=== PATIENT | female | born 1965 | race Caucasian/White ===

== ENCOUNTER 2024-09-16 10:39 | Outpatient (RCR) | payer MEDICAID, SELFPAY | END 2024-09-16 23:59 | disposition home or self-care (01) | LOC: PT.CARL 10:39 | PROVIDERS: Visit Provider Physician Assistant | DX: M47.816 Spondylosis without myelopathy or radiculopathy, lumbar region (principal) | CPT/HCPCS: 97162 ==

== ENCOUNTER 2024-11-04 11:00 | Outpatient (RCR) | payer MEDICAID, SELFPAY | END 2024-11-04 23:59 | disposition home or self-care (01) | LOC: PT.CARL 11:00 | PROVIDERS: Visit Provider Physician Assistant | DX: M79.18 Myalgia, other site (principal) | CPT/HCPCS: 97032; 97035; 97110; 97161 ==

== ENCOUNTER 2024-12-02 10:39 | Outpatient (RCR) | payer MEDICAID, SELFPAY | END 2024-12-02 23:59 | disposition home or self-care (01) | LOC: PT.CARL 10:39 | PROVIDERS: Visit Provider Physician Assistant | DX: M79.18 Myalgia, other site (principal) ==

== ENCOUNTER 2025-02-27 17:49 | Emergency (ER) | payer MEDICAID, SELFPAY ==
--- OUTSIDE RECORDS SUMMARY | 2025-01-07 10:37 | XMS_ITS | Continuity of Care Document ---
Author Organization [facility] Phone Care Team Providers Care Taker Off Braker Machine Name Role Phone COLTEN CRUMP Surgeon COLTEN CRUMP Primary Attending COLTEN CRUMP Unavailable JENNA DE GUZMAN Primary Care COLTEN CRUMP Admitting ALLERGIES AND ADVERSE REACTIONS ALLERGIES AND ADVERSE REACTIONS Code System Allergy Substance Adverse Reaction Date Reaction (Severity) Comment Status Reported By Updated By 7480 RXNorm CODEINE Adverse reaction to substance Not Specified active [id number] on May 17, 2023 3:47:[address] [facility] 67629 RXNorm PROVIGIL Rash Shortness of breath/diffi culty breathing active [id number] on May 17, 2023 3:47:28 AM UT [id number] RXNorm PERCOCET Rash Shortness of breath/diffi culty breathing active [id number] on May 17, 2023 3:47:28 AM UT ASSESSMENTS Mononeuropathy ; FAMILY HISTORY RELATION: Father Status: Cause of : Unknown Age at : 70 SNOMED-CT Diagnosis Age At Onset [id number] Chronic obstructive lung disease RELATION: Mother Status: Cause of : Unknown Age at : 49 SNOMED-CT Diagnosis Age At Onset [id number] Heart-lung transplant failure an d rejection PROBLEMS PATIENT PROBLEMS Code Description/Comments Category Status Upda lopez By [id number] Mononeuropathy active [id number] on December 28, 2024 1:28:53 PM UT MEDICATIONS HOME MEDICATIONS Status RXNORM NDC Medication Dose Route Frequency Dates Comments Reported By Updated By Active 18779 08925 7 Biotin Oral Tablet 01549 MCG 17736 .0 MCG ORAL DAILY Last Dose: [id number] on 2024 1:52:21 PM UT Active 129659 71197 47767 3 buPROPion (WELLBUTRIN XL) 300.0 MG ORAL DAILY Last Dose: [id number] on [facility] 2024 1:52:21 PM UT Active 2146869 01503 67683 6 colestipol (COLESTID) 1.0 GM ORAL BID Last Dose: [id number] on [facility] 2024 1:52:21 PM UT Active 52220 77679 7 Cranberry Ultra Strength Oral Capsule 250-60 MG 1.0 CAP ORAL BID Last Dose: [id number] on [facility] 2024 1:52:21 PM UT Active 680377 63778 70149 6 Dexlansopraz ole Capsule Delayed Release 30 MG 30.0 MG ORAL DAILY Last Dose: [id number] on [facility] 2024 1:52:22 PM UT Active 2017514 51550 50493 1 Dimethyl Fumarate Capsule Delayed Release 240 MG 240.0 MG ORAL BID Last Dose: [id number] on [facility] 2024 1:52:22 PM UT Active 001752 40668 06547 0 EZETIMIBE 10.0 MG ORAL DAILY Last Dose: [id number] [facility] 2024 1:52:22 PM UT Active 5791459 27317 55423 1 fluticasone nasal (FLONASE) 50 MCG/ACT 1.0 SPR NASAL DAILY Last Dose: [id number] [facility] 2024 1:52:22 PM UT Active 588860 04799 68115 1 hydroCHLOROt hiazide 12.5 MG ORAL DAILY Last Dose: [id number] [facility] 2024 1:52:22 PM UT Active 906516 22343 65426 1 hydrOXYzine (ATARAX) 25.0 MG ORAL BID Last Dose: [id number] on [facility] 2024 1:52:22 PM UT Active 595684 38281 98821 0 Levocetirizi ne Dihydrochlor kina Tablet 5 MG 5.0 MG ORAL DAILY Last Dose: [id number] [facility] 2024 1:52:22 PM UT Active 192541 03985 97169 1 lisinopril (ZESTRIL) 5.0 MG ORAL DAILY Last Dose: myl4541 on [facility] 2024 1:52:[address] [facility] Active 335195 81422 10966 0 Meclizine HCl Oral Tablet 12.5 MG 12.5 MG ORAL TIDPRN Last Dose: [id number] on [facility] 2024 1:52:23 PM UT Active 549353 70242 59732 5 melatonin 5.0 MG ORAL BEDTIME Last Dose: btl4335 on [facility] 2024 1:52:23 PM UT Active 117897 94157 56447 1 methocarbamo l (ROBAXIN) 500.0 MG ORAL TID Last Dose: rsh3471 on [facility] 2024 1:52:[address] [facility] Active 325225 28076 13822 7 Metoprolol Succinate ER Tablet Extended Release 24 Hour 50 MG 50.0 MG ORAL DAILY Last Dose: [id number] on [facility] 2024 1:52:[address] [facility] Active 44770 68860 1 multiple vitamin (ONE-A-DAY) 1.0 TAB ORAL DAILY Last Dose: [id number] on [facility] 2024 1:52:[address] [facility] Active 317633 33356 06293 1 oxybutynin chloride (DITROPAN) 5.0 MG ORAL BID Last Dose: [id number] on [facility] 2024 1:52:[address] [facility] Active 1085889 84057 16928 8 Prempro Oral Tablet 0.45-1.5 MG 1.0 TAB ORAL DAILY Last Dose: [id number] on [facility] 2024 1:52:[address] [facility] Active 476935 86712 12638 0 traMADol (ULTRAM) 50.0 MG ORAL BIDPRN Last Dose: [id number] on [facility] 2024 1:52:[address] [facility] DISCHARGE MEDICATIONS Status RXNORM NDC Medication Dose Route Frequency Dates Dis pense Data Comments Physician Updated By No Discharge Medication Info rmation Available INPATIENT MEDICATIONS Status RXNORM ND Medication Dose Route Frequency Rat e Quantity Dates Indication Dispense Data Comments Physician Updated By [facility] [id number] 9871 9028 520 diazePAM (VALIUM) 5 MG TABS 5.0 MG ORAL ONE TIME ONLY (SCHEDULED DOSE) Start: 2024 11:35: 00 AM UTC End: 2024 11:35: 00 AM UTC [facility] 11:35:00 AM UTC Discont inued 0539976 6486 3048 917 lidocaine MPF w/epi 2 %-1:209777 SOLN 10.0 ML INTRAV ENOUS ONE TIME ONLY (SCHEDULED DOSE) Start: 2024 11:35: 00 AM UTC End: 2024 11:35: 00 AM UTC MUNISWAMY COLTEN K INTERFAC ED on 2024 11:35:00 AM UTC Discont inued 9634120 0040 9115 901 bupivacaine PF 0.25% 10 ML SOLN 10.0 ML EPIDUR AL ONE TIME ONLY (SCHEDULED DOSE) Start: 2024 11:35: 00 AM UTC End: 2024 11:35: 00 AM UTC MUNISWAMY COLTEN K INTERFAC ED on 2024 11:35:00 AM UT SOCIAL HISTORY SOCIAL HISTORY - Smoking Status SNOMED-CT Social History Element Description Effective Dates Offered Cessation Comment Updated By [id number] Historical Tobacco smoking status Never Smoked Not Applicable [id number] on May 13, 2023 12:42:41 PM UT SOCIAL HISTORY - Gender Sex: Female SOCIAL HISTORY - Status : status i nformation is not available Intention in Next Year: intention information is not available SOCIAL HISTORY - Assessments Code System Description Status Date Value of Assessment Updated By Comment Assessment Information is no t available SOCIAL HISTORY - [place] Affiliation [place] information is not av ailable SOCIAL HISTORY - Legal Sex Legal Sex information is not available SOCIAL HISTORY - Sexual Behavior Sexual Orientation Gender Identity SNOMED-CT Description SNO MED -CT Description Activity Level No of Partners Partner Type UpdatedBy Information is not available SOCIAL HISTORY - Occupation Occupation information is no t available VITAL SIGNS PATIENT VITAL SIGNS This section displays the mo st recent value for each vital sign as of January 07, 2025 3:37:11 PM UT Loinc Code Vital Sign Activity Date Result Updated By 8302-2 Body height December 28 1:52:07 PM UTC 167.64 cm (66.0 in) [id number] on December 28, 2024 1:52:[place] [address]-0 Body mass index (BMI) [Ratio] December 28, 2024 1:52:07 PM UTC 39.141 kg/m2 3140-1 Body Surface Area Derived From Formula December 28, 2024 1:52:07 PM UTC 2.1709 m2 57805-0 Body weight Measured December 28, 2024 1:52:07 PM UTC 110.0 kg (243.0 lb) [id number] on December 28, 2024 1:52:07 PM UT PEDIATRIC GROWTH CHART - VITAL SIGNS This section displays Head C ircumference Percentile, Weight for Length Percentile and BMI Percentile Loinc Code Pediatric Measure Age (Months) Result Updat ed By No Pediatric Growth Chart Pe rcentile Information Available. PROCEDURES PATIENT PROCEDURES Procedure information is not available. PROCEDURE NOTE Note Title [facility] - Post Procedur e Note procedure done on 12/30/2024 Date Of Service January 04, 2025 3 :13:14 PM UT Created By [id number] on January 04, 2025 3:13:14 PM UTC Signed By [id number] on January 04, 2025 3:21:51 PM UTC Procedure / Surgery None right knee peripheral nerve stimulator trial Pre-Procedure Diagnosis Mononeuropathy Post- Procedure Diagnosis Mononeuropathy Procedure Description / Findings PNS Trial Procedure for mononeuropathy of the right lower extremity. Electrode Array Placement Procedure 00845 Trial x 2 leads After informed consent was obtained the patient was transported to the operative suite and placed in the Supine position. Noninvasive monitoring per routine anesthesia protocol were placed. The skin of right lower extremity was prepped with chloraprep and draped in sterile fashion to include sterile mask down, gloves, and surgical draping. The device package containing the electrode array is unpackaged and kept in the sterile field. The electrode array is laid on the skin and the 0 electrode at the top of the device is placed at the _ infrapatellar saphenous nerve {proximal} of the __medial tibial shaft___ location which is identified via {Fluoroscope}. Using a skin marker, a 1 cm sagittal line was marked over the needle entry location distally. The skin and deeper tissues was anesthetized using a mixture of 1% lidocaine and 0.25% bupivacaine with 1:100,000 Epinephrine. A 13G Coude needle was used to allow for easy insertion of the introducer. An introducer was passed through the subcutaneous tissues toward the __ infrapatellar nerve ___ nerve target. The introducer was advanced using a tenting approach to stay within the subcutaneous layer and to prevent diving into muscular fascia. The introducer is placed at a shallow angle no more than 10 degrees. The electrode array was inserted through the introducer and advanced to the _ infrapatellar ____ nerve {distal} along side the medial border of the proximal tibial plateau. The 2nd electrode array was inserted along the same tract with the 1st but was placed more superficially and not close to the bone. The needles were removed and the leads were secured to the skin using Stay-fix and a sterile covaderm dressing was placed. The connector device was secured to the skin using paper tape. Patient was then taken to the post anesthesia recovery area where the patient underwent further neurologic mapping with excellent coverage of the desired nerve per their report. There were no complications to the procedure. Patient will follow up in five days for evaluation of the spinal cord stimulator trial and lead removal. HARDWARE USED: 2 Lead Curonix electrodes Anesthesia Type Local anesthesia Specimens None Implants Not applicable Procedure Verfication Patient identity confirmed before operative/invasive procedure, Procedure time out, Verification of surgical site/laterality, Verification of surgical device count Estimated Blood Loss none Complications None Disposition of Patient home Electronically signed by SUSY STUART on [address] [facility] Problems Concern Status Health Concern problem infor mation not available. Smoking Status Status Years Used Consumed packs p er day Health Concern smoking histo ry information not available. Family History Concern Status Health Concern family histor y information not available. ENCOUNTERS ENCOUNTER INFORMATION Reason for Visit PNS TRIAL X 2 LEADS Admission December 30, 2024 11:21:00 AM U [facility] [address] [facility] [address] Discharge December 30, 2024 7:21:00 PM UT C DISCHARGED TO HOME OR SELF CARE ENCOUNTER DIAGNOSES Notes information is not drew ilable. Code System Diagnosis Onset Date Diagnosis information is not available. ABSTRACT DIAGNOSES Code System Diagnosis Updated By Abatement Date G58.9 ICD10 MONONEUROPATHY, UNSPECIFIED [id number] on January 07, 2025 3:36:43 PM UT G58.9 ICD10 MONONEUROPATHY, UNSPECIFIED [id number] on January 07, 2025 3:36:[address] [facility] M25.561 ICD10 PAIN IN RIGHT KNEE [id number] o n January 07, 2025 3:36:43 PM UT M19.011 ICD10 PRIMARY OSTEOART HRITIS, RIGHT SHOULDER [id number] on January 07, 2025 3:36:[address] 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 T84.84XD ICD10 PAIN DUE TO INTE RNAL ORTHOPEDIC PROSTHETIC DEVICES, IMPLANTS AND GRAFTS, SUBSEQUENT ENCOUNTER [id number] on January 07, 2025 3:36:[address] [facility] M25.511 ICD10 PAIN IN RIGHT SHOULDER [id number] on January 07, 2025 3:36:[address] [facility] M70.51 ICD10 OTHER BURSITIS O F KNEE, RIGHT KNEE [id number] on January 07, 2025 3:36:[address] [facility] M54.40 ICD10 LUMBAGO WITH SCI ATICA, UNSPECIFIED SIDE [id number] on January 07, 2025 3:36:[address] [facility] M79.18 ICD10 MYALGIA, OTHER SITE [id number] on January 07, 2025 3:36:[address] 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 Z88.8 ICD10 ALLERGY STATUS T O OTHER DRUGS, MEDICAMENTS AND BIOLOGICAL SUBSTANCES [id number] on January 07, 2025 3:36:[address] [facility] CARE TEAM Care Taker Off Braker Machine Role COLTEN CRUMP Surgeon COLTEN CRUMP Primary Attending COLTEN CRUMP Referring JENNA GAB Primary Care COLTEN CRUMP Admitting HOSPITAL DISCHARGE INSTRUCTION DISCHARGE INSTRUCTION Encounter [id number] Admit Date December 30, 2024 1 1:21:00 AM UTC Discharge Date December 30, 2024 7 :21:00 PM UTC PATIENT EDUCATION SUMMARY Patient/Visit Information: Patient Name: MAX MORRISSEY Diag: Attending Caregiver: SUSY Hudson Discharge Instruction Sheets Provided: Dr. Crump Spinal Cord Stimulator Patient Instructions: Followup Appointments/Instructions: CARE TEAM CARE director summer sessions Role on Team Location Telecom Status Start Date End Keon e Updated By SUSY STUART Surgeon normal December 30, 2024 11:21:00 AM UTC December 30, 2024 7:21:00 PM UTC [id number] on January 07, 2025 3:36:50 PM UTC GAB JENNA PCP normal December 25, 2024 5:14:16 PM UTC December 30, 2024 7:21:00 PM UTC [id number] on January 07, 2025 3:36:50 PM UTC SUSY STUART Referring normal December 25, 2024 5:14:16 PM UTC December 30, 2024 7:21:00 PM UTC [id number] on January 07, 2025 3:36:50 PM UTC SUSY STUART Attending normal December 25, 2024 5:14:16 PM UTC December 30, 2024 7:21:00 PM UTC [id number] on January 07, 2025 3:36:50 PM UTC SUSY STUART Admitting normal December 25, 2024 5:14:16 PM UTC December 30, 2024 7:21:00 PM UTC [id number] on January 07, 2025 3:36:50 PM UTC
--- OUTSIDE RECORDS SUMMARY | 2025-01-18 08:37 | XMS_ITS | Continuity of Care Document ---
Author Organization [facility] Phone Care Team Providers Care Elementary Secretary Name Role Phone COLTEN JAIN Admitting COLTEN JAIN Primary Attending JENNA DE GUZMAN Primary Care COLTEN JAIN Unavailable ALLERGIES AND ADVERSE REACTIONS ALLERGIES AND ADVERSE REACTIONS Code System Allergy Substance Adverse Reaction Date Reaction (Severity) Comment Status Reported By Updated By 6274 RXNorm CODEINE Adverse reaction to substance Not Specified active [id number] on May 17, 2023 3:47:27 AM [facility] [[email or web address]] 05840 RXNorm PROVIGIL Rash Shortness of breath/diffi culty breathing active [id number] on May 17, 2023 3:47:28 AM [facility] [[email or web address]] 195142 RXNorm PERCOCET Rash Shortness of breath/diffi culty breathing active [id number] on May 17, 2023 3:47:28 AM [facility] [[email or web address]] FAMILY HISTORY RELATION: Father Status: Cause of : Unknown Age at : 70 SNOMED-CT Diagnosis Age At Onset [id number] Chronic obstructive lung disease RELATION: Mother Status: Cause of : Unknown Age at : 49 SNOMED-CT Diagnosis Age At Onset [id number] Heart-lung transplant failure an d rejection MEDICATIONS HOME MEDICATIONS Status RXNORM NDC Medication Dose Route Frequency Dates Comments Reported By Updated By Drug Treatment Unknown DISCHARGE MEDICATIONS Status RXNORM NDC Medication Dose Route Frequency Dates Dis pense Data Comments Physician Updated By No Discharge Medication Info rmation Available INPATIENT MEDICATIONS Status RXNORM NDC Medication Dose Route Frequency Rat e Quantity Dates Indication Dispense Data Comments Physician Updated By No Inpatient Medication Info rmation Available SOCIAL HISTORY SOCIAL HISTORY - Smoking Status SNOMED-CT Social History Element Description Effective Dates Offered Cessation Comment Updated By [id number] Historical Tobacco smoking status Never Smoked Not Applicable [id number] on May 13, 2023 12:42:41 PM UT SOCIAL HISTORY - Gender Sex: Female SOCIAL HISTORY - Status : status i nformation is not available Intention in Next Year: intention information is not available SOCIAL HISTORY - Assessments Code System Description Status Date Value of Assessment Updated By Comment Assessment Information is no t available SOCIAL HISTORY - Hopi Affiliation Hopi information is not av ailable SOCIAL HISTORY - Legal Sex Legal Sex information is not available SOCIAL HISTORY - Sexual Behavior Sexual Orientation Gender Identity SNOMED-CT Description SNO MED -CT Description Activity Level No of Partners Partner Type UpdatedBy Information is not available SOCIAL HISTORY - Occupation Occupation information is no t available [facility] CONCERNS Problems Concern Status Health Concern problem infor mation not available. Smoking Status Status Years Used Consumed packs p er day Health Concern smoking histo ry information not available. Family History Concern Status Health Concern family histor y information not available. ENCOUNTERS ENCOUNTER INFORMATION Reason for Visit OV Admission January 06, 2025 12:36:[address] [address] Discharge January 06, 2025 12:36:00 PM [facility] [[email or web address]] DISCHARGED TO HOME OR SELF CARE ENCOUNTER DIAGNOSES Notes information is not drew ilable. Code System Diagnosis Onset Date Diagnosis information is not available. 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, LUMBAR REGION [id number] on January 18, 2025 1:36:42 PM [facility] [[email or web address]] T84.84XD ICD10 PAIN DUE TO INTE RNAL ORTHOPEDIC PROSTHETIC DEVICES, IMPLANTS AND GRAFTS, SUBSEQUENT ENCOUNTER [id number] on January 18, 2025 1:36:42 PM [facility] [email or web address]] M25.511 ICD10 PAIN IN RIGHT SHOULDER [id number] on January 18, 2025 1:36:42 PM [facility] [email or web address]] M70.51 ICD10 OTHER BURSITIS O F KNEE, RIGHT KNEE [id number] on January 18, 2025 1:36:42 PM UTC M54.40 ICD10 LUMBAGO WITH SCI ATICA, UNSPECIFIED SIDE [id number] on January 18, 2025 1:36:42 PM UTC M79.18 ICD10 MYALGIA, OTHER SITE [id number] on January 18, 2025 1:36:42 PM UTC G58.9 ICD10 MONONEUROPATHY, UNSPECIFIED [id number] on January 18, 2025 1:36:42 PM UTC Z88.5 ICD10 ALLERGY STATUS T O NARCOTIC AGENT [id number] on January 18, 2025 1:36:42 PM UTC Z87.442 ICD10 PERSONAL HISTORY OF URINARY CALCULI [id number] on January 18, 2025 1:36:42 PM UTC Z87.19 ICD10 PERSONAL HISTORY OF OTHER DISEASES OF THE DIGESTIVE SYSTEM [id number] on January 18, 2025 1:36:42 PM UTC K76.0 ICD10 FATTY (CHANGE OF ) LIVER, NOT ELSEWHERE CLASSIFIED [id number] on January 18, 2025 1:36:42 PM UTC N28.1 ICD10 CYST OF KIDNEY, ACQUIRED OIK 7837 on January 18, 2025 1:36:42 PM UTC K57.30 ICD10 DIVERTICULOSIS O F LARGE INTESTINE WITHOUT PERFORATION OR ABSCESS WITHOUT BLEEDING [id number] on January 18, 2025 1:36:42 PM UTC 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 [id number] on January 18, 2025 1:36:42 PM [facility] [email or web address]] CARE TEAM Care Elementary Secretary Role COLTEN JAIN Admitting COLTEN JAIN Primary Attending JENNA DE GUZMAN Primary Care COLTEN JAIN Referring CARE TEAM CARE deputy district customs director Role on Team Location Telecom Status Start Date End Keon e Updated By GAB WEST PCP normal January 06, 2025 4:00:00 AM [facility] [[email or web address]] January 06, 2025 12:36:00 PM [facility] [[email or web address]] [id number] on January 06, 2025 12:37:23 PM [facility] [[email or web address]] SUSY STUART Referring normal January 06, 2025 4:00:00 AM [facility] [[email or web address]] January 06, 2025 12:36:00 PM [facility] [[email or web address]] [id number] on January 06, 2025 12:37:23 PM [facility] [[email or web address]] SUSY STUART Attending normal January 06, 2025 4:00:00 AM [facility] [[email or web address]] January 06, 2025 12:36:00 PM [facility] [[email or web address]] [id number] on January 06, 2025 12:37:23 PM [facility] [[email or web address]] SUSY STUART Admitting normal January 06, 2025 4:00:00 AM [facility] [[email or web address]] January 06, 2025 12:36:00 PM [facility] [[email or web address]] [id number] on January 06, 2025 12:37:23 PM [facility] [[email or web address]]
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
--- OUTSIDE RECORDS SUMMARY | 2025-02-03 23:21 | XMS_ITS | Continuity of Care Document ---
Author Organization [facility] Phone Care Team Providers Care Booster Assembler Name Role Phone COLTEN JAIN Admitting COLTEN JAIN Unavailable COLTEN JAIN Primary Attending [phone] UNDEFINED, PROVIDER Primary Care Unavailable ALLERGIES AND ADVERSE REACTIONS ALLERGIES AND ADVERSE REACTIONS Code System Allergy Substance Adverse Reaction Date Reaction (Severity) Comment Status Reported By Updated By [id number] RXNorm CODEINE Adverse reaction to substance Not Specified active [id number] on May 17, 2023 3:47:27 AM [facility] [id number] RXNorm PROVIGIL Rash Shortness of breath/diffi culty breathing active [id number] on May 17, 2023 3:47:28 AM [facility] [id number] RXNorm PERCOCET Rash Shortness of breath/diffi culty breathing active [id number] on May 17, 2023 3:47:28 AM [facility] FAMILY HISTORY RELATION: Father Status: Cause of : Unknown Age at : 70 SNOMED-CT Diagnosis Age At Onset [id number] Chronic obstructive lung disease RELATION: Mother Status: Cause of : Unknown Age at : 49 SNOMED-CT Diagnosis Age At Onset [id number] Heart-lung transplant failure an d rejection MEDICATIONS [...] Effective Dates Offered Cessation Comment Updated By [id number] Historical Tobacco smoking status Never Smoked Not Applicable [id number] on May 13, 2023 12:42:41 PM [facility] SOCIAL HISTORY - Gender Sex: Female SOCIAL HISTORY - Status : status i nformation is not available Intention in Next Year: intention information is not available SOCIAL HISTORY - Assessments Code System Description Status Date Value of Assessment Updated By Comment Assessment Information is no t available SOCIAL HISTORY - Navajo Affiliation Navajo information is not av ailable SOCIAL HISTORY [...] ENCOUNTER INFORMATION Reason for Visit OV Admission February 03, 2025 2:43:[address] [id number] Discharge February 03, 2025 2:43:00 PM [facility] DISCHARGED TO HOME OR SELF CARE ENCOUNTER DIAGNOSES Notes information is not drew ilable. Code System Diagnosis Onset Date Diagnosis information is not available. ABSTRACT DIAGNOSES Code System Diagnosis Updated By Abatement Date Abstract Diagnosis informati on is not available. 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 Role on Team Location Telecom Status Start Date End Keon e Updated By UNDEFINED PROVIDER PCP normal February 03, 2025 4:00:00 AM [facility] February 03, 2025 2:43:00 PM [facility] [id number] on February 03, 2025 2:43:42 PM [facility] SUSY GANNONOD K PHY Referring normal February 03, 2025 4:00:00 AM [facility] February 03, 2025 2:43:00 PM [facility] [id number] on February 03, 2025 2:43:42 PM [facility] MUNNIKOMY COLTEN K PHY Attending normal February 03, 2025 4:00:00 AM [facility] February 03, 2025 2:43:00 PM [facility] [id number] on February 03, 2025 2:43:42 PM UTC SUSY Hudson PHY Admitting normal February 03, 2025 4:00:00 AM [facility] February 03, 2025 2:43:00 PM [facility] [id number] on February 03, 2025 2:43:42 PM [facility]
--- OUTSIDE RECORDS SUMMARY | 2025-02-05 02:06 | XMS_ITS | Continuity of Care Document ---
Author Organization Phone Care Team Providers Care Field Marketing Lead Name Role Phone JENNA DE GUZMAN Primary Care COLTEN JAIN Primary Attending [phone] COLTEN JAIN Admitting ALLERGIES AND ADVERSE REACTIONS ALLERGIES AND ADVERSE REACTIONS Code System Allergy Substance Adverse Reaction Date Reaction (Severity) Comment Status Reported By Updated By [id number] RXNorm CODEINE Adverse reaction to substance Not Specified active [id number] on May 17, 2023 3:47:[place] [address] RXNorm PROVIGIL Rash Shortness of breath/diffi culty breathing active [id number] on May 17, 2023 3:47:28 AM [place] [id number] RXNorm PERCOCET Rash Shortness of breath/diffi culty breathing active [id number] on May 17, 2023 3:47:28 AM [facility] FAMILY HISTORY RELATION: Father Status: Cause of : Unknown Age at : 70 SNOMED-CT Diagnosis Age At Onset [id number] Chronic obstructive lung disease RELATION: Mother Status: Cause of : Unknown Age at : 49 SNOMED-CT Diagnosis Age At Onset [id number] Heart-lung transplant failure an d rejection RESULTS Patient: YUNI Patten Date of : 1965 9 LABORATORY RESULTS ORDER 100: CBC NO DIFF HEMOG OLIVIER (LOINC: 26093-5) ORDER DATE: February 03, 2025 4:09:00 PM [place] Specimen Source: EDTA Specimen Type: Blood specime n with EDTA PERFORMING LAB: [address] [id number] Result Comment: Final Result Date: February 03, 2025 5:13:00 PM [place] (TECH: AAC) LOINC TEST FLAG RESULT REFERENCE RANGE UPDA MARIAJOSE BY 6690-2 Leukocytes [#/volume ] in Blood by Automated count N 5.5 K/ul 4.0 K/ul - 10.5 K/ul February 03, 2025 5:13:00 PM UTC (TECH: AAC) 789-8 Erythrocytes [#/volume] in Blood by Automated count N 4.6 M/mm3 4.2 M/mm3 - 6.4 M/mm3 February 03, 2025 5:13:00 PM UTC (TECH: AAC) 718-7 Hemoglobin [Mass/volume] in Blood N 13.3 gm/dl 12.5 gm/dl - 16.0 gm/dl February 03, 2025 5:13:00 PM UTC (TECH: AAC) 40502-8 Hematocrit [Volume Fraction] of Blood N 41.2 % 37.0 % - 47.0 % February 03, 2025 5:13:00 PM UTC (TECH: AAC) 787-2 Erythrocyte mean corpuscular volume [Entitic volume] by Automated count N 89.0 fl 78 fl - 100 fl February 03, 2025 5:13:00 PM UTC (TECH: AAC) 785-6 Erythrocyte mean corpuscular hemoglobin [Entitic mass] by Automated count N 28.7 pg 27 pg - 31 pg February 03, 2025 5:13:00 PM UTC (TECH: AAC) 786-4 Erythrocyte mean corpuscular hemoglobin concentration [Mass/volume] by Automated count N 32.3 g/dl 32 g/dl - 36 g/dl February 03, 2025 5:13:00 PM UTC (TECH: AAC) 56998-6 Erythrocyte distribution width [Ratio] N 13.1 % 11.5 % - 14.0 % February 03, 2025 5:13:00 PM UTC (TECH: AAC) 777-3 Platelets [#/volume] in Blood by Automated count N 313 K/ul 150 K/ul - 450 K/ul February 03, 2025 5:13:00 PM UTC (TECH: AAC) 43785-0 Platelet mean volume [Entitic volume] in Blood by Automated count H 9.9 fl 6 fl - 9.5 fl February 03, 2025 5:13:00 PM UTC (TECH: AAC) 79081-5 Manual Differential panel - Blood N NO February 03, 2025 5:13:00 PM UTC (TECH: AAC) ORDER 200: COMP METABOLIC PA RHEA (LOINC: 31797-0) ORDER DATE: February 03, 2025 4:09:00 PM UTC Specimen Source: PLASMA Specimen Type: Plasma specim en PERFORMING LAB: [address] [id number] Result Comment: Final Result Date: February 03, 2025 5:32:00 PM UTC (TECH: ARR) LOINC TEST FLAG RESULT REFERENCE RANGE UPDA MARIAJOSE BY 2951-2 Sodium [Moles/volume ] in Serum or Plasma N 140 mmol/L 136 mmol/L - 145 mmol/L February 03, 2025 5:32:00 PM UTC (TECH: ARR) 2823-3 Potassium [Moles/vol ume] in Serum or Plasma N 4.0 mmol/L 3.6 mmol/L - 5.0 mmol/L February 03, 2025 5:32:00 PM UTC (TECH: ARR) 5-0 Chloride [Moles/volu me] in Serum or Plasma N 105 mmol/L 98 mmol/L - 107 mmol/L February 03, 2025 5:32:00 PM UTC (TECH: ARR) 2027-9 Carbon dioxide, tota l [Moles/volume] in Serum or Plasma N 25.3 mmol/L 21.0 mmol/L - 32.0 mmol/L February 03, 2025 5:32:00 PM UTC (TECH: ARR) 54488-1 Anion gap in Blood N 13.7 O ctober 2024 5:32:00 PM UTC (TECH: ARR) 2345-7 Glucose [Mass/volume ] in Serum or Plasma N 89 mg/dl 70 mg/dl - 120 mg/dl February 03, 2025 5:32:00 PM UTC (TECH: ARR) 6299-2 Urea nitrogen [Mass/volume] in Blood N 14 mg/dL 7 mg/dL - 18 mg/dL Octobe r 2024 5:32:00 PM UTC (TECH: ARR) 82735-9 Creatinine [Moles/vo lume] in Blood N 0.8 mg/dL 0.6 mg/dL - 1.3 mg/dL February 03, 2025 5:32:00 PM UTC (TECH: ARR) 67683-9 Glomerular filtratio n rate/1.73 sq M.predicted by Creatinine-based formula (MDRD) N 86 mlpermin 60 mlpermin February 03, 2025 5:32:00 PM UTC (TECH: ARR) 83978-3 Osmolality of Serum or Plasma by calculated by sum of electrolytes N 291 mosm/kg 275 mosm/kg - 301 mosm/kg February 03, 2025 5:32:00 PM UTC (TECH: ARR) 2885-2 Protein [Mass/volume ] in Serum or Plasma N 7.0 g/dl 6.4 g/dl - 8.2 g/dl February 03, 2025 5:32:00 PM UTC (TECH: ARR) 1751-7 Albumin [Mass/volume ] in Serum or Plasma L 3.1 g/dl 3.4 g/dl - 5.0 g/dl February 03, 2025 5:32:00 PM UTC (TECH: ARR) 2336-6 Globulin [Mass/volum e] in Serum N 3.9 February 03, 2025 5:32:00 PM UTC (TECH: ARR) 1759-0 Albumin/Globulin [Ma ss Ratio] in Serum or Plasma N 0.8 0.7 - 2 Octobe 2024 5:32:00 PM UTC (TECH: ARR) 52836-9 Calcium [Mass/volume ] in Serum or Plasma N 9.1 mg/dl 8.5 mg/dl - 10.5 mg/dl February 03, 2025 5:32:00 PM UTC (TECH: ARR) 1975-2 Bilirubin.total [Mass/volume] in Serum or Plasma N 0.20 mg/dL 0.10 mg/dL - 1.00 mg/dL February 03, 2025 5:32:00 PM UTC (TECH: ARR) 1920-8 Aspartate aminotrans ferase [Enzymatic activity/volume] in Serum or Plasma N 26 U/L 0 U/L - 37 U/L February 03, 2025 5:32:00 PM UTC (TECH: ARR) 1742-6 Alanine aminotransfe rase [Enzymatic activity/volume] in Serum or Plasma N 30 U/L 0 U/L - 65 U/L February 03, 2025 5:32:00 PM [facility] (TECH: ARR) 6768-6 Alkaline phosphatase [Enzymatic activity/volume] in Serum or Plasma N 116 U/L 46 U/L - 116 U/L February 03 5:32:00 PM [facility] (TECH: ARR) LABORATORY NARRATIVE RESULTS Information is not available RADIOLOGY RESULTS Information is not available PATHOLOGY NARRATIVE RESULTS Information is not available MICROBIOLOGY RESULTS No Micro Labs/Results Exist for Patient BLOOD ADMIN RESULTS Information is not available MEDICATIONS HOME MEDICATIONS Status RXNORM NDC Medication [...] Effective Dates Offered Cessation Comment Updated By [id number] Historical Tobacco smoking status Never Smoked Not Applicable [id number] on May 13, 2023 12:42:41 PM [facility] SOCIAL HISTORY - Gender Sex: Female SOCIAL HISTORY - Status : status i nformation is not available Intention in Next Year: intention information is not available SOCIAL HISTORY - Assessments Code System Description Status Date Value of Assessment Updated By Comment Assessment Information is no t available SOCIAL HISTORY - Lummi Affiliation Lummi information is not av ailable SOCIAL HISTORY [...] available. ENCOUNTERS ENCOUNTER INFORMATION Reason for Visit PREOP Admission February 03, 2025 3:41:[address] [address] Discharge February 03, 2025 3:41:00 PM [facility] DISCHARGED TO HOME OR SELF CARE ENCOUNTER DIAGNOSES Notes information is not drew ilable. Code System Diagnosis Onset Date Diagnosis information is not available. 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, LUMBAR REGION [id number] on February 05, 2025 7:06:15 AM [facility] Z88.5 ICD10 ALLERGY STATUS T O NARCOTIC AGENT [id number] on February 05, 2025 7:06:15 AM [facility] Z88.8 ICD10 ALLERGY STATUS T O OTHER DRUGS, MEDICAMENTS AND BIOLOGICAL SUBSTANCES [id number] on February 05, 2025 7:06:15 AM [facility] CARE TEAM Care Field Marketing Lead Role JENNA DE GUZMAN Primary Care COLTEN JAIN Primary Attending COLTEN JAIN Admitting 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 Role on Team Location Telecom Status Start Date End Keon e Updated By [facility] normal January 4:00:00 AM [facility] February 03, 2025 3:41:00 PM [facility] [id number] on February 03, 2025 3:42:26 PM [facility] [place] [facility] Attending normal February 03, 2025 4:00:00 AM [facility] February 03, 2025 3:41:00 PM [facility] [id number] on February 03, 2025 3:42:26 PM [facility] [place] [facility] Admitting normal February 03, 2025 4:00:00 AM [facility] February 03, 2025 3:41:00 PM [facility] [id number] on February 03, 2025 3:42:26 PM [facility]
--- OUTSIDE RECORDS SUMMARY | 2025-02-11 10:15 | XMS_ITS | Continuity of Care Document ---
Author Organization [facility] Phone Care Team Providers Care Cork Insulator Helper Name Role Phone UNDEFINED, PROVIDER Primary Care Unavailable COLTEN CRUMP Primary Attending [phone] COLTEN CRUMP Admitting COLTEN CRUMP Surgeon COLTEN CRUMP Unavailable ALLERGIES AND ADVERSE REACTIONS ALLERGIES AND ADVERSE REACTIONS Code System Allergy Substance Adverse Reaction Date Reaction (Severity) Comment Status Reported By Updated By 6340 RXNorm CODEINE Adverse reaction to substance Not Specified active [id number] on February 08, 2025 6:38:[place] [address] RXNorm PROVIGIL Rash Shortness of breath/diffi culty breathing active [id number] on February 08, 2025 6:38:12 PM UT [id number] RXNorm PERCOCET Rash Shortness of breath/diffi culty breathing active [id number] on February 08, 2025 6:38:12 PM UT ASSESSMENTS Mononeuropathy of lower limb ; FAMILY HISTORY RELATION: Father Status: Cause of : Unknown Age at : 70 SNOMED-CT Diagnosis Age At Onset [id number] Chronic obstructive lung disease RELATION: Mother Status: Cause of : Unknown Age at : 49 SNOMED-CT Diagnosis Age At Onset [id number] Heart-lung transplant failure an d rejection PROBLEMS PATIENT PROBLEMS Code Description/Comments Category Status Upda lopez By [id number] Mononeuropathy of lower limb active [id number] on February 08, 2025 8:23:24 PM UT TREATMENT PLAN DISCHARGE MEDICATIONS Status RXNORM Medication Dose Route Frequency Dates Comments U pdated By Continued [id number] Pristiq Oral Tablet Extended Release 24 Hour 50 MG 1 TAB ORAL ONCE DAILY Prescribe d: February 09, 2025 2:35:30 PM UT [id number] on February 09, 2025 2:35:30 PM UT Continued 1264418 Vitamin D (Ergocalcife rol) Oral Capsule 1.25 MG (84356 UT) 1 TAB ORAL ONCE EACH MONTH Prescribe d: February 09, 2025 2:35:30 PM [facility] [id number] on February 09, 2025 2:35:30 PM UT Continued 668989 Meclizine HCl Oral Tablet 12.5 MG 12.5 MG ORAL THREE TIMES A DAY NEEDED Prescribe d: February 09, 2025 2:35:30 PM UT [id number] on February 09, 2025 2:35:30 PM UT Continued 221551 methocarbamo l (ROBAXIN) 500 MG ORAL THREE TIMES A DAY NEEDED Prescribe d: February 09, 2025 2:35:30 PM [facility] [id number] on February 09, 2025 2:35:30 PM UT Continued Vitamin B Complex Oral Capsule 1 TAB ORAL ONCE DAILY Prescribe d: February 09, 2025 2:35:30 PM [facility] [id number] on February 09, 2025 2:35:30 PM UT Continued 230566 Ampyra Oral Tablet Extended Release 12 Hour 10 MG 10 MG ORAL TWICE A DAY Prescribe d: February 09, 2025 2:35:30 PM [facility] [id number] on February 09, 2025 2:35:30 PM UT Continued 418567 Pravastatin Sodium Oral Tablet 10 MG 10 MG ORAL ONCE DAILY Prescribe d: February 09, 2025 2:35:30 PM [facility] [id number] on February 09, 2025 2:35:30 PM UT Continued multiple vitamin (ONE-A-DAY) 1 TAB ORAL ONCE DAILY Prescribe d: February 09, 2025 2:35:30 PM UT [id number] on February 09, 2025 2:35:30 PM UT Continued 070598 oxybutynin chloride (DITROPAN) 5 MG ORAL TWICE A DAY Prescribe d: February 09, 2025 2:35:30 PM [facility] [id number] on February 09, 2025 2:35:30 PM UT Continued 6293157 Prempro Oral Tablet 0.45-1.5 MG 1 TAB ORAL ONCE DAILY Prescribe d: February 09, 2025 2:35:30 PM [facility] [id number] on February 09, 2025 2:35:30 PM UT Continued 3383699 Kesimpta Subcutaneous Solution Auto-injecto r 20 MG/0.4ML 20 MG SUBCUTANEOU S ONCE EACH MONTH Prescribe d: February 09, 2025 2:35:30 PM [facility] [id number] on February 09, 2025 2:35:30 PM UT Continued 005195 Levocetirizi ne Dihydrochlor kina Tablet 5 MG 5 MG ORAL ONCE DAILY Prescribe d: February 09, 2025 2:35:30 PM UT [id number] on February 09, 2025 2:35:30 PM UT Continued 204950 melatonin 5 MG ORAL AT BEDTIME Prescribe d: February 09, 2025 2:35:30 PM [facility] [id number] on February 09, 2025 2:35:30 PM UT Continued 863174 Metoprolol Succinate ER Tablet Extended Release 24 Hour 50 MG 50 MG ORAL ONCE DAILY Prescribe d: February 09, 2025 2:35:30 PM UT [id number] on February 09, 2025 2:35:30 PM UT Continued 917234 hydrOXYzine (ATARAX) 25 MG ORAL TWICE A DAY Prescribe d: February 09, 2025 2:35:30 PM [facility] [id number] on February 09, 2025 2:35:30 PM UT Continued 452244 HYDROcodone- Acetaminophe n Oral Tablet 5-325 MG 1 TAB ORAL EVERY EIGHT HOURS Prescribe d: February 09, 2025 2:35:30 PM UT Take one tablet every 8 hours as needed for 4 days. [id number] on February 09, 2025 2:35:30 PM UT Continued 284988 Cephalexin Oral Capsule 500 MG 1 TAB ORAL EVERY EIGHT HOURS Prescribe d: February 09, 2025 2:35:30 PM UT Take one tablet every 8 hours for 7 days [id number] on February 09, 2025 2:35:30 PM UT Continued 810252 buPROPion (WELLBUTRIN XL) 300 MG ORAL ONCE DAILY Prescribe d: February 09, 2025 2:35:30 PM [facility] [id number] on February 09, 2025 2:35:30 PM UT Continued Cranberry Ultra Strength Oral Capsule 250-60 MG 1 CAP ORAL TWICE A DAY Prescribe d: February 09, 2025 2:35:30 PM UT [id number] on February 09, 2025 2:35:30 PM UT Continued 8613611 fluticasone nasal (FLONASE) 50 MCG/ACT 1 SPR NASAL ONCE DAILY Prescribe d: February 09, 2025 2:35:30 PM UT [id number] on February 09, 2025 2:35:30 PM UT Continued 083579 Vitamin D3 Maximum Strength Oral Capsule 125 MCG (5000 UT) 1 TAB ORAL ONCE DAILY Prescribe d: February 09, 2025 2:35:30 PM UT [id number] on February 09, 2025 2:35:30 PM UT PATIENT OPEN ORDERS Code System Descriptio n Frequency Occurrenc es Priority Category Start Date Ordering Physician Updated By Patient open order informati on is not available. SCHEDULED PROCEDURES Code System Description Status Scheduled Date Upd ated By [id number] SNOMED-CT FLUOROSCOPY GUID ED INSERTION OF VAGAL NERVE STIMULATOR scheduled February 09, 2025 12:31:00 PM [facility] [id number] on January 26, 2025 7:55:59 PM UT MEDICATIONS HOME MEDICATIONS Status RXNORM [facility] Medication Dose Route Frequency Dates Comments Reported By Updated By Active [id number] 24577 98323 3 buPROPion (WELLBUTRIN XL) 300.0 MG ORAL DAILY Last Dose: [facility] 2024 1:00:0 0 PM UT [id number] on February 09, 2025 12:18:00 PM UT Active 42021 01008 7 Cranberry Ultra Strength Oral Capsule 250-60 MG 1.0 CAP ORAL BID Last Dose: [facility] 2024 1:00:0 0 PM UT [id number] on February 09, 2025 12:18:12 PM [facility] Active 2790841 15623 06981 1 fluticasone nasal (FLONASE) 50 MCG/ACT 1.0 SPR NASAL DAILY Last Dose: [facility] 2024 2:00:0 0 AM UT [id number] on February 09, 2025 12:18:33 PM UT Active 361415 02252 97372 1 hydrOXYzine (ATARAX) 25.0 MG ORAL BID Last Dose: [facility] 2024 2:00:0 0 AM UT [id number] on February 09, 2025 12:18:55 PM UT Active 947434 28491 11975 0 Levocetirizi ne Dihydrochlor kina Tablet 5 MG 5.0 MG ORAL DAILY Last Dose: [facility] 2024 2:00:0 0 AM UTC [id number] on February 09, 2025 12:20:06 PM UTC Active 998481 78917 82488 0 Meclizine HCl Oral Tablet 12.5 MG 12.5 MG ORAL TIDPRN Last Dose: [id number] on February 08, 2025 8:28:26 PM UTC Active 130007 48758 34158 5 melatonin 5.0 MG ORAL BEDTIME Last Dose: [facility] 2024 2:00:0 0 AM UTC [id number] on February 09, 2025 12:20:23 PM UTC Active 070486 01744 33489 1 methocarbamo l (ROBAXIN) 500.0 MG ORAL TIDPRN Last Dose: [facility] 2024 1:00:0 0 AM UTC [id number] on February 09, 2025 12:20:42 PM UTC Active 529214 84157 40265 7 Metoprolol Succinate ER Tablet Extended Release 24 Hour 50 MG 50.0 MG ORAL DAILY Last Dose: [facility] 2024 1:00:0 0 PM UTC [id number] on February 09, 2025 12:20:51 PM UTC Active 64806 70217 1 multiple vitamin (ONE-A-DAY) 1.0 TAB ORAL DAILY Last Dose: [facility] 2024 1:00:0 0 PM UTC [id number] on February 09, 2025 12:21:02 PM UTC Active 583199 79779 59051 1 oxybutynin chloride (DITROPAN) 5.0 MG ORAL BID Last Dose: [facility] 2024 2:00:0 0 AM UTC [id number] on February 09, 2025 12:21:12 PM UTC Active 0457784 69619 96793 8 Prempro Oral Tablet 0.45-1.5 MG 1.0 TAB ORAL DAILY Last Dose: [facility] 2024 2:00:0 0 AM UTC [id number] on February 09, 2025 12:21:34 PM UTC Active 911087 00627 69856 0 Ampyra Oral Tablet Extended Release 12 Hour 10 MG 10.0 MG ORAL BID Last Dose: [facility] 2024 3:00:0 0 AM UTC [id number] on February 09, 2025 12:17:44 PM UTC Active 211371 27192 33302 1 Pristiq Oral Tablet Extended Release 24 Hour 50 MG 1.0 TAB ORAL DAILY Last Dose: [facility] 2024 1:00:0 0 PM UTC [id number] on February 09, 2025 12:21:45 PM UTC Active 171271 82643 64255 5 Pravastatin Sodium Oral Tablet 10 MG 10.0 MG ORAL DAILY Last Dose: [facility] 2024 2:00:0 0 AM UTC [id number] on February 09, 2025 12:21:25 PM UTC Active 80451 25922 6 Vitamin D (Ergocalcife rol) Oral Capsule 1.25 MG (49958 UT) 1.0 TAB ORAL QMONTH [facility] 12:[facility]: 00 PM UTC [id number] on February 09, 2025 12:22:21 PM UT Active 97254 11813 1 Vitamin D3 Maximum Strength Oral Capsule 125 MCG (5000 UT) 1.0 TAB ORAL DAILY Last Dose: [facility] 2024 1:00:0 0 PM UTC [id number] on February 09, 2025 12:22:35 PM UT Active 04182 83354 1 Vitamin B Complex Oral Capsule 1.0 TAB ORAL DAILY Last Dose: [facility] 2024 2:00:0 0 AM UTC [id number] on February 09, 2025 12:21:54 PM UT Active 6851935 01931 40046 8 Kesimpta Subcutaneous Solution Auto-injecto r 20 MG/0.4ML 20.0 MG SUBCUT ANEOUS QMONTH Last Dose: [facility] 2024 12:00: 00 PM UTC [id number] on February 09, 2025 12:19:55 PM UT DISCHARGE MEDICATIONS Status RXNORM NDC Medication Dose Route Frequency Dates Dis pense Data Comments Physician Updated By [facility] ed [id number] [phone] Pristiq Oral Tablet Extended Release 24 Hour 50 MG 1.0 TAB ORAL ONCE DAILY Prescr ibed: [facility] 2024 2:35:3 0 PM UTC SUSY STUART [id number] on February 09, 2025 2:35:30 PM UT Continu ed 6977825 4384 0073 706 Vitamin D (Ergocalcif shaquille) Oral Capsule 1.25 MG (94019 UT) 1.0 TAB ORAL ONCE EACH MONTH Prescr ibed: [facility] 2024 2:35:3 0 PM UT MUNISWAMY COLTEN K PHY [id number] on February 09, 2025 2:35:30 PM UT Continu ed 461197 3136 8013 910 Meclizine HCl Oral Tablet 12.5 MG 12.5 MG ORAL THREE TIMES A DAY NEEDED Prescr ibed: [facility] 2024 2:35:3 0 PM UTC MUNISWAMY COLTEN K PHY [id number] on February 09, 2025 2:35:30 PM UT Continu ed 509529 6959 0075 401 methocarbam ol (ROBAXIN) 500.0 MG ORAL THREE TIMES A DAY NEEDED Prescr ibed: [facility] 2024 2:35:3 0 PM UTC MUNISWAMY COLTEN K PHY [id number] on February 09, 2025 2:35:30 PM UT Continu ed 0053 6137 801 Vitamin B Complex Oral Capsule 1.0 TAB ORAL ONCE DAILY Prescr ibed: [facility] 2024 2:35:3 0 PM UTC MUNISWAMY COLTEN K PHY [id number] on February 09, 2025 2:35:30 PM UT Continu ed 282406 8014 4042 760 Ampyra Oral Tablet Extended Release 12 Hour 10 MG 10.0 MG ORAL TWICE A DAY Prescr ibed: [facility] 2024 2:35:3 0 PM UTC MUNISWAMY COLTEN K PHY [id number] on February 09, 2025 2:35:30 PM UT Continu ed 415180 5292 1022 905 Pravastatin Sodium Oral Tablet 10 MG 10.0 MG ORAL ONCE DAILY Prescr ibed: [facility] 2024 2:35:3 0 PM UTC MUNISWAMY OCLTEN K PHY [id number] on February 09, 2025 2:35:30 PM UT Continu ed 0090 4053 961 multiple vitamin (ONE-A-DAY) 1.0 TAB ORAL ONCE DAILY Prescr ibed: [facility] 2024 2:35:3 0 PM UTC MUNISWAMY COLTEN K PHY [id number] on February 09, 2025 2:35:30 PM UT Continu ed 914781 7923 1045 601 oxybutynin chloride (DITROPAN) 5.0 MG ORAL TWICE A DAY Prescr ibed: [facility] 2024 2:35:3 0 PM UTC MUNISWAMY COLTEN K PHY [id number] on February 09, 2025 2:35:30 PM UT Continu ed 3138900 2812 6094 728 Prempro Oral Tablet 0.45-1.5 MG 1.0 TAB ORAL ONCE DAILY Prescr ibed: [facility] 2024 2:35:3 0 PM UTC MUNISWAMY COLTEN K PHY [id number] on February 09, 2025 2:35:30 PM UT Continu ed 3569008 0007 8100 768 Kesimpta Subcutaneou s Solution Auto-inject or 20 MG/0.4ML 20.0 MG SUBCUT ANEOUS ONCE EACH MONTH Prescr ibed: [facility] 2024 2:35:3 0 PM UTC MUNISWAMY COLTEN K PHY [id number] on February 09, 2025 2:35:30 PM UT Continu ed 370504 7538 1028 290 Levocetiriz ine Dihydrochlo ride Tablet 5 MG 5.0 MG ORAL ONCE DAILY Prescr ibed: [facility] 2024 2:35:3 0 PM UTC MUNISWAMY COLTEN K PHY [id number] on February 09, 2025 2:35:30 PM UT Continu ed 672743 2669 8015 745 melatonin 5.0 MG ORAL AT BEDTIME Prescr ibed: [facility] 2024 2:35:3 0 PM UTC MUNISWAMY COLTEN K PHY [id number] on February 09, 2025 2:35:30 PM UT Continu ed 529428 3298 8421 897 Metoprolol Succinate ER Tablet Extended Release 24 Hour 50 MG 50.0 MG ORAL ONCE DAILY Prescr ibed: [facility] 2024 2:35:3 0 PM UTC MUNISWAMY COLTEN K PHY [id number] on February 09, 2025 2:35:30 PM UTC Continu ed 409647 1223 6016 001 hydrOXYzine (ATARAX) 25.0 MG ORAL TWICE A DAY Prescr ibed: [facility] 2024 2:35:3 0 PM UTC SUSY ABEL K PHY [id number] on February 09, 2025 2:35:30 PM UTC Continu ed 170487 6563 6010 901 HYDROcodone -Acetaminop hen Oral Tablet 5-325 MG 1.0 TAB ORAL EVERY EIGHT HOURS Prescr ibed: [facility] 2024 2:35:3 0 PM UTC Take one tablet every 8 hours as needed for 4 days. SUSY ABEL K PHY [id number] on February 09, 2025 2:35:30 PM UTC Continu ed 982198 7738 9005 820 Cephalexin Oral Capsule 500 MG 1.0 TAB ORAL EVERY EIGHT HOURS Prescr ibed: [facility] 2024 2:35:3 0 PM UTC Take one tablet every 8 hours for 7 days SUSY ABEL K PHY [id number] on February 09, 2025 2:35:30 PM UTC Continu ed 446372 9245 0010 203 buPROPion (WELLBUTRIN XL) 300.0 MG ORAL ONCE DAILY Prescr ibed: [facility] 2024 2:35:3 0 PM UTC SUSY GANNONOD K PHY [id number] on February 09, 2025 2:35:30 PM UTC Continu ed 1191 7016 867 Cranberry Ultra Strength Oral Capsule 250-60 MG 1.0 CAP ORAL TWICE A DAY Prescr ibed: [facility] 2024 2:35:3 0 PM UTC SUSY GANNONOD K PHY [id number] on February 09, 2025 2:35:30 PM UTC Continu ed 0833059 6779 5082 902 fluticasone nasal (FLONASE) 50 MCG/ACT 1.0 SPR NASAL ONCE DAILY Prescr ibed: [facility] 2024 2:35:3 0 PM UTC MUNISWACLAUDIO GANNONOD K PHY [id number] on February 09, 2025 2:35:30 PM UTC Continu ed 360824 0848 1031 271 Vitamin D3 Maximum Strength Oral Capsule 125 MCG (5000 UT) 1.0 TAB ORAL ONCE DAILY Prescr ibed: [facility] 2024 2:35:3 0 PM UTC SUSY STUART [id number] on February 09, 2025 2:35:30 PM UTC INPATIENT MEDICATIONS Status RXNORM [facility] Medication Dose Route Frequency Rat e Quantity Dates Indication Dispense Data Comments Physician Updated By Discont inued 488744 0314 8011 704 LACTATED RINGERS SOLN 1000. 0 ML INTRAV ENOUS ONE TIME ONLY (PACU) 25.0 ML/HR Start: [facility] 2024 6:35:0 0 PM UTC End: [facility] 2024 2:35:3 0 PM UTC RAZ FABIOLA [id number] on February 10, 2025 5:25:00 AM UTC Discont inued 4831414 0040 9117 630 meperidine (DEMEROL) 25 MG/ML SOLN 12.5 MG INTRAV ENOUS NEEDED (PACU) Start: [facility] 2024 6:35:0 0 PM UTC End: [facility] 2024 2:35:3 0 PM UTC RAZ FABIOLA [id number] on February 10, 2025 5:25:00 AM UTC Discont inued 9965038 0040 9117 630 meperidine (DEMEROL) 25 MG/ML SOLN 25.0 MG INTRAV ENOUS NEEDED (PACU) Start: [facility] 2024 6:35:0 0 PM UTC End: [facility] 2024 2:35:3 0 PM UTC RAZ FABIOLA [id number] on February 10, 2025 5:25:00 AM UTC Discont inued 5573946 0064 1624 725 fentaNYL (SUBLIMAZE) VIAL 50 MGC/ML SOLN 25.0 MCG INTRAV ENOUS EVERY 5 MINUTES NEEDED (PACU) Start: [facility] 2024 6:35:0 0 PM UTC End: [facility] 2024 2:35:3 0 PM UTC RAZ FABIOLA [id number] on February 10, 2025 5:25:00 AM UTC Discont inued 3596723 0064 1624 725 fentaNYL (SUBLIMAZE) VIAL 50 MGC/ML SOLN 50.0 MCG INTRAV ENOUS EVERY 5 MINUTES NEEDED (PACU) Start: [facility] 2024 6:35:0 0 PM UTC End: [facility] 2024 2:35:3 0 PM UTC RAZ FABIOLA [id number] on February 10, 2025 5:25:00 AM UTC Discont inued 0296595 0615 9426 401 HYDROmorpho ne (DILAUDID) 0.5 MG/0.5ML SOLN 0.5 MG INTRAV ENOUS EVERY 10 MINUTES NEEDED (PACU) Start: [facility] 2024 6:35:0 0 PM UTC End: [facility] 2024 2:35:3 0 PM UTC RAZ FABIOLA [id number] on February 10, 2025 5:25:00 AM UTC Discont inued 1410675 5510 9128 331 HYDROmorpho ne (DILAUDID) 1 MG/ML SOLN 1.0 MG INTRAV ENOUS EVERY 10 MINUTES NEEDED (PACU) Start: [facility] 2024 6:35:0 0 PM UTC End: [facility] 2024 2:35:3 0 PM UTC RAZ FABIOLA [id number] on February 10, 2025 5:25:00 AM UTC Discont inued 2089866 3039 5613 000 ondansetron (ZOFRAN) INJ 4 MG/2 ML SOLN 4.0 MG INTRAV ENOUS NEEDED (PACU) Start: [facility] 2024 6:35:0 0 PM UTC End: [facility] 2024 2:35:3 0 PM UTC RAZ FABIOLA [id number] on February 10, 2025 5:25:00 AM UTC Discont inued 2762985 0051 7970 201 droperidol (INAPSINE) 2.5 MG/ML SOLN 0.625 MG INTRAV ENOUS NEEDED (PACU) Start: [facility] 2024 6:35:0 0 PM UTC End: [facility] 2024 2:35:3 0 PM UTC RAZ FABIOLA [id number] on February 10, 2025 5:25:00 AM UTC Discont inued 4707684 1125 3041 112 midazolam (VERSED) 2 MG/2 ML SOLN 1.0 MG INTRAV ENOUS EVERY FIVE MINUTES NEEDED Start: [facility] 2024 6:35:0 0 PM UTC End: [facility] 2024 2:35:3 0 PM UTC RAZ FABIOLA [id number] on February 10, 2025 5:25:00 AM UTC Discont inued 0205423 0650 3041 112 midazolam (VERSED) 2 MG/2 ML SOLN 2.0 MG INTRAV ENOUS NEEDED (PACU) Start: [facility] 2024 6:35:0 0 PM UTC End: [facility] 2024 2:35:3 0 PM UTC RAZ FABIOLA [id number] on February 10, 2025 5:25:00 AM UTC Discont inued 608383 4012 1092 825 promethazin e (PHENERGAN) 25 MG/ML SOLN 12.5 MG INTRAV ENOUS NEEDED (PACU) Start: [facility] 2024 6:35:0 0 PM UTC End: [facility] 2024 2:35:3 0 PM UTC RAZ FABIOLA [id number] on February 10, 2025 5:25:00 AM UTC Discont inued XXXX XXX0 011 promethazin e (PHENERGAN) 12.5 MG GEL 12.5 MG TOPICA L NEEDED (PACU) Start: 2024 6:35:0 0 PM UTC End: [facility]2024 2:35:3 0 PM UTC RAZ FABIOLA [id number] on February 10, 2025 5:25:00 AM UTC Discont inued 7902874 3253 7084 001 ceFAZolin (ANCEF) 2 GM SOLR 2.0 GM INTRAV ENOUS ONE TIME ADMINISTRA TION (UNSCHEDUL ED) Start: [facility] 2024 8:27:0 0 PM UTC End: [facility]2024 12:47: 50 PM UTC REJI SOW [id number] on February 09, 2025 12:47:00 PM UTC Discont inued 5095919 5957 3067 120 dexmedetomi dine (PRECEDEX) 80 MCG/20ML SOLN 80.0 MCG INTRAV ENOUS ONE TIME ONLY (SCHEDULED DOSE) Start: [facility] 2024 11:46: 00 AM UTC End: [facility] 2024 11:46: 00 AM UTC MUNISWAMY COLTEN K INTERFAC ED on February 09, 2025 11:45:00 AM UTC Discont inued 2257746 9625 9909 332 PACU - fentaNYL (SUBLIMAZE) 100 MCG/2ML SOLN 100.0 MCG INTRAV ENOUS ONE TIME ONLY (SCHEDULED DOSE) Start: [facility] 2024 11:46: 00 AM UTC End: [facility] 2024 11:46: 00 AM UTC MUNISWAMY COLTEN K INTERFAC ED on February 09, 2025 11:45:00 AM UTC Discont inued 685804 4221 3950 810 ketamine (KETALAR) 50 MG/ML SOLN 500.0 MG INTRAV ENOUS ONE TIME ONLY (SCHEDULED DOSE) Start: [facility] 2024 11:46: 00 AM UTC End: [facility] 2024 11:46: 00 AM UTC MUNISWAMY COLTEN K INTERFAC ED on February 09, 2025 11:45:00 AM UTC Discont inued 5236862 3799 5623 105 ceFAZolin (ANCEF) 2 GM SOLR 2.0 GM INTRAV ENOUS ONE TIME ONLY (SCHEDULED DOSE) Start: [facility] 2024 12:42: 00 PM UTC End: [facility] 2024 12:42: 00 PM UTC MUNISWAMY COLTEN K INTERFAC ED on February 09, 2025 12:42:00 PM UT SOCIAL HISTORY SOCIAL HISTORY - Smoking Status SNOMED-CT Social History Element Description Effective Dates Offered Cessation Comment Updated By [id number] Current Tobacco smoking status Never Smoked [id number] on February 02, 2025 8:42:20 PM UT SOCIAL HISTORY - Gender Sex: Female SOCIAL HISTORY - Status : status i nformation is not available Intention in Next Year: intention information is not available SOCIAL HISTORY - Assessments Code System Description Status Date Value of Assessment Updated By Comment Assessment Information is no t available SOCIAL HISTORY - [place] Affiliation [place] information is not av ailable SOCIAL HISTORY [...] value for each vital sign as of February 11, 2025 3:15:01 PM [facility] Loinc Code Vital Sign Activity Date Result Updated By 8302-2 Body height February 09, 2025 12:23:56 PM UT 167.64 cm (66.0 in) [id number] on February 09, 2025 12:23:56 PM [facility] 26254-9 Body mass index (BMI) [Ratio] February 09, 2025 12:23:56 PM UT 39.426 kg/m2 3140-1 Body Surface Area Derived From Formula February 09, 2025 12:23:56 PM UT 2.1776 m2 09033-7 Body weight Measured February 09, 2025 12:23:56 PM UT 110.8 kg (244.0 lb) [id number] on February 09, 2025 12:23:56 PM [facility] PEDIATRIC GROWTH CHART - VITAL SIGNS This section displays Head C ircumference Percentile, Weight for Length Percentile and BMI Percentile Loinc Code Pediatric Measure Age (Months) Result Updat ed By No Pediatric Growth Chart Pe rcentile Information Available. HEALTH CONCERNS Problems Concern Status Health Concern problem infor mation not available. Smoking Status Status Years Used Consumed packs p er day Health Concern smoking histo ry information not available. Family History Concern Status Health Concern family histor y information not available. ENCOUNTERS ENCOUNTER INFORMATION Reason for Visit PNS R KNEE X 2 LEADS Admission February 09, 2025 11:49:[address] [address] Discharge February 09, 2025 7:49:00 PM [facility] DISCHARGED TO HOME OR SELF CARE ENCOUNTER DIAGNOSES Notes information is not drew ilable. Code System Diagnosis Onset Date Diagnosis information is not available. ABSTRACT DIAGNOSES Code System Diagnosis Updated By Abatement Date G58.9 ICD10 MONONEUROPATHY, UNSPECIFIED [id number] on February 11, 2025 3:14:22 PM [facility] G58.9 ICD10 MONONEUROPATHY, UNSPECIFIED [id number] on February 11, 2025 3:14:22 PM [facility] R00.2 ICD10 PALPITATIONS [id number] on Nove mb5 3:14:22 PM UT E78.5 ICD10 HYPERLIPIDEMIA, UNSPECIFIED [id number] on February 11, 2025 3:14:22 PM UTC K21.9 ICD10 GASTRO-ESOPHAGEA L REFLUX DISEASE WITHOUT ESOPHAGITIS [id number] on February 11, 2025 3:14:22 PM UT E66.01 ICD10 MORBID (SEVERE) OBESITY DUE TO EXCESS CALORIES [id number] on February 11, 2025 3:14:22 PM UT Z68.41 ICD10 BODY MASS INDEX [BMI] 40.0-44.9, ADULT [id number] on February 11, 2025 3:14:22 PM UT K58.9 ICD10 IRRITABLE BOWEL SYNDROME, UNSPECIFIED [id number] on February 11, 2025 3:14:22 PM UT M79.7 ICD10 FIBROMYALGIA [id number] on [facility] 2024 3:14:22 PM UT M25.50 ICD10 PAIN IN UNSPECIFIED JOINT AA [id number] on February 11, 2025 3:14:22 PM UT G35.D ICD10 MULTIPLE SCLEROSIS, UNSPECIF IED [id number] on February 11, 2025 3:14:22 PM UT F32.A ICD10 DEPRESSION, UNSPECIFIED [id number] on February 11, 2025 3:14:22 PM UT F41.9 ICD10 ANXIETY DISORDER, UNSPECIFIE D [id number] on February 11, 2025 3:14:22 PM UT 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 [id number] on February 11, 2025 3:14:22 PM UT Z87.442 ICD10 PERSONAL HISTORY OF URINARY CALCULI [id number] on February 11, 2025 3:14:22 PM UT I12.9 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 4 CHRONIC KIDNEY DISEASE, OR UNSPECIFIED CHRONIC KIDNEY DISEASE [id number] on February 11, 2025 3:14:22 PM UT N18.9 ICD10 CHRONIC KIDNEY D ISEASE, UNSPECIFIED [id number] on February 11, 2025 3:14:22 PM UT Z90.49 ICD10 ACQUIRED ABSENCE OF OTHER SPECIFIED PARTS OF DIGESTIVE TRACT [id number] on February 11, 2025 3:14:22 PM UT 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 [id number] on February 11, 2025 3:14:22 PM UT Z98.84 ICD10 BARIATRIC SURGERY STATUS [id number] on February 11, 2025 3:14:22 PM UT Z79.899 ICD10 OTHER ASSISTED (CURRENT) DRUG THERAPY [id number] on February 11, 2025 3:14:22 PM UT Z88.5 ICD10 ALLERGY STATUS T O NARCOTIC AGENT [id number] on February 11, 2025 3:14:22 PM UT Z88.8 ICD10 ALLERGY STATUS T O OTHER DRUGS, MEDICAMENTS AND BIOLOGICAL SUBSTANCES [id number] on February 11, 2025 3:14:22 PM [facility] CARE TEAM Care [place] Insulator Helper Role PROVIDER UNDEFINED Primary Care COLTEN CRUMP Primary Attending COLTEN CRUMP Admitting COLTEN CRUMP Surgeon COLTEN [facility] Referring [facility] DISCHARGE INSTRUCTION DISCHARGE INSTRUCTION Encounter [id number] Admit Date February 09, 2025 11: 49:00 AM [facility] Discharge Date February 09, 2025 7:4 9:00 PM [facility] PATIENT EDUCATION SUMMARY Patient/Visit Information: Patient Name: MAX MORRISSEY Diag: Attending Caregiver: SUSY Hudson Discharge Instruction Sheets Provided: Anesthesia, [facility] DC Instructions After BEFAST-Stroke Warning Signs Discharge Information Dr. 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 Role on Team Location Telecom Status Start Date End Keon e Updated By SUSY STUART Surgeon normal February 09, 2025 11:49:00 AM [facility] February 09, 2025 7:49:00 PM [place] [id number] on February 11, 2025 3:14:31 PM [facility] UNDEFINED PROVIDER PCP normal January 27, 2025 4:01:17 PM [facility] February 09, 2025 7:49:00 PM [facility] [id number] on February 11, 2025 3:14:31 PM [facility] SUSY STUART Referring normal January 27, 2025 4:01:17 PM [facility] February 09, 2025 7:49:00 PM [facility] [id number] on February 11, 2025 3:14:31 PM [facility] SUSY STUART Attending normal January 27, 2025 4:01:17 PM [facility] February 09, 2025 7:49:00 PM [facility] [id number] on February 11, 2025 3:14:31 PM [facility] SUSY STUART Admitting normal January 27, 2025 4:01:17 PM [facility] February 09, 2025 7:49:00 PM [facility] [id number] on February 11, 2025 3:14:31 PM [facility]
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
[2025-02-27 17:55] VITALS: BP 139/75; PULSE 71; O2SAT 97
[2025-02-27 17:56] VITALS: BP 139/75; PULSE 86; RESP 15; TEMP 36.7; O2SAT 96; BMI 40.3
--- OUTSIDE RECORDS SUMMARY | 2025-02-27 18:17 | XMS_ITS | Encounter Summary ---
Author Organization [facility] Address [address] [place] [address] Care Team Providers Care Car Sales Representative Name Role Phone Mily Alamo APRN Primary Care Provider Encounter Details Date Type Department Care Team ([facility] st Contact Info) Description 11/27/2024 Outside Procedure External Location [address] [place] [address] Magi Whitlock PA [address] [place] [address] Social History Tobacco Use Types Packs/Day Years Used Date Smoking Tobacco: Never Passive Smoke Exposure: Never Smokeless Tobacco: Never Alcohol Use Standard Drinks/Week Comments No 0 (1 standard drink = 0.6 oz pur e alcohol) Humiliation, Afraid, Rape, and Kick questionnair e Answer Date Recorded Within the last year, have y ou been afraid of your partner or ex-partner? No 07/20/2024 Within the last year, have y ou been humiliated or emotionally abused in other ways by your partner or ex-partner? No Within the last year, have y ou been kicked, hit, slapped, or otherwise physically hurt by your partner or ex-partner? No 07/20/2024 Within the last year, have y ou been raped or forced to have any kind of sexual activity by your partner or ex-partner? No 07/20/2024 PHQ-2 Answer Date Recorded Patient Health Questionnaire-2 Score 3 07/20/2024 Hunger Vital Sign Answer Date Recorded Within the past 12 months, y ou worried that your food would run out before you got the money to buy more. Never true 07/21/19 25 Within the past 12 months, t he food you bought just didn't last and you didn't have money to get more. Never true 07/20/2024 PRAPARE - Transportation Answer Date Re corded In the past 12 months, has l ack of transportation kept you from medical appointments or from getting medications? No 07/07 In the past 12 months, has l ack of transportation kept you from meetings, work, or from getting things needed for daily living? No 07/20/2024 Housing Stability Vital Sign Answer Keon e Recorded In the last 12 months, was t here a time when you were not able to pay the mortgage or rent on time? No 07/24/2023 In the last 12 months, how many places have you lived? 1 07/24/2023 In the last 12 months, was t here a time when you did not have a steady place to sleep or slept in a snf (including now)? No 07/24/2023 PHQ-9 Answer Date Recorded Patient Health Questionnaire-9 Score 9 07/20/2024 Housing Stability Vital Sign Answer Keon e Recorded In the last 12 months, was t here a time when you were not able to pay the mortgage or rent on time? No 07/20/2024 In the past 12 months, how m any times have you moved where you were living? 0 07/20/2024 [facility] were you homeless or living in a snf (including now)? No 07/20/2024 Utilities Answer Date Recorded In the past 12 months has th e [employer], gas, oil, or water [employer] threatened to shut off services in your home? No 07/20/2024 PHQ-2A Answer Date Recorded Patient Health Questionnaire-2 Score 0 01/23/2023 Comments No Sex and Gender Information Value Date Recorded Sex Assigned at Female 03/27/2021 2:29 AM EST Legal Sex Female 7:47 PM EDT Gender Identity Female 03/27/2021 2:29 AM EST Sexual Orientation Straight 03/27/2021 2: 29 AM EST documented as of this encounter Plan of Treatment Upcoming Encounters Date Type Department Care Team (Late st Contact Info) Description 05/03/2025 11:40 AM EST Office Visit Professional [facility] [address], [address] [place] [address] Skyler Mckeon MD [address] [facility] [address] [place] [address] documented as of this encounter Procedures Procedure Name Priority Date/Time Associated Diagnosis Comments MR SHOULDER RIGHT WO IV CONTRAST 11/27/2024 2:02 PM EDT documented in this encounter Results * MR Shoulder Right wo IV Contrast (11/27/2024 2:02 PM EDT) Anatomical Region Laterality Modality Upper Extremities Right Magnetic Reson ance 11/27/2024 2:02 PM EDT Narrative 11/27/2024 3:59 PM EDT [address] [address] Name: HAYLIE MORRISSEY Exam Date: 11/27/2024 : 1965 Age 59 years Gender: F Physician: MAGI WHITLOCK Facility: [facility] Facility HSV: Outpatient Exam: MRI SHOULDER W/O RIGHT PROCEDURE DESCRIPTION: MRI SHOULDER W/O RIGHT CLINICAL INDICATION: right shoulder pain arthritis of the acromioclavicular joint. TECHNIQUE: Multiplanar, multisequence MRI exam of the right shoulder was performed without IV contrast. Unless otherwise specified, incidental findings do not require dedicated imaging follow-up. COMPARISON: 08/28/2024 FINDINGS: There are moderate to severe degenerative changes of the acromioclavicular joint with superiorly and inferiorly projecting bony spurs and bone marrow edema. There are mild degenerative changes of the glenohumeral joint. There is fluid in the subacromial/subdeltoid bursa which is nonspecific but may represent underlying bursitis in the appropriate clinical setting. The long head of the biceps tendon is unremarkable. There is a partial-thickness undersurface tear of supraspinatus tendon at its insertion site on the greater tubercle. There is a suspected partial-thickness undersurface tear of infraspinatus tendon with calcification in the central aspect. The teres minor tendon is unremarkable. The subscapularis tendon is unremarkable. IMPRESSION: 1. 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 2. Partial-thickness undersurface tear of the supraspinatus tendon. 3. Suspected partial-thickness undersurface tear of the infraspinatus tendon with calcific tendinopathy. Correlate with physical examination. Orthopedic consultation may also be obtained. Electronically signed by: Jaziel Branham MD 11/27/2024 03:56 PM EDT Dictated By: JAZIEL BRANHAM Transcribed By: Transcribed On: 11/27/2024 3:56 PM Electronically signed by: JAZIEL BRANHAM 11/27/2024 Thank you for referring HAYLIE MORRISSEY to [facility]. Legally authenticated by CARROL Clayton 2024-11-27 15:56:09 Procedure Note Provider, [facility] 11/27/2024 [place] [address] Name: HAYLIE MORRISSEY Exam Date: 11/27/2024 : 1965 Age 59 years Gender: F Physician: MAGI WHITLOCK Facility: [facility] Facility HSV: Outpatient Exam: MRI SHOULDER W/O RIGHT PROCEDURE DESCRIPTION: MRI SHOULDER W/O RIGHT CLINICAL INDICATION: right shoulder pain arthritis of theacromioclavicular joint. TECHNIQUE: Multiplanar, multisequence MRI exam of the right shoulder was performed without IV contrast. Unless otherwise specified, incidentalfindings do not require dedicated imaging follow-up. COMPARISON: 08/28/2024 FINDINGS: There are moderate to severe degenerative changes of theacromioclavicular joint with superiorly and inferiorly projecting bony spurs and bonemarrow edema. There are mild degenerative changes of the glenohumeral joint.There is fluid in the subacromial/subdeltoid bursa which is nonspecific but may represent underlying bursitis in the appropriate clinical setting. Thelong head of the biceps tendon is unremarkable. There is a partial-thickness undersurface tear of supraspinatus tendon at its insertion site on thegreater tubercle. There is a suspected partial-thickness undersurface tear of infraspinatus tendon with calcification in the central aspect. The teresminor tendon is unremarkable. The subscapularis tendon is unremarkable. IMPRESSION: 1. 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 2. Partial-thickness undersurface tear of the supraspinatus tendon. 3. Suspected partial-thickness undersurface tear of the infraspinatustendon with calcific tendinopathy. Correlate with physical examination. Orthopedic consultation may also be obtained. Electronically signed by: Jaziel Branham MD 11/27/2024 03:56 PM EDT RP Dictated By: JAZIEL BRANHAM Transcribed By: Transcribed On: 11/27/2024 3:56 PM Electronically signed by: JAZIEL BRANHAM 11/27/2024 Thank you for referring HAYLIE MORRISSEY to [facility]. Legally authenticated by CARROL Clayton 2024-11-27 15:56:09 Magi CARPIO IMG MRI PROCEDURES Final Resul t documented in this encounter Visit Diagnoses Not on filedocumented in this encounter Additional Health Concerns Assessment Noted Time PHQ-9 Depression Total Score: 9 07/21/19 25 10:05 AM EDT A fall risk assessment has been complete d for the patient 10/26/2024 1:19 PM EDT A Body Mass Index follow-up plan has been documented for the patient 11/01/2024 5:02 PM EDT documented as of this encounter Care Teams Car Sales Representative Relationship Specialty Start Date End Date Mily Alamo APRN [address] [place] [address] PCP - General Family Medicine 09/25/21 documented as of this encounter
--- OUTSIDE RECORDS SUMMARY | 2025-02-27 18:17 | XMS_ITS | Encounter Summary ---
Author Organization [facility] Address [address] [place] [address] Care Team Providers Care Typing Section Chief Name Role Phone Jasmeet Milyartie Ro APRN Primary Care Provider [phone] Reason for Visit * Reason Onset Date Comments Medication Therapy Management 12/24/2024 Encounter Details Date Type Department Care Team (Late st Contact Info) Description 12/24/2024 Telephone [facility] [address] [place] [address] Sobeida Barnes, PharmD None None Medication Therapy Management Social History Tobacco Use Types Packs/Day Years [...] place to sleep or slept in a jail (including now)? No 07/24/2023 PHQ-9 Answer Date [...] any time in the [facility] were you homeless or living in a jail (including now)? No 07/20/2024 Utilities Answer Date Recorded In the past 12 months has th e [employer], gas, oil, or water company threatened to shut off services in your home? No 07/20/2024 PHQ-2A Answer Date Recorded Patient Health Questionnaire-2 Score 0 01/23/2023 Comments No Sex and Gender Information Value Date Recorded Sex Assigned at Female 03/27/2021 2:29 AM EST Legal Sex Female 7:47 PM EDT Gender Identity Female 03/27/2021 2:29 AM EST Sexual Orientation Straight 03/27/2021 2: 29 AM EST documented as of this encounter Miscellaneous Notes * Addendum Note - Sharon Rosenberg PharmD - 01/19/2025 10:46 AM EDT Addended by: SHARON ROSENBERG on: 01/19/2025 10:46 AM Modules accepted: Orders * Progress Notes - Sharon Rosenberg PharmD - 01/19/2025 10:43 AM EDT Clinical Pharmacist Note Subjective Patient referred by Mily Alamo APRN for follow up on statin therapy. Spoke with patient regarding recently started Pravastatin 40mg. Patient reports tolerating without issue and has not experienced any side effects. . Statin Benefit group: diabetes + age 40 - 75 Objective The 10-year ASCVD risk score (Yasmeen CENTENO, et al., 2019) is: 7.9% Values used to calculate the score: Age: 59 years Clincally relevant sex: Female Is Non- : No Diabetic: Yes Tobacco smoker: No Systolic Blood Pressure: 153 mmHg Is BP treated: Yes HDL Cholesterol: 66 mg/dL Total Cholesterol: 210 mg/dL Lab Results Component Value Date CHOL 210 (H) 07/20/2024 CHOL 222 (H) 03/08/2023 CHOL 184 11/28/2022 Lab Results Component Value Date HDL 66 07/20/2024 HDL 67 03/08/2023 HDL 70 11/28/2022 Lab Results Component Value Date LDLCALC 117 (H) 07/20/2024 LDLCALC 88.6 12/05/2021 LDLCALC 134 06/20/2020 Lab Results Component Value Date TRIG 155 (H) 07/20/2024 TRIG 291 (H) 03/08/2023 TRIG 254 (H) 11/28/2022 Lab Results Component Value Date GLUCOSE 98 10/26/2024 CALCIUM 9.1 10/26/2024 BUN 11 10/26/2024 CREATININE 0.69 10/26/2024 BCR 16 10/26/2024 NA 140 10/26/2024 K 4.2 10/26/2024 CL 108 (H) 10/26/2024 CO2 22 10/26/2024 CA 9.7 06/20/2020 PROT 7.0 05/16/2023 ALBUMIN 3.9 10/26/2024 ALKPHOS 123 10/26/2024 BILITOT 0.2 10/26/2024 AST 22 10/26/2024 ALT 18 10/26/2024 Problem List[1] Medications Ordered Prior to Encounter[2] Allergies[3] Assessment/Plan Problem List Items Addressed This Visit Endocrine/Metabolic Dyslipidemia - Primary Relevant Medications pravastatin (Pravachol) 40 MG tablet Type 2 diabetes mellitus without complications Relevant Medications pravastatin (Pravachol) 40 MG tablet Labs Needed: CMP, lipid panel (ordered/patient aware) Per Collaborative Statin Protocol* (see dosing table below), patient will need repeat labs (CMP, lipid panel) in ~3 months and follow up with PCP/provider within 6-9 months. Reviewed with patient, who was agreeable to plan. Confirmed patient has upcoming appointment/knows how to schedule upcoming appointment. Confirmed patient aware to get labs and knows walk-in for labs is acceptable but also okto call to schedule lab appointment if preferred. Statin* Initiating Dose Titration Dose Atorvastatin 20 mg 40 to 80 mg Pravastatin 40 mg 80 mg Rosuvastatin 10 mg 20 to 40 mg Simvastatin 20 mg 40 mg *Doses are intended for adult patients with normal organ function and are administered once daily; alternate doses should be considered for liver or kidney disease *Coadministration of drugs that alter CYP metabolism or drug transporters often requires statin dose limitations or avoidance Patient verbalized understanding of above plan and all questions were answered prior to end of call. Patient encouraged to call with any additional questions/concerns prior to next follow-up. Follow up: Labs 3 months after starting statin (around 04/05/2025). Clinical pharmacist follow up via phone in 3 months to discuss labs. Follow up with provider, Mily Alamo APRN, as scheduled. Sharon Puentes, StefanieD, BCACP Clinical Pharmacist, Primary Care [address] [address] [1] Patient Active Problem List Diagnosis Chronic back pain Fibromyalgia Chronic fatigue syndrome Depression Hormone replacement therapy (HRT) HTN (hypertension), benign Multiple sclerosis Seasonal allergies Morbid obesity with body mass index (BMI) of 40.0 or higher Hyperlipidemia, unspecified Type 2 diabetes mellitus without complications Hyperthyroidism Dyslipidemia Diverticulosis of large intestine without perforation or abscess without bleeding Umbilical hernia without obstruction or gangrene [2] Current Outpatient Medications on File Prior to Visit Medication Sig Dispense Refill buPROPion XL (Wellbutrin XL) 300 MG 24 hr tablet Take 1 tablet by mouth every morning. Do not crush, chew, or split. 90 tablet 2 Cholecalciferol 125 MCG (5000 UT) tablet dispersible Take 5,000 Units by mouth 1 (one) time each day. CRANBERRY-VITAMIN C PO Take 1 tablet by mouth 2 (two) times a day. Cranberry-Vitamin C-Probiotic (AZO Cranberry) 250-30 MG tablet 1 capsule twice a day by oral route. cyanocobalamin 2000 MCG tablet Take 1 tablet (2,000 mcg) by mouth 1 (one) time each day. desvenlafaxine (Pristiq) 50 MG 24 hr tablet Take 1 tablet by mouth daily. Do not crush, chew, or split. 90 tablet 2 estrogen, conjugated,-medroxyPROGESTERone (Prempro) 0.45-1.5 MG tablet Take 1 tablet by mouth daily. 84 tablet 0 fluticasone (Flonase) 50 MCG/ACT nasal spray Administer 2 sprays into each nostril 1 (one) time each day. 48 g 3 hydrOXYzine HCl (Atarax) 25 MG tablet Take 2 tablets by mouth at night as needed for itching (insomnia). 180 tablet 2 Kesimpta 20 MG/0.4ML solution auto-injector Inject 20 mg as directed every 30 (thirty) days. levocetirizine (Xyzal) 5 MG tablet Take 1 tablet by mouth daily. 90 tablet 2 meclizine (Antivert) 12.5 MG tablet Take 1 tablet (12.5 mg) by mouth 3 (three) times a day if needed for dizziness. 30 tablet 1 Melatonin 5 MG tablet tablet Take 2 tablets (10 mg) by mouth at night if needed for sleep. methocarbamol (Robaxin) 500 MG tablet Take 1 tablet (500 mg) by mouth 1 (one) time each day if needed for muscle spasms. metoprolol succinate XL (Toprol-XL) 50 MG 24 hr tablet Take 1 tablet (50 mg) by mouth 1 (one) time each day. Do not crush or chew. Multiple Vitamins-Minerals (DAILY MULTIVITAMIN PO) Take by mouth. oxybutynin (Ditropan) 5 MG tablet Take 1 tablet (5 mg) by mouth 2 (two) times a day. No current facility-administered medications on file prior to visit. [3] Allergies Allergen Reactions Codeine Hives and Rash Modafinil Hives and Rash Oxycodone-Acetaminophen Hives and Rash Atorvastatin Dizziness Reported dizziness and chest pain when she took the medication. Resolved when medication was stopped. Nsaids Other - please document in the comment field Not supposed to have due to hx of gastric bypass Other Other - please document in the comment field Not supposed to take CAPSULE medications due to hx of gastric bypass Rosuvastatin Dizziness Noted in chart allergic reaction as well as chest pain and dizziness. Resolved when medication was stopped. * Telephone Encounter - Sobeida Barnes PharmD - 01/11/2025 10:15 AM EDT Provider reached by Medication Therapy Management team. MT Platform: Medicaid Statin Gap Successful Intervention(s): Provider prescribed statin therapy Additional information: pravastatin initiated Sobeida Barnes PharmD [facility] MTM Team * Progress Notes - Sharon Rosenberg PharmD - 01/04/2025 10:59 AM EDT Clinical Pharmacist Note Subjective Patient referred by Mily Alamo APRN for statin initiation/titration. Spoke with patient regarding statin therapy, including risk/benefit profile, adverse effects, and patient's statin history. Following discussion patient agreeable to starting statin. Of note, patient reports history of dizziness and chest pain when taking rosuvastatin and atorvastatin in the past. States the symptoms resolved quickly after stopping the medication. Statin Benefit group: diabetes + age 40 - 75 Objective The 10-year ASCVD risk score (Yasmeen CENTENO, et al., 2019) is: 7.9% Values used to calculate the score: Age: 59 years Clincally relevant sex: Female Is Non- : No Diabetic: Yes Tobacco smoker: No Systolic Blood Pressure: 153 mmHg Is BP treated: Yes HDL Cholesterol: 66 mg/dL Total Cholesterol: 210 mg/dL Lab Results Component Value Date CHOL 210 (H) 07/20/2024 CHOL 222 (H) 03/08/2023 CHOL 184 11/28/2022 Lab Results Component Value Date HDL 66 07/20/2024 HDL 67 03/08/2023 HDL 70 11/28/2022 Lab Results Component Value Date LDLCALC 117 (H) 07/20/2024 LDLCALC 88.6 12/05/2021 LDLCALC 134 06/20/2020 Lab Results Component Value Date TRIG 155 (H) 07/20/2024 TRIG 291 (H) 03/08/2023 TRIG 254 (H) 11/28/2022 Lab Results Component Value Date GLUCOSE 98 10/26/2024 CALCIUM 9.1 10/26/2024 BUN 11 10/26/2024 CREATININE 0.69 10/26/2024 BCR 16 10/26/2024 NA 140 10/26/2024 K 4.2 10/26/2024 CL 108 (H) 10/26/2024 CO2 22 10/26/2024 CA 9.7 06/20/2020 PROT 7.0 05/16/2023 ALBUMIN 3.9 10/26/2024 ALKPHOS 123 10/26/2024 BILITOT 0.2 10/26/2024 AST 22 10/26/2024 ALT 18 10/26/2024 Problem List[1] Medications Ordered Prior to Encounter[2] Allergies[3] Assessment/Plan Problem List Items Addressed This Visit Endocrine/Metabolic Dyslipidemia - Primary Relevant Medications pravastatin (Pravachol) 40 MG tablet Type 2 diabetes mellitus without complications Relevant Medications pravastatin (Pravachol) 40 MG tablet Labs Needed: lipid panel in 3 months Per Collaborative Statin Protocol* (see dosing table below), will initiate/titrate moderate intensity statin therapy of Pravastatin 40mg with goal of intensifying to highest tolerated dose or pravastatin 80mg. Patient requests prescription be sent to Specialty Pharmacy. Statin* Initiating Dose Titration Dose Atorvastatin 20 mg 40 to 80 mg Pravastatin 40 mg 80 mg Rosuvastatin 10 mg 20 to 40 mg Simvastatin 20 mg 40 mg *Doses are intended for adult patients with normal organ function and are administered once daily; alternate doses should be considered for liver or kidney disease *Coadministration of drugs that alter CYP metabolism or drug transporters often requires statin dose limitations or avoidance Patient verbalized understanding of above plan and all questions were answered prior to end of call. Patient encouraged to call with any additional questions/concerns prior to next follow-up. Follow up: Labs in 3 months. Clinical pharmacist follow up via phone in 2-4 weeks. Follow up with provider, Mily Alamo APRN in 6-9 months. Sharon Puentes, PharmD, BCACP Clinical Pharmacist, Primary Care [facility] [address] [facility] [address] [1] Patient Active Problem List Diagnosis Chronic back pain Fibromyalgia Chronic fatigue syndrome Depression Hormone replacement therapy (HRT) HTN (hypertension), benign Multiple sclerosis (CMS/HCC) Seasonal allergies Morbid obesity with body mass index (BMI) of 40.0 or higher (CMS/HCC) Hyperlipidemia, unspecified Type 2 diabetes mellitus without complications Hyperthyroidism Dyslipidemia Diverticulosis of large intestine without perforation or abscess without bleeding Umbilical hernia without obstruction or gangrene [2] Current Outpatient Medications on File Prior to Visit Medication Sig Dispense Refill buPROPion XL (Wellbutrin XL) 300 MG 24 hr tablet Take 1 tablet by mouth every morning. Do not crush, chew, or split. 90 tablet 2 Cholecalciferol 125 MCG (5000 UT) tablet dispersible Take 5,000 Units by mouth 1 (one) time each day. CRANBERRY-VITAMIN C PO Take 1 tablet by mouth 2 (two) times a day. Cranberry-Vitamin C-Probiotic (AZO Cranberry) 250-30 MG tablet 1 capsule twice a day by oral route. cyanocobalamin 2000 MCG tablet Take 1 tablet (2,000 mcg) by mouth 1 (one) time each day. desvenlafaxine (Pristiq) 50 MG 24 hr tablet Take 1 tablet by mouth daily. Do not crush, chew, or split. 90 tablet 2 estrogen, conjugated,-medroxyPROGESTERone (Prempro) 0.45-1.5 MG tablet Take 1 tablet by mouth daily. 84 tablet 0 fluticasone (Flonase) 50 MCG/ACT nasal spray Administer 2 sprays into each nostril 1 (one) time each day. 48 g 3 hydrOXYzine HCl (Atarax) 25 MG tablet Take 2 tablets by mouth at night as needed for itching (insomnia). 180 tablet 2 Kesimpta 20 MG/0.4ML solution auto-injector Inject 20 mg as directed every 30 (thirty) days. levocetirizine (Xyzal) 5 MG tablet Take 1 tablet by mouth daily. 90 tablet 2 meclizine (Antivert) 12.5 MG tablet Take 1 tablet (12.5 mg) by mouth 3 (three) times a day if needed for dizziness. 30 tablet 1 Melatonin 5 MG tablet tablet Take 2 tablets (10 mg) by mouth at night if needed for sleep. methocarbamol (Robaxin) 500 MG tablet Take 1 tablet (500 mg) by mouth 1 (one) time each day if needed for muscle spasms. metoprolol succinate XL (Toprol-XL) 50 MG 24 hr tablet Take 1 tablet (50 mg) by mouth 1 (one) time each day. Do not crush or chew. Multiple Vitamins-Minerals (DAILY MULTIVITAMIN PO) Take by mouth. oxybutynin (Ditropan) 5 MG tablet Take 1 tablet (5 mg) by mouth 2 (two) times a day. No current facility-administered medications on file prior to visit. [3] Allergies Allergen Reactions Codeine Hives and Rash Modafinil Hives and Rash Oxycodone-Acetaminophen Hives and Rash Atorvastatin Dizziness Reported dizziness and chest pain when she took the medication. Resolved when medication was stopped. Nsaids Other - please document in the comment field Not supposed to have due to hx of gastric bypass Other Other - please document in the comment field Not supposed to take CAPSULE medications due to hx of gastric bypass Rosuvastatin Dizziness Noted in chart allergic reaction as well as chest pain and dizziness. Resolved when medication was stopped. * Telephone Encounter - Sobeida Barnes PharmD - 12/24/2024 3:03 PM EDT Patient eligible for statin therapy per 2019 ACC/AHA guidelines. Patient source: Medicaid patient list Statin Benefit Group: Age 40-75 with diagnosis of diabetes, regardless of LDL and estimated 10-yearASCVD risk score Most recent LDL: 117 mg/dL on 07/20/24 Previous statin(s) patient has tried and adverse events: Rosuvastatin- allergic reaction noted in chart as well as CP and dizziness Recommended interventions:Trial with a different statin Additional info: If statin therapy is appropriate, please respond to this message and the clinic pharmacist can provide outreach as part of the Collaborative Statin Workflow. Thank you! Sobeida Barnes, PharmD documented in this encounter Plan of Treatment Upcoming Encounters Date Type Department Care Team (Late st Contact Info) Description 05/03/2025 11:40 AM EST Office Visit [facility] [address], [address] [place] [address] Skyler Mckeon MD [address] [facility] [address] [place] [address] Scheduled Orders Name Type Priority Associated Diagnoses Orde r Schedule Lipid panel Lab Routine Dyslipidemia Type 2 diabetes mellitus without complication, without long-term current use of insulin Expected: 04/05/2025 (Approximate), Expires: 07/23/2026 Comprehensive metabolic panel Lab Routine Dyslipidemia Type 2 diabetes mellitus without complication, without long-term current use of insulin Expected: 04/05/2025 (Approximate), Expires: 07/23/2026 documented as of this encounter Visit Diagnoses Diagnosis Dyslipidemia- Primary Other and unspecified hyperlipidemia Type 2 diabetes mellitus without complication, without long-term current use of insulin documented in this encounter Additional Health Concerns Assessment Noted Time PHQ-9 Depression Total Score: 9 07/21/19 25 10:05 AM EDT A fall risk assessment has been complete d for the patient 10/26/2024 1:19 PM EDT A Body Mass Index follow-up plan has been documented for the patient 11/01/2024 5:02 PM EDT documented as of this encounter Care Teams Typing Section Chief Relationship Specialty Start Date End Date Mily Alamo APRN [address] [place] [id number] PCP - General Family Medicine 09/25/21 documented as of this encounter
--- OUTSIDE RECORDS SUMMARY | 2025-02-27 18:17 | XMS_ITS | Encounter Summary ---
Author Organization [facility] Address [address] [place] [address] Care Team Providers Care Safety Belt Installer Name Role Phone Mily Alamo APRN Primary Care Provider [phone] Encounter Details Date Type Department Care Team (Latest Contact Info) Description 01/28/2025 Travel Social History Tobacco Use Types Packs/Day Years [...] place to sleep or slept in a mcc (including now)? No 07/24/2023 PHQ-9 Answer Date [...] any time in the past 12 m [facility], were you homeless or living in a mcc (including now)? No 07/20/2024 Utilities Answer Date Recorded In the past 12 months has th e electric, gas, oil, or water company threatened to [...] Description 05/03/2025 11:40 AM EST Office Visit [facility] [address], [address] [place] [address] Skyler Mckeon MD [address] [facility] [address] [place] [id number] documented as of this encounter Visit Diagnoses Not on filedocumented [...] documented as of this encounter Care Teams Safety Belt Installer Relationship Specialty Start Date End Date Mily Alamo APRN [address] [place] [phone] PCP - General Family Medicine 09/25/21 documented as of this encounter
--- NOTE | 2025-02-27 18:18 | XR_ITS ---
PROCEDURE INFORMATION: Exam: XR Left Ankle Exam date and time: 02/27/2025 7:09 PM Age: 59 years old Clinical indication: Pain; Ankle; Left; Additional info: Twisted lateral pain TECHNIQUE: Imaging protocol: Radiologic exam of the left ankle. Views: 1 or 2 views. Total images: 2 COMPARISON: CR XR FOOT LT MIN 3V 02/27/2025 7:09 PM FINDINGS: Bones/joints: No acute fracture, joint dislocation, or joint effusion. Maintained ankle mortise. No concerning bone lesions. Calcaneal enthesophytes. Soft tissues: Unremarkable soft tissues. IMPRESSION: 1. Negative left ankle. 2. Calcaneal enthesophytes.
--- NOTE | 2025-02-27 18:18 | XR_ITS ---
PROCEDURE INFORMATION: Exam: XR Left Foot Exam date and time: 02/27/2025 7:09 PM Age: 59 years old Clinical indication: Other: Peroneal tendon pain; Additional info: Twisted L foot, peroneal tendon pain TECHNIQUE: Imaging protocol: Radiologic exam of the left foot. Views: 3 or more views. Total images: 3 COMPARISON: CR XR ANKLE LT 2V 02/27/2025 7:09 PM FINDINGS: Bones/joints: No acute fracture or joint dislocation. Mild degenerative change 1st MTP joint. No concerning bone lesions. Calcaneal enthesophyte at the insertion of the Achilles tendon and plantar fascia. Soft tissues: Unremarkable soft tissues. IMPRESSION: Negative left foot.
--- OUTSIDE RECORDS SUMMARY | 2025-02-27 18:18 | XMS_ITS | Encounter Summary ---
Author Organization [facility] Address [address] [place] [address] Care Team Providers Care Instrument Setter Name Role Phone Jasmeet Milyartie Ro APRN Primary Care Provider [phone] Encounter Details Date Type Department Care Team ([facility] st Contact Info) Description 08/30/2023 Outside Procedure External Location [address] [place] [address] Sim Brooks PA [address] [id number] Social History Tobacco Use Types Packs/Day Years Used Date Smoking Tobacco: Never Smokeless Tobacco: Never Alcohol Use Standard Drinks/Week Comments No 0 (1 standard drink = 0.6 oz pur e alcohol) Humiliation, Afraid, Rape, and Kick questionnair e Answer Date Recorded Within the last year, have y ou been afraid of your partner or ex-partner? No 07/24/2023 Within the last year, have y ou been humiliated or emotionally abused in other ways by your partner or ex-partner? No Within the last year, have y ou been kicked, hit, slapped, or otherwise physically hurt by your partner or ex-partner? No 07/24/2023 Within the last year, have y ou been raped or forced to have any kind of sexual activity by your partner or ex-partner? No 07/24/2023 PHQ-2 Answer Date Recorded Patient Health Questionnaire-2 Score 0 01/23/2023 Hunger Vital Sign Answer Date Recorded Within the past 12 months, y ou worried that your food would run out before you got the money to buy more. Never true 07/24/19 24 Within the past 12 months, t he food you bought just didn't last and you didn't have money to get more. Never true 07/24/2023 PRAPARE - Transportation Answer Date Re corded In the past 12 months, has l ack of transportation kept you from medical appointments or from getting medications? No 07/07 In the past 12 months, has l ack of transportation kept you from meetings, work, or from getting things needed for daily living? No 07/24/2023 Housing Stability Vital Sign Answer Keon e [...] place to sleep or slept in a residential (including now)? No 07/24/2023 PHQ-9 Answer Date Recorded Patient Health Questionnaire-9 Score 18 07/24/2022 Utilities Answer Date Recorded In the past 12 months has th e electric, gas, oil, or water company threatened to shut off services in your home? No 07/24/2023 PHQ-2A Answer Date Recorded Patient Health Questionnaire-2 [...] 05/03/2025 11:40 AM EST Office Visit [facility] [address], [address] [place] [address] Skyler Mckeon MD [address] [facility] [address] [place] [address] documented as of this encounter Procedures Procedure Name Priority Date/Time Associated Diagnosis Comments XR SACROILIAC JOINTS 3+ VIEWS 08/30/2023 10:01 AM EDT documented in this encounter Results * XR Sacroiliac Joints 3+ Views (08/30/2023 10:01 AM EDT) Anatomical Region Laterality Modality Body, Spine, Pelvis Digital Radi ography 08/30/2023 10:0 1 AM EDT Narrative 08/30/2023 12:16 [id number] [id number] Name: MAX MORRISSEY Exam Date: 08/30/2023 : 1965 Age 57 years Gender: F Physician: SIM BROOKS Facility: [facility] Facility HSV: Outpatient Exam: SACROILIAC JOINTS MIN VIEWS SI joints 2 VIEW HISTORY: Pain. FINDINGS: No evidence of an acute, displaced fracture or dislocation of the visualized bony architecture. Mild degenerative changes of the bilateral SI joints, otherwise symmetric and patent. IMPRESSION: No acute bony abnormality Dictated By: Giovanna Lindsay Transcribed By: Giovanna Santos Transcribed On: 08/30/2023 12:05 PM Electronically signed by: Giovanna Lindsay 08/30/2023 Thank you for referring MAX MORRISSEY to [facility]. Legally authenticated by NAYELI WALTERS 2023-08-30 12:05:24 Procedure Note Provider, [facility] [place] - 08/30/2023 [place] [id number] Name: MAX MORRISSEY Exam Date: 08/30/2023 : 1965 Age 57 years Gender: F Physician: SIM BROOKS Facility: [facility] Facility HSV: Outpatient Exam: SACROILIAC JOINTS MIN VIEWS SI joints 2 VIEW HISTORY: Pain. FINDINGS: No evidence of an acute, displaced fracture or dislocation ofthe visualized bony architecture. Mild degenerative changes of the bilateral SI joints, otherwise symmetricand patent. IMPRESSION: No acute bony abnormality Dictated By: Giovanna Lindsay Transcribed By: Giovanna Santos Transcribed On: 08/30/2023 12:05 PM Electronically signed by: Giovanna Lindsay 08/30/2023 Thank you for referring MAX MORRISSEY to [facility]. Legally authenticated by NAYELI WALTERS 2023-08-30 12:05:24 us Sim CARPIO IMG XR PROCEDURES Final Result documented in this encounter Visit Diagnoses Not on filedocumented in this encounter Additional Health Concerns Assessment Noted Time PHQ-9 Depression Total Score: 18 023 1:15 PM EDT A fall risk assessment has been complete d for the patient 10/23/2022 11:45 AM EDT A Body Mass Index follow-up plan has been documented for the patient 05/22/2023 9:09 PM EST documented as of this encounter Care Teams Instrument Setter Relationship Specialty Start Date End Date Mily Alamo APRN [address] [place] [id number] PCP - General Family Medicine 09/25/21 documented as of this encounter
--- OUTSIDE RECORDS SUMMARY | 2025-02-27 18:18 | XMS_ITS | Encounter Summary ---
Author Organization Healthcare Address [address] [place] [address] Care Team Providers Care Network Solutions Architect Name Role Phone Mily Alamo APRN Primary Care Provider [phone] Encounter Details Date Type Department Care Team (Late st Contact Info) Description 03/08/2023 Outside Procedure External Location [address] [place] [address] Chase Lee APRN [address] [facility] [address] [place], [place] [id number] Social History Tobacco Use Types Packs/Day Years Used Date Smoking Tobacco: Never Smokeless Tobacco: Never Alcohol Use Standard Drinks/Week Comments No 0 (1 standard drink = 0.6 oz pur e alcohol) PHQ-2 Answer Date Recorded Patient Health Questionnaire-2 Score 0 01/23/2023 PHQ-9 Answer Date Recorded Patient Health Questionnaire-9 Score 18 07/24/2022 PHQ-2A Answer Date Recorded Patient Health Questionnaire-2 [...] Description 05/03/2025 11:40 AM EST Office Visit [facility] [address], [address] [place] [address] Skyler Mckeon MD [address] [facility] [address] [place] [address] documented as of this encounter Procedures Procedure Name Priority Date/Time Associated Diagnosis Comments XR CHEST 2 VIEWS 03/08/2023 3:22 PM EST documented in this encounter Results * XR Chest 2 Views (03/08/2023 3:22 PM EST) Anatomical Region Laterality Modality Chest Digital Radiogra phy 03/08/2023 3:22 PM EST Narrative 03/08/2023 4:47 [place] [address] Name: HAYLIE MORRISSEY Exam Date: 03/08/2023 : 1965 Age 57 Gender: F Physician: CHASE LEE Facility: [facility] Facility HSV: Outpatient Exam: CHEST 2 VIEWS TWO VIEW CHEST HISTORY: Preoperative for gastric bypass. COMPARISON: July 18, 2011. FINDINGS: The cardiac silhouette is stable in size. The mediastinum is unremarkable. The lungs are clear. There is no pneumothorax. Osseous structures demonstrate no acute abnormality. IMPRESSION: No acute cardiopulmonary process. The films were reviewed, interpreted, and dictated by Dr. Saunders Transcribed by Lainey Tejada PA-C Dictated By: CHAZ SAUNDERS Transcribed By: Chaz Saunders Transcribed On: 03/08/2023 4:33 PM Electronically signed by: CHAZ SAUNDERS 03/08/2023 Thank you for referring HAYLIE MORRISSEY to [facility]. Legally authenticated by POPE CHAZ Ro 2023-03-08 16:33:53 Procedure Note Provider, [facility] - 03/08/2023 [place] [address] Name: HAYLIE MORRISSEY Exam Date: 03/08/2023 : 1965 Age 57 Gender: F Physician: CHASE LEE Facility: [facility] Facility HSV: Outpatient Exam: CHEST 2 VIEWS TWO VIEW CHEST HISTORY: Preoperative for gastric bypass. COMPARISON: July 18, 2011. FINDINGS: The cardiac silhouette is stable in size. The mediastinum is unremarkable. The lungs are clear. There is no pneumothorax. Osseous structures demonstrate no acute abnormality. IMPRESSION: No acute cardiopulmonary process. The films were reviewed, interpreted, and dictated by Dr. Saunders Transcribed by Lainey Tejada PA-C Dictated By: CHAZ SAUNDERS Transcribed By: Chaz Saunders Transcribed On: 03/08/2023 4:33 PM Electronically signed by: CHAZ SAUNDERS 03/08/2023 Thank you for referring HAYLIE MORRISSEY to [facility]. Legally authenticated by POPE CHAZ Ro 2023-03-08 16:33:53 Chase Lee APRN IMG XR PROCEDURES Final R esult documented in this encounter Visit Diagnoses Not on filedocumented in this encounter Additional Health Concerns Assessment Noted Time PHQ-9 Depression Total Score: 18 023 1:15 PM EDT A fall risk assessment has been complete d for the patient 10/23/2022 11:45 AM EDT A Body Mass Index follow-up plan has been documented for the patient 01/23/2023 7:12 PM EDT documented as of this encounter Care Teams Network Solutions Architect Relationship Specialty Start Date End Date Mily Alamo APRN [address] [place] [id number] PCP - General Family Medicine 09/25/21 documented as of this encounter
--- OUTSIDE RECORDS SUMMARY | 2025-02-27 18:18 | XMS_ITS | Encounter Summary ---
Author Organization [facility] Address [address] [place] [address] Care Team Providers Care Ornament Stapler Name Role Phone Tima Bueno MD Primary Care Provider [phone] Silvia Neal LPN Unavailable Unavailab Silvia Kay LPN Unavailable Unavailab Mily Langford APRN Primary Care Provider [phone] Encounter Details Date Type Department Care Team (Late st Contact Info) Description 05/02/2021 Outside Procedure External Location [address] [place] [address] Amanda Valentin APRN [address] [place] [address] Social History Tobacco Use Types Packs/Day Years Used Date Smoking Tobacco: Never Smokeless Tobacco: Never Alcohol Use Standard Drinks/Week Comments No 0 (1 standard drink = 0.6 oz pur e alcohol) PHQ-2 Answer Date Recorded PHQ-2 Score 4 03/27/2021 Comments Unknown Sex and Gender Information Value Date Recorded Sex Assigned at Female 03/27/2021 2:29 AM EST Legal Sex Female 7:47 PM EDT Gender Identity Female 03/27/2021 2:29 AM EST Sexual Orientation Straight 03/27/2021 2: 29 AM EST COVID-19 Exposure Response Date Recorded In the last month, have you been in contact with someone who was confirmed or suspected to have Coronavirus / COVID-19? Unable to assess 05/02/2021 12:00 PM EST documented as of this encounter Plan of Treatment Upcoming Encounters Date Type Department Care Team (Late st Contact Info) Description 05/03/2025 11:40 AM EST Office Visit [facility] [facility] [address], [address] [place] [address] Skyler Mckeon MD [address] [facility] [address] [place] [address] documented as of this encounter Procedures Procedure Name Priority Date/Time Associated Diagnosis Comments CT ABDOMEN PELVIS W IV CONTRAST 05/02/2021 3:41 PM EST documented in this encounter Results * CT Abdomen Pelvis w IV Contrast (05/02/2021 3:41 PM EST) Anatomical Region Laterality Modality Abdomen, Pelvis Computed Tomogra phy 05/02/2021 3:41 PM EST Narrative 05/02/2021 4:21 [place] [address] Name: MAX MORRISSEY Exam Date: 05/02/2021 : 1965 Age 55 Gender: F Physician: AMANDA VALENTIN Facility: [facility] Facility HSV: Outpatient Exam: CT ABD PEL W/ (IV ORAL) CT ABDOMEN AND PELVIS WITH CONTRAST TECHNIQUE: Oral and IV contrast enhanced exam HISTORY: Right lower quadrant pain COMPARISON: 08/07/2011. FINDINGS: ABDOMEN: Mild fatty infiltration of liver is present. Tiny nonobstructing bilateral renal stones are seen. Remaining solid organs are unremarkable. Gallbladder has a normal appearance. No bowel obstruction is present. Central mesenteric vessels are patent. Appendix is normal. PELVIS: Uterus and ovaries are unremarkable. Pelvic bowel loops have a normal appearance. There is no free fluid or pelvic mass. IMPRESSION: No acute findings This study was performed using automated techniques to achieve radiation exposure as low as reasonably achievable Dictated By: NYLA CHILDRESS Transcribed By: Sanjay Childress Transcribed On: 05/02/2021 4:10 PM Electronically signed by: NYLA CHILDRESS 05/02/2021 Thank you for referring MAX MORRISSEY to [facility]. Legally authenticated by MONROE SEAY 2021-05-02 16:10:31 Procedure Note Provider, [facility] [place] - 05/02/2021 [facility] [address] [place] [address] Name: MAX MORRISSEY Exam Date: 05/02/2021 : 1965 Age 55 Gender: F Physician: AMANDA VALENTIN Facility: [facility] Facility HSV: Outpatient Exam: CT ABD PEL W/ (IV ORAL) CT ABDOMEN AND PELVIS WITH CONTRAST TECHNIQUE: Oral and IV contrast enhanced exam HISTORY: Right lower quadrant pain COMPARISON: 08/07/2011. FINDINGS: ABDOMEN: Mild fatty infiltration of liver is present. Tinynonobstructing bilateral renal stones are seen. Remaining solid organs areunremarkable. Gallbladder has a normal appearance. No bowel obstruction is present.Central mesenteric vessels are patent. Appendix is normal. PELVIS: Uterus and ovaries are unremarkable. Pelvic bowel loops have anormal appearance. There is no free fluid or pelvic mass. IMPRESSION: No acute findings This study was performed using automated techniques to achieve radiation exposure as low as reasonably achievable Dictated By: NYLA CHILDRESS Transcribed By: Sanjay Childress Transcribed On: 05/02/2021 4:10 PM Electronically signed by: NYLA CHILDRESS 05/02/2021 Thank you for referring MAX MORRISSEY to [facility]. Legally authenticated by MONROE SEAY 2021-05-02 16:10:31 us Amanda Valentin NEUROLOGY TECH IMG CT PROCEDURES Final Resul t documented in this encounter Visit Diagnoses Not on filedocumented in this encounter Additional Health Concerns Assessment Noted Time PHQ-9 Depression Total Score: 13 07/19/2 021 3:25 PM EDT A fall risk assessment has been complete d for the patient 12/27/2020 10:17 AM EDT documented as of this encounter Care Teams Ornament Stapler Relationship Specialty Start Date End Date Tima Bueno MD [address] [place] [address] PCP - General 08/19/20 09/24/21 Mily Alamo APRN [address] [place] [address] PCP - General Family Medicine 09/25/21 Silvia Neal LPN [employer] [place] [address] None Registered Nurse Family Medicine 08/08/21 08/08/21 Silvia Neal LPN [employer] [place] [address] None TCM Nurse Family Medicine 08/09/21 09/06/21 documented as of this encounter
--- OUTSIDE RECORDS SUMMARY | 2025-02-27 18:18 | XMS_ITS | Encounter Summary ---
Author Organization Healthcare Address [address] [place] [address] Care Team Providers Care Manager Technical Sales Name Role Phone Tima Bueno MD Primary Care Provider [phone] Silvia Neal BRICK DROPPER Unavailable Unavailab Mily Langford CASINO BEVERAGE SERVER Primary Care Provider [phone] Reason for Visit * Reason Comments Med Refill Encounter Details Date Type Department Care Team (Late st Contact Info) Description 08/18/2021 Refill Family and Community Medicine [address] [place] [address] Tima Bueno MD [address] [place] [address] Fibromyalgia; Mild episode of recurrent major depressive disorder (CMS/HCC) Social History Tobacco Use Types Packs/Day Years [...] Exposure Response Date Recorded In the last 10 days, have yo u been in contact with someone who was confirmed or suspected to have Coronavirus/COVID-19? No / Unsure 07/25/2021 1:50 PM EDT documented as of this encounter Miscellaneous Notes * Telephone Encounter - Ira Salamanca - 08/21/2021 4:26 PM EDT Refill request does not meet protocol. Sending to clinic for review. Additional info: Patient cancelled upcoming appointment. Please review and refill if appropriate. Thanks documented in this encounter Plan of Treatment Upcoming Encounters Date Type Department Care Team (Late st Contact Info) Description 05/03/2025 11:40 AM EST Office Visit [facility] [place] [facility] [address], [address] [place] [address] Skyler Mckeon MD [address] [facility] [address] [place] [address] documented as of this encounter Visit Diagnoses Diagnosis Fibromyalgia Unspecified myalgia and myositis Mild episode of recurrent major depressive disorder (CMS/HCC) documented in this encounter Additional Health Concerns Assessment Noted Time PHQ-9 Depression Total Score: 13 021 3:25 PM EDT A fall risk assessment has been complete d for the patient 05/23/2021 11:01 AM EST documented as of this encounter Care Teams Manager Technical Sales Relationship Specialty Start Date End Date Tima Bueno MD [address] [place] [address] PCP - General 08/19/20 09/24/21 Mily Alamo APRN [address] [place] [address] PCP - General Family Medicine 09/25/21 Silvia Neal LPN [employer] [place] [address] None TCM Nurse Family Medicine 08/09/21 09/06/21 documented as of this encounter
--- OUTSIDE RECORDS SUMMARY | 2025-02-27 18:18 | XMS_ITS | Encounter Summary ---
Author Organization [facility] Address [address] [place] [address] Care Team Providers Care Psychologist Developmental Name Role Phone Tima Bueno MD Primary Care Provider [phone] Silvia Neal HARD METALS ENGRAVER HAND Unavailable Unavailab le Nitish Neali L HARD METALS ENGRAVER HAND Unavailable Unavailab Mily Langford APRN Primary Care Provider [phone] Reason for Visit * Reason Comments Med Refill Encounter Details Date Type Department Care Team (Late st Contact Info) Description 07/05/2021 Refill Family and Community Medicine [address] [place] [address] Tima Bueno MD [address] [place] [address] Lower abdominal pain Social History Tobacco Use Types Packs/Day Years [...] encounter Miscellaneous Notes * Telephone Encounter - Rm Lal MD - 07/06/2021 3:01 PM EDT Ok to provide 10tabs, follow up with pcp in 2 weeks * Telephone Encounter - Violet Jain - 07/06/2021 2:01 PM EDT Refill request does not meet protocol. Sending to clinic for review. Additional info: Note from 05/23 visit states to follow up in 1 month. 1 refill was given at beginning of June. Pt was a no show to 06/20 appt and no other appts are scheduled. documented in this encounter Plan of Treatment Upcoming Encounters Date Type Department Care Team (Late st Contact Info) Description 05/03/2025 11:40 AM EST Office Visit [facility] [address], [address] [place] [address] Skyler Mckeon MD [address] [facility] [address] [place] [address] documented as of this encounter Visit Diagnoses Diagnosis Lower abdominal pain Abdominal pain, other specified site documented in this encounter Additional Health Concerns Assessment Noted Time PHQ-9 Depression Total Score: 13 021 3:25 PM EDT A fall risk assessment has been complete d for the patient 05/23/2021 11:01 AM EST documented as of this encounter Care Teams Psychologist Developmental Relationship Specialty Start Date End Date Tima Bueno MD [address] [place] [address] PCP - General 08/19/20 09/24/21 Mily Alamo APRN [address] [place] [address] PCP - General Family Medicine 09/25/21 Silvia Neal LPN [employer] [place] [address] None Registered Nurse Family Medicine 08/08/21 08/08/21 Silvia Neal LPN VALUE-BASED TRANSFORMATION PROGRAM [place] [id number] None TCM Nurse Family Medicine 08/09/21 09/06/21 documented as of this encounter
--- OUTSIDE RECORDS SUMMARY | 2025-02-27 18:18 | XMS_ITS | Encounter Summary ---
Author Organization [facility] Address [address] [place] [place] [address] Care Team Providers Care Flatwork Folder Name Role Phone Jasmeet Milyartie Ro APRN Primary Care Provider [phone] Encounter Details Date Type Department Care Team ([facility] st Contact Info) Description 08/30/2023 Outside Procedure External Location [address] [place] [address] Sim Brooks PA [address] [id number] Social History Tobacco Use Types Packs/Day Years [...] place to sleep or slept in a group home (including now)? No 07/24/2023 PHQ-9 Answer Date [...] Care Clinic [address], [address] [place] [address] Skyler Mckeon MD [address] [facility] [address] [place] [address] documented as of this encounter Procedures Procedure Name Priority Date/Time Associated Diagnosis Comments XR LUMBAR SPINE 2 OR 3 VIEWS 08/30/2023 10:01 AM EDT documented in this encounter Results * XR Lumbar Spine 2 or 3 Views (08/30/2023 10:01 AM EDT) Anatomical Region Laterality Modality Spine, L-spine Digital Radiogra phy 08/30/2023 10:0 1 AM EDT Narrative 08/30/2023 12:18 [place] [address] Name: MAX MORRISSEY Exam Date: 08/30/2023 : 1965 Age 57 years Gender: F Physician: SIM BROOKS Facility: [facility] Facility HSV: Outpatient Exam: LUMBAR SPINE 2 TO 3V Lumbar spine 3 VIEW HISTORY: Pain. FINDINGS: Accentuated lumbar spine lordosis otherwise vertebral endplate alignment is preserved. [id number] multilevel degenerative disc disease. Moderate multilevel lumbar facet arthropathy. No acute fractures. IMPRESSION: No acute bony abnormality. Dictated By: Giovanna Lindsay Transcribed By: Giovanna Santos Transcribed On: 08/30/2023 12:07 PM Electronically signed by: Giovanna Lindsay 08/30/2023 Thank you for referring MAX MORRISSEY to [facility]. Legally authenticated by NAYELI WALTERS 2023-08-30 12:07:38 Procedure Note Provider, [facility] [place] - 08/30/2023 [place] [address] Name: MAX MORRISSEY Exam Date: 08/30/2023 : 1965 Age 57 years Gender: F Physician: SIM BROOKS Facility: [facility] Facility HSV: Outpatient Exam: LUMBAR SPINE 2 TO 3V Lumbar spine 3 VIEW HISTORY: Pain. FINDINGS: Accentuated lumbar spine lordosis otherwise vertebral endplate alignmentis preserved. [id number] multilevel degenerative disc disease.Moderate multilevel lumbar facet arthropathy. No acute fractures. IMPRESSION: No acute bony abnormality. Dictated By: Giovanna Lindsay Transcribed By: Giovanna Santos Transcribed On: 08/30/2023 12:07 PM Electronically signed by: Giovanna Lindsay 08/30/2023 Thank you for referring MAX MORRISSEY to [facility]. Legally authenticated by NAYELI WALTERS 2023-08-30 12:07:38 Sim CARPIO IMG XR PROCEDURES Final Result [...] documented as of this encounter Care Teams Flatwork Folder Relationship Specialty Start Date End Date Mily Alamo APRN [address] [place] [address] PCP - General Family Medicine 09/25/21 documented as of this encounter
--- OUTSIDE RECORDS SUMMARY | 2025-02-27 18:18 | XMS_ITS | Encounter Summary ---
Author Organization Healthcare Address [address] [place] [address] Care Team Providers Care Plate Cleaner Name Role Phone Jasmeet Mily Jia HASTINGS Primary Care Provider [phone] Encounter Details Date Type Department Care Team (Late Contact Info) Description 05/16/2023 Outside Procedure External Location [address] [place] [address] Provider, [facility] [place] Social History Tobacco Use Types Packs/Day Years [...] Encounters Date Type Department Care Team (Late Contact Info) Description 05/03/2025 11:40 AM EST Office Visit [facility] [address], [address] [place] [address] Skyler Mckeon MD [address] [facility] [address] [place] [address] documented as of this encounter Procedures Procedure Name Priority Date/Time Associated Diagnosis Comments CT ABDOMEN PELVIS W IV CONTRAST 05/16/2023 11:21 PM EST documented in this encounter Results * CT Abdomen Pelvis w IV Contrast (05/16/2023 11:21 PM EST) Anatomical Region Laterality Modality Abdomen, Pelvis Computed Tomogra phy 05/16/2023 11:2 1 PM EST Narrative 05/17/2023 1:46 [place] [address] Name: HAYLIE MORRISSEY Exam Date: 05/16/2023 : 1965 Age 57 Gender: F Physician: KATINA MORALEZ Facility: [facility] Facility HSV: Outpatient Exam: CT ABD PEL W/ (IV ORAL) FINAL REPORT TECHNIQUE: null CLINICAL HISTORY: Abd pain without fever, PT has gastric sleeve surg with bypass this past Saturday. nausea with vomiting COMPARISON: null FINDINGS: CT abdomen and pelvis with contrast Comparison: None Findings: The visualized cardiac apex demonstrates cardiomegaly. Circumferential mucosal thickening of the distal esophagus, finding could reflect longstanding reflux. Surgical changes of gastric bypass and gastric sleeve. No complication identified. Atherosclerosis of the abdominal aorta extending into the iliac vasculature. A small umbilical hernia which contains fat. Ill-defined hypoattenuation within the anterior margin of the left lobe of the liver likely representing focal hepatic steatosis. Hepatomegaly. Cholecystectomy. Atrophy of the pancreas with fatty infiltration. Multiple granulomas throughout the spleen. The bilateral adrenal glands are unremarkable. Kidneys without nephrolithiasis or hydronephrosis. The urinary bladder is partially underdistended. Atrophy of the uterus which is anteverted. No bowel obstruction, pneumoperitoneum, or pneumatosis. Scattered colonic diverticulosis without diverticulitis. Normal appendix. Some stranding within the subcutaneous fat overlying the mid ventral abdominal wall best visualized image 64 of series 2, nonspecific. No organized fluid collection within this region. Degenerative changes of the lumbar spine. IMPRESSION: IMPRESSION: 1. Surgical changes of gastric bypass and gastric sleeve. No complication. 2. Circumferential mucosal thickening of the distal esophagus, nonspecific finding could represent longstanding reflux. 3. Ill-defined hypoattenuation within the anterior margin of the left lobe of the liver likely representing focal hepatic steatosis. Hepatomegaly. 4. Scattered colonic diverticulosis without diverticulitis. Authenticated and [facility] Dictated By: Jaziel Ogden Transcribed By: Transcribed On: 05/17/2023 1:29 AM Electronically signed by: Jaziel Ogden 05/17/2023 Thank you for referring HAYLIE MORRISSEY to [facility]. Legally authenticated by MAXI REDMOND 2023-05-17 01:29:25 Procedure Note Provider, [facility] [place] - 05/17/2023 [place] [address] Name: HAYLIE MORRISSEY Exam Date: 05/16/2023 : 1965 Age 57 Gender: F Physician: KATINA MORALEZ Facility: [facility] Facility HSV: Outpatient Exam: CT ABD PEL W/ (IV ORAL) FINAL REPORT TECHNIQUE: null CLINICAL HISTORY: Abd pain without fever, PT has gastric sleeve surg with bypass this past Saturday. nausea with vomiting COMPARISON: null FINDINGS: CT abdomen and pelvis with contrast Comparison: None Findings: The visualized cardiac apex demonstrates cardiomegaly. Circumferential mucosal thickening of the distal esophagus, finding could reflect longstanding reflux. Surgical changes of gastric bypass and gastric sleeve. No complication identified. Atherosclerosis of the abdominal aorta extending into the iliac vasculature. A small umbilical hernia which contains fat. Ill-defined hypoattenuation within the anterior margin of the left lobe of the liver likely representing focal hepatic steatosis. Hepatomegaly. Cholecystectomy. Atrophy of the pancreas with fatty infiltration. Multiple granulomas throughout the spleen. The bilateral adrenal glands are unremarkable. Kidneys without nephrolithiasis or hydronephrosis. The urinary bladder is partially underdistended. Atrophy of the uterus which is anteverted. No bowel obstruction, pneumoperitoneum, or pneumatosis. Scattered colonic diverticulosis without diverticulitis. Normal appendix. Some stranding within the subcutaneous fat overlying the mid ventral abdominal wall best visualized image 64 of series 2, nonspecific. No organized fluid collection within this region. Degenerative changes of the lumbar spine. IMPRESSION: IMPRESSION: 1. Surgical changes of gastric bypass and gastric sleeve. No complication. 2. Circumferential mucosal thickening of the distal esophagus, nonspecific finding could represent longstanding reflux. 3. Ill-defined hypoattenuation within the anterior margin of the left lobe of the liver likely representing focal hepatic steatosis. Hepatomegaly. 4. Scattered colonic diverticulosis without diverticulitis. Authenticated and [facility] Dictated By: Jaziel Ogden Transcribed By: Transcribed On: 05/17/2023 1:29 AM Electronically signed by: Jaziel Ogden 05/17/2023 Thank you for referring HAYLIE MORRISSEY to [facility]. Legally authenticated by MAXI REDMOND 2023-05-17 01:29:25 [facility] [place] Provider IMG CT PROCEDURES Fi nal Result documented in this encounter Visit Diagnoses [...] documented as of this encounter Care Teams Plate Cleaner Relationship Specialty Start Date End Date Mily Alamo APRN [address] [place] [address] PCP - General Family Medicine 09/25/21 documented as of this encounter
--- OUTSIDE RECORDS SUMMARY | 2025-02-27 18:18 | XMS_ITS | Encounter Summary ---
Author Organization [facility] Address [address] [place] [address] Care Team Providers Care Shoe Salesman Name Role Phone Mily Alamo APRN Primary Care Provider [phone] Encounter Details Date Type Department Care Team ([facility] st Contact Info) Description 02/17/2024 Outside Procedure External Location [address] [place] [address] Luther Godfrey MD [facility] [place] [address] Social History Tobacco Use Types Packs/Day Years [...] Date Recorded Patient Health Questionnaire-2 Score 0 01/24/2024 Hunger Vital Sign Answer Date Recorded Within [...] Care Clinic [address], [address] [place] [address] Skyler Mckeon MD [address] [facility] [address] [place] [address] documented as of this encounter Procedures Procedure Name Priority Date/Time Associated Diagnosis Comments MAMMOGRAPHY BREAST SCREENING TOMOSYNTHESIS BILATERAL 02/17/2024 10:57 AM EST documented in this encounter Results * Mammography Breast Screening Tomosynthesis Bilateral (02/17/2024 10:57 AM EST) Anatomical Region Laterality Modality Breast Bilateral Mammography 02/17/2024 10:5 7 AM EST Narrative 02/17/2024 3:59 [place] [address] Name: HAYLIE MORRISSEY Exam Date: 02/17/2024 : 1965 Age 58 years Gender: F Physician: LUTHER GODFREY Facility: [facility] Facility HSV: Outpatient Exam: KEISHA SCRN MAMMO W/CAD BILAT Exam: 3-D screening mammography including tomosynthesis and CAD (Computer Assisted Detection). Clinical indication: Asymptomatic screening exam Comparison: Exams to 2021 TECHNIQUE: Routine bilateral 2D screening mammogram with CC and MLO views obtained. 3-D tomosynthesis and Computer assisted detection were utilized for this exam. BREAST DENSITY: There are scattered fibroglandular densities FINDINGS: No suspicious mass, architectural distortion, or suspicious calcifications are present. IMPRESSION: No evidence of malignancy in either breast Recommendation: Annual screening mammography recommended in one year The results of this report will be communicated to the patient by letter in layman's terms. ACR BI-RADS: BI-RADS assessment category 1: Negative mammogram Mammography does not detect approximately 10-15% of breast cancers. A normal mammogram does not exclude breast cancer in a patient with palpable mass or abnormal findings on physical examination. These patients may need biopsies and when clinically indicated a biopsy should not be postponed because of a normal mammogram. If the patient has breast surgery or biopsy, FDA/SA Regulatory Guidelines mandate that this facility receive pathologic results for follow-up correlation. Electronically signed by:Tello Zavala MD02/17/2024 03:56 PM EST Dictated By: Tello Zavala Transcribed By: Transcribed On: 02/17/2024 12:58 PM Electronically signed by: Tello Zavala 02/17/2024 Thank you for referring HAYLIE MORRISSEY to [facility]. Legally authenticated by PRACHI BUCHANAN 2024-02-17 12:58:01 Procedure Note Provider, Generic [place] - 02/17/2024 [place] [address] Name: HAYLIE MORRISSEY Exam Date: 02/17/2024 : 1965 Age 58 years Gender: F Physician: LUTHER GODFREY Facility: [facility] Facility HSV: Outpatient Exam: KEISHA SCRN MAMMO W/CAD BILAT Exam: 3-D screening mammography including tomosynthesis and CAD(Computer Assisted Detection). Clinical indication: Asymptomatic screening exam Comparison: Exams to 2021 TECHNIQUE: Routine bilateral 2D screening mammogram with CC and MLOviews obtained. 3-D tomosynthesis and Computer assisted detection were utilizedfor this exam. BREAST DENSITY: There are scattered fibroglandular densities FINDINGS: No suspicious mass, architectural distortion, or suspicious calcifications are present. IMPRESSION: No evidence of malignancy in either breast Recommendation: Annual screening mammography recommended in one year The results of this report will be communicated to the patient by letterin layman's terms. ACR BI-RADS: BI-RADS assessment category 1: Negative mammogram Mammography does not detect approximately 10-15% of breast cancers. Anormal mammogram does not exclude breast cancer in a patient with palpable massor abnormal findings on physical examination. These patients may needbiopsies and when clinically indicated a biopsy should not be postponed because ofa normal mammogram. If the patient has breast surgery or biopsy, FDA/SA Regulatory Guidelines mandate that this facility receive pathologicresults for follow-up correlation. Electronically signed by:Tello Zavala MD02/17/2024 03:56 PM [facility] Dictated By: Tello Zavala Transcribed By: Transcribed On: 02/17/2024 12:58 PM Electronically signed by: Tello Zavala 02/17/2024 Thank you for referring HAYLIE MORRISSEY to [facility]. Legally authenticated by PRACHI BUCHANAN 2024-02-17 12:58:01 us Luther Godfrey MD IMG BI PROCEDURES Final Result documented in this encounter Visit Diagnoses Not on filedocumented in this encounter Additional Health Concerns Assessment Noted Time PHQ-9 Depression Total Score: 18 023 1:15 PM EDT A fall risk assessment has been complete d for the patient 01/24/2024 2:02 PM EDT A Body Mass Index follow-up plan has been documented for the patient 01/24/2024 2:15 PM EDT documented as of this encounter Care Teams Shoe Salesman Relationship Specialty Start Date End Date Mily Alamo APRN [address] [place] [id number] PCP - General Family Medicine 09/25/21 documented as of this encounter
--- OUTSIDE RECORDS SUMMARY | 2025-02-27 18:18 | XMS_ITS | Encounter Summary ---
Author Organization [facility] Address [address] [place] [address] Care Team Providers Care Office Manager Name Role Phone Tima Bueno MD Primary Care Provider [phone] Silvia Neal FOOD PROCESSOR Unavailable Unavailab le Nitish Neali L FOOD PROCESSOR Unavailable Unavailab Mily Langford APRN Primary Care Provider [phone] Reason for Visit * Reason Comments Med Refill Encounter Details Date Type Department Care Team (Late st Contact Info) Description 12/24/2020 Refill [facility] [address] [place] [address] Tima Bueno MD [address] [place] [address] Moderate episode of recurrent major depressive disorder (CMS/HCC) Social History Tobacco Use Types Packs/Day Years Used Date Smoking Tobacco: Never Smokeless Tobacco: Never Alcohol Use Standard Drinks/Week Comments No 0 (1 standard drink = 0.6 oz pur e alcohol) PHQ-2 Answer Date Recorded Patient Health Questionnaire-2 Score 0 12/27/2020 Comments Unknown Sex and Gender Information Value [...] have Coronavirus / COVID-19? Unable to assess 12/27/2020 9:41 AM EDT documented as of this encounter Functional Status * Over the past 2 weeks, how often have you been bothered by any of the following problems? Question Answer Date of Assessment Author Little interest or pleasure in doing things Not at all 12/27/2020 10:17 AM EDT Lisa Wilhelm LPN Feeling down, depressed, or hopeless Not at all 12/27/2020 10:17 AM EDT Lisa Wilhelm LPN Patient Health Questionnaire-2 Score 0 12/27/2020 10:17 AM EDT Linnette Wilhelm LPN * Calculated C-SSRS Risk Score (Lifetime/Recent) Answer Date of Assessment Author No Risk Indicated 12/27/2020 10:17 AM EDT Lisa Miller LPN * Question Answer Date of Assessment Author 1. Wish to be (Past 1 Month) No 12/27/2020 10:17 AM EDT Lisa Wilhelm LPN 2. Non-Specific Active Suici gianfranco Thoughts (Past 1 Month) No 12/27/2020 10:17 AM EDT Morales Wilhelm LPN 6. Suicidal Behavior (Lifetime) No 10:17 AM EDT Lisa Wilhelm LPN documented as of this encounter Plan of Treatment Upcoming Encounters Date Type Department Care Team (Late st Contact Info) Description 05/03/2025 11:40 AM EST Office Visit [facility] [address], [address] [place] [address] Skyler Mckeon MD [address] [place] [address] [address] [place] [address] documented as of this encounter Visit Diagnoses Diagnosis Moderate episode of recurrent major depressive disorder (CMS/HCC) documented in this encounter Additional Health Concerns Assessment Noted Time PHQ-9 Depression Total Score: 13 021 3:25 PM EDT documented as of this encounter Care Teams Office Manager Relationship Specialty Start Date End Date Tima Bueno MD [facility] [place] [phone] PCP - General 08/19/20 09/24/21 Mily Alamo APRN [address] [place] [address] PCP - General Family Medicine 09/25/21 Silvia Neal LPN [employer] [place] [address] None Registered Nurse Family Medicine 08/08/21 08/08/21 Silvia Neal LPN [employer] [place] [address] None TCM Nurse Family Medicine 08/09/21 09/06/21 documented as of this encounter
--- OUTSIDE RECORDS SUMMARY | 2025-02-27 18:18 | XMS_ITS | Clinical Summary ---
Author Organization [facility] Address [address] [place] [address] Care Team Providers Care Commercial Plumber Name Role Phone Mily Alamo APRN Primary Care Provider [phone] Allergies Active Allergy Reactions Criticality Noted Date Comments Codeine Hives,Rash Medium 12/03/2014 Modafinil Hives,Rash Medium 07/04/2017 Oxycodone-Acetaminophen Hives,Rash Medium 12/03/2014 Medications hydrOXYzine (ATARAX) 25 MG tablet Take 2 tablets by mouth. 3 Active oxybutynin (DITROPAN) 5 MG tablet Take 1 tablet by mouth Every 12 (Twelve) Hours. 3 Active Cranberry Ultra Strength 250-60 MG capsule Take 1 capsule by mouth 2 (Two) Times a Day. 3 Active melatonin 5 MG tablet tablet Take 2 tablets by mouth. Active multivitamin (THERAGRAN) tablet tablet Take 1 tablet by mouth Daily. Patch Active levocetirizine (XYZAL) 5 MG tablet Take 1 tablet by mouth Daily. 3 Active estrogen, conjugated,-med roxyprogesteron e (PREMPRO) 0.45-1.5 MG per tablet Take 1 tablet by mouth Daily. 4 Active methocarbamol (ROBAXIN) 500 MG tablet Take 1 tablet by mouth As Needed. Active B Complex Vitamins (Vitamin B Complex) tablet Take by mouth. Active Ofatumumab 20 MG/0.4ML solution auto-injector Inject 20 mg under the skin into the appropriate area as directed Every 28 (Twenty-Eight) Days. 0.4 mL 11 02/18/2025 8:22 AM EST Active metoprolol succinate XL (TOPROL-XL) 50 MG 24 hr tablet Take 1 tablet by mouth Daily. 90 tablet 1 5 Active fluticasone (FLONASE) 50 MCG/ACT nasal spray Administer 2 sprays into the nostril(s) as directed by provider As Needed for Rhinitis or Allergies. Active lidocaine (XYLOCAINE) 5 % ointment APPLY TO AFFECTED AREA(S) BY TOPICAL ROUTE 1-4 TIMES DAILY NEEDED Active vitamin D (ERGOCALCIFEROL ) 1.25 MG (76524 UT) capsule capsule Take 1 capsule by mouth 1 (One) Time Per Week. Active buPROPion XL (WELLBUTRIN XL) 300 MG 24 hr tablet Take 1 tablet by mouth Every Morning. 90 tablet 3 Active desvenlafaxine (Pristiq) 100 MG 24 hr tablet Take 1 tablet by mouth Daily. 90 tablet 3 5 Active Dalfampridine ER 10 MG tablet sustained-relea se 12 hour Take 10 mg by mouth 2 (Two) Times a Day. 60 tablet 11 02/18/2025 8:22 AM EST Active Homeopathic Products (RA YEAST RELIEF PLUS PO) Active mupirocin (BACTROBAN) 2 % ointment Apply 1 Application topically to the appropriate area as directed Daily. Active pravastatin (PRAVACHOL) 40 MG tablet Take 1 tablet by mouth Daily. Active Active Problems Problem Noted Date Diagnosed Date Preoperative clearance 03/21/2023 Assessment & Plan (03/21/2023 12:59 PM EST): Patient is planning bariatric sleeve revision with Dr. Jace Nuñez. Patient had recent Heart Cath that showed normal coronary arteries. Patient may proceed with surgery from a cardiac standpoint and is low risk for cardiac event. Patients CP and dizziness has resolved since stopping her Rosuvastatin. Will start Zetia 10mg daily. Abnormal stress test 02/20/2023 Palpitations 08/20/2022 Assessment & Plan (07/30/2024 3:51 PM EDT): Patient reports her palpitations have been well-controlled with the metoprolol. Patient to continue current medication. Assessment & Plan (01/30/2024 2:27 PM EDT): Patient reports her palpitations have been well-controlled with the metoprolol. Patient to continue current medication. Assessment & Plan (07/26/2023 2:17 PM EDT): Palpitations and blood pressure has been well-controlled with the metoprolol succinate 50 mg daily. She continues to watch her blood pressure and heart rate at home. She has had a 45 pound weight loss since her weight loss bariatric surgery in May. Will continue to clinically monitor for symptoms. Assessment & Plan (05/24/2023 3:20 PM EST): She states she has not had any episodes of palpitations since having the bariatric surgery. She is occasionally having higher heart rates. She has been off all of her medications since the bariatric surgery. Instructed patient that she may take her metoprolol on an as-needed basis for a heart rate greater than 100. She can cut the metoprolol in half and take half in the morning and half in the evening if needed. She is having issues with enteric coating in gel capsule medications after having the bariatric surgery. She has been getting sick on her multivitamin having to do of vitamin transdermal patch. Assessment & Plan (03/21/2023 1:01 PM EST): On BB. She reports no recent palpitations. Hyperlipidemia, unspecified 09/13/2021 Assessment & Plan (07/30/2024 3:56 PM EDT): Total cholesterol 210, HDL 66, triglycerides 155, and [id number]. Patient is back on her bariatric diet and is hoping that her Lipids will improve before the next follow up visit. Assessment & Plan (01/30/2024 2:27 PM EDT): Lipid abnormalities are stable Plan: Continue same medication/s without change. and continue lifestyle and dietary modifications. Counseled patient on lifestyle modifications to help control hyperlipidemia. Advised patient to exercise for 150 minutes weekly. (30 minute brisk walk, 5 days a week for example) Patient Treatment Goals: LDL goal is less than 70 Followup in 6 months. Assessment & Plan (03/21/2023 12:54 PM EST): Patient was having symptoms of CP and dizziness. She stopped her Rosuvastatin and these symptoms have since resolved. Plan to start Zetia 10mg daily. Discussed side effects of medication with patient. Patient verbalized understanding. Type 2 diabetes mellitus with hyperglycemia 11/2021 Morbid obesity with body mass index (BMI) of 40. 0 or higher 05/23/2021 Hormone replacement therapy (HRT) 02/26/2019 HTN (hypertension), benign 09/24/2018 Assessment & Plan (07/30/2024 3:52 PM EDT): Blood pressure is well-controlled in the office today 122/74. Patient has gained about 9 pounds of her weight back since her last visit. She states that she has gone back on her bariatric diet. Low sodium Increase aerobic exercise as tolerated Weight loss Assessment & Plan (01/30/2024 2:26 PM EDT): Blood pressure is well-controlled today in the office 128/82. Patient to continue her metoprolol. Assessment & Plan (07/26/2023 2:16 PM EDT): Hypertension is stable and controlled Continue current treatment regimen. Dietary sodium restriction. Weight loss. Regular aerobic exercise. Blood pressure will be reassessed in 6 months. Assessment & Plan (05/24/2023 3:21 PM EST): Blood pressure has been well-controlled her PCP is managing her hypertension medications. Patient has not had any of her blood pressure medications since having the bariatric surgery. Limit salt intake Increase exercise as tolerated Continue current medications Assessment & Plan (03/21/2023 1:02 PM EST): Well controlled on lisinopril, Metoprolol, and HCTZ. Continue current medications. Low sodium diet. Increase exercise. Chronic fatigue syndrome 06/06/2018 Depression 07/04/2017 Assessment & Plan (11/30/2024 11:47 AM EDT): Continue Pristiq 100 mg daily Wellbutrin XL 300 mg qam Assessment & Plan (06/02/2024 1:21 PM EST): Mood is stable Continue Pristiq 100 mg daily Wellbutrin XL 300 mg daily GERD (gastroesophageal reflux disease) 8 Insomnia 07/04/2017 Seasonal allergies 07/04/2017 Fibromyalgia 12/03/2014 Multiple sclerosis 12/03/2014 Assessment & Plan (11/30/2024 11:46 AM EDT): Tolerating Kesimpta 20 mg sq q 28 days. Add Ampyra 10 mg BID for gait instability. Assessment & Plan (06/02/2024 1:20 PM EST): Renew Kesimpta 20 mg sq q 4 weeks MRI B/C Resolved Problems Problem Noted Date Diagnosed Date Resolved Date Dizziness 02/20/2023 11/30/2024 Chronic chest pain with low to moderate risk for CAD 02/20/2023 07/30/2024 Overview (02/22/2023): 02/22/2023: LHC at [facility], normal coronary arteries, LVEDP 21 mmHg. Assessment & Plan (01/30/2024 2:27 PM EDT): 02/22/2023: LHC at [facility], normal coronary arteries, LVEDP 21 mmHg. Encounters Date Type Department Care Team Description 02/04/2025 Telephone [facility] [address] [address] Yvonne Bal APRN 01/28/2025 11:00 AM EDT Office Visit [facility] [address] [address] Yvonne Bal, VENKATA HTN (hypertension), benign (Primary Dx); Mixed hyperlipidemia; Palpitations 01/28/2025 Patient rounding ([facility] only) [facility] [address] [place] [address] Yvonne Bal APRN 01/28/2025 Travel 11/30/2024 11:45 AM EDT Office Visit [facility] [address] [facility] [place] [address] Steven Marshall MD Multiple sclerosis (Primary Dx); Recurrent major depressive disorder, in partial remission 11/30/2024 Travel from Last 3 Months Immunizations Immunization Administration Dates Next Due -influenza Vac Quardvalent Preservativ 021 COVID-19 (PFIZER) Purple Cap Monovalent 01/12/20,07/05/2020,06/11/2020 COVID-19 (UNSPECIFIED) 01/24/2023 Covid-19 (Pfizer) Jay Cap Monovalent 10/11/2021 Fluzone >6mos 01/14/2024 Fluzone (or Fluarix & Flulav al for VFC) >6mos 02/23/2022,11/09/2016,11/30/2015 Hepatitis A 09/18/2018 Hepatitis B 2 Dose Vaccine Heplisav-B 01/01/2023 Influenza Injectable Mdck Pf Quad 01/01/2023,09/2019 Influenza Seasonal Injectable 01/24/2023, 021 Influenza, Unspecified 01/03/2021 Pneumococcal Conjugate 13-Valent (PCV13) 017 Pneumococcal Conjugate 20-Valent (PCV20) 023 Shingrix 09/05/2018,06/24/2018 Tdap 06/06/2018 Family History Relation Name Status Comments Brother 5 Alive Father Mother Sister 8 Alive Social History Tobacco Use Types Packs/Day Years Used Date Smoking Tobacco: Never Passive Smoke Exposure: Never Smokeless Tobacco: Never Tobacco Cessation:Counseling Given: No Alcohol Use Standard Drinks/Week Comments Not Currently [...] Orientation Straight 05/26/2024 9: 02 AM EST Last Filed Vital Signs Vital Sign Reading Time Taken Comments Blood Pressure 132/74 01/28/2025 11:01 AM EDT Pulse 74 01/28/2025 11:01 AM EDT Temperature 36.4 C (97.6 F) 02/22/2023 7:15 AM EST Respiratory Rate 20 01/30/2024 1:27 PM EDT Oxygen Saturation 98% 01/28/2025 11:01 AM EDT Inhaled Oxygen Concentration - - Weight 110 kg (241 lb 14.4 oz) 01/28/2025 11:01 AM EDT Height 167.6 cm (5' 5.98 ) 01/28/2025 11:01 AM E DT Body Mass Index 39.06 01/28/2025 11:01 AM EDT Plan of Treatment Upcoming Encounters Date Type Department Care Team (Late st Contact Info) Description 06/02/2025 11:45 AM EST Office Visit [facility] [address] [address] Steven Marshall MD [address] [facility] [address] [place] [address] 07/29/2025 11:30 AM EDT Office Visit [facility] [address] [place] [address] Sejaciel, Yvonne Clayton, MANAGER RESOURCE [address] [place] [address] Health Maintenance Due Date Last Done Comments Annual Gynecologic Pelvic an d Breast Exam 1965 DIABETIC EYE EXAM 10/14/1977 DIABETIC FOOT EXAM 10/14/1977 URINE MICROALBUMIN-CREATININ E RATIO (uACR) 10/14/1977 PAP SMEAR 10/14/1988 COLON CANCER SCREENING 5 YEA R SIGMOIDOSCOPY 10/14/2012 CT COLONOGRAPHY 10/14/2012 FECAL OCCULT BLOOD TEST 10/14/2012 FIT Testing (1 year) 10/14/2012 ANNUAL PHYSICAL 12/10/2017 HEPATITIS C SCREENING 12/10/2017 COLOGUARD 06/30/2022 07/01/2019 Hepatitis B (2 of 2 - CpG 2- dose series) 01/29/2023 01/01/2023 HEMOGLOBIN A1C 01/19/2025 07/20/2024, 07/07, 02/22/2023, Additional history exists LIPID PANEL 07/20/2025 07/20/2024, 07/07, 03/08/2023, Additional history exists MAMMOGRAM 02/16/2026 02/17/2024, 02/06, 10/30/2022, Additional history exists TDAP/TD VACCINES (2 - Td or Tdap) 06/06/2028 019 COLONOSCOPY 01/07/2033 01/07/2023, 09/06/2022 COLORECTAL CANCER SCREENING 01/07/2033 ZOSTER VACCINE Completed 09/05/2018, 06/24/2018 Pneumococcal Vaccine 50+ Completed 11/01/2022, 07/2016 INFLUENZA VACCINE Completed 12/19/2024, , 01/14/2024, Additional history exists Goals Goal Patient Goal Type Associated Problems Recent Progress Patient-Stated? Author Specialty Pharmacy General Goal General On track( 025 11:39 AM EDT) No Simon Ray, PharmD Note: Reduce the number of relapses, delay progression of disability, and limit new disease activity (as seen on MRI). Specialty Pharmacy General Goal General No Karen Odonnell, PharmD Note: Dalfampridine - improved gait stability and walking speed Procedures Procedure Name Priority Date/Time Associated Diagnosis Comments ECG 12-LEAD Routine 01/28/2025 11:36 AM EDT Palpitations SCANNED - LABS 11/27/2024 HEMOGLOBIN A1C STAT 02/22/2023 7:45 AM EST LIPID PANEL STAT 02/22/2023 7:45 AM EST from Last 3 Months or Most Recently Relevant to Health Maintenance Results * ECG 12-LEAD (01/28/2025 11:36 AM [...] ORDERABLES Edited Resul t - Final ECG * LABS SCANNED (11/27/2024) Yvonne Bal APRN LAB BLOOD ORDERABLES Final R esult * (ABNORMAL) Hemoglobin A1c (02/22/2023 7:45 AM EST) Hemoglobin A1C 6.00(H) 4.80 - 5.60 % 02/22/2023 9:13 AM EST [facility] Blood Line / Unknown 02/22/2023 7: 45 AM EST 02/22/2023 7:49 AM EST [facility] - 02/22/2023 9:13 AM EST Hemoglobin A1C Ranges: Increased Risk for Diabetes 5.7% to 6.4% Diabetes >= 6.5% Diabetic Goal < 7.0% Viji Robbin HASTINGS LAB BLOOD ORDERABLES Final Re sult [facility]
[address] [place] [address], * (ABNORMAL) Lipid Panel (02/22/2023 7:45 AM EST) Total Cholesterol 179 0 - 200 mg/dL 02/22/2023 8:28 AM EST [facility] Triglycerides 98 0 - 150 mg/dL 02/22/2023 8:28 AM EST [facility] HDL Cholesterol 78(H) 40 - 60 mg/dL 02/22/2023 8:28 AM EST [facility] LDL Cholesterol 84 0 - 100 mg/dL 02/22/2023 8:28 AM EST [facility] VLDL Cholesterol 17 5 - 40 mg/dL 02/22/2023 8:28 AM EST [facility] LDL/HDL Ratio 1.04 02/22/2023 8:28 AM EST [facility] Blood Line / Unknown 02/22/2023 7: 45 AM EST 02/22/2023 7:49 AM EST Narrative [facility] - 02/22/2023 8:28 AM EST Cholesterol Reference Ranges (U.S. Department of Health and Human Services ATP III Classifications) Desirable <200 mg/dL Borderline High 200-239 mg/dL High Risk >240 mg/dL Triglyceride Reference Ranges (U.S. Department of Health and Human Services ATP III Classifications) Normal <150 mg/dL Borderline High 150-199 mg/dL High 200-499 mg/dL Very High >500 mg/dL HDL Reference Ranges (U.S. Department of Health and Human Services ATP III Classifications) Low <40 mg/dl (major risk factor for CHD) High >60 mg/dl ('negative' risk factor for CHD) LDL Reference Ranges (U.S. Department of Health and Human Services ATP III Classifications) Optimal <100 mg/dL Near Optimal 100-129 mg/dL Borderline High 130-159 mg/dL High 160-189 mg/dL Very High >189 mg/dL us Viji Siegel APRN LAB BLOOD ORDERABLES Final Re sult [facility]
[address] [place] [address], from Last 3 Months or Most Recently Relevant to Health Maintenance Insurance MEDICAID Advance Directives Documents on File Type Date Recorded Patient Foreign Policy Officer Expl anation LIVING WILL - SCAN 02/22/2023 7:16 AM TONY ING WILL, BHLEX, 08/22/2021 Care Teams Commercial Plumber Relationship Specialty Start Date End Date Mily Alamo APRN [address] [place] [address] PCP - General Nurse Practitioner 06/02/24
--- OUTSIDE RECORDS SUMMARY | 2025-02-27 18:18 | XMS_ITS | Encounter Summary ---
Author Organization [facility] Address [address] [place] [address] Care Team Providers Care Transformer Assembly Supervisor Name Role Phone Tima Bueno MD Primary Care Provider [phone] Silvai Neal NOVELTY CHAIN MAKER Unavailable Unavailab Silvia Kay NOVELTY CHAIN MAKER Unavailable Unavailab Mily Langford APRN Primary Care Provider [phone] Encounter Details Date Type Department Care Team (Late st Contact Info) Description 09/24/2020 Refill [facility] [address] [place] [phone] Shaina Pascual MD [address] [place] [phone] Social History Tobacco Use Types Packs/Day Years Used Date Smoking Tobacco: Never Alcohol Use Standard Drinks/Week Comments No 0 (1 standard drink = 0.6 oz pur e alcohol) Comments Unknown Sex and Gender Information Value Date Recorded Sex Assigned at Female 03/27/2021 2:29 AM EST Legal Sex Female 7:47 PM EDT Gender Identity Female 03/27/2021 2:29 AM EST Sexual Orientation Straight 03/27/2021 2: 29 AM EST documented as of this encounter Miscellaneous Notes * Telephone Encounter - Soraida Long - 09/26/2020 12:14 PM EDT Please have MD review. Pt last saw and med renewed by Dr. Pascual. documented in this encounter Plan of Treatment Upcoming Encounters Date Type Department Care Team (Late st Contact Info) Description 05/03/2025 11:40 AM EST Office Visit [facility] [address], [address] [place] [phone] Skyler Mckeon MD [address] [facility] [address] [place] [address] documented as of this encounter Visit Diagnoses Not on filedocumented in this encounter Care Teams Transformer Assembly Supervisor Relationship Specialty Start Date End Date Tima Bueno MD [address] [place] [address] PCP - General 08/19/20 09/24/21 Mily Alamo APRN [address] [place] [address] PCP - General Family Medicine 09/25/21 Silvia Neal LPN [employer] [place] [address] None Registered Nurse Family Medicine 08/08/21 08/08/21 Silvia Neal LPN [employer] [place] [address] None TCM Nurse Family Medicine 08/09/21 09/06/21 documented as of this encounter
--- OUTSIDE RECORDS SUMMARY | 2025-02-27 18:18 | XMS_ITS | Encounter Summary ---
Author Organization Healthcare Address [address] [place] [address] Care Team Providers Care Radio Board Operator Announcer Name Role Phone LynnMily Jia HASTINGS Primary Care Provider [phone] Encounter Details Date Type Department Care Team (Late Contact Info) Description 10/23/2021 Outside Procedure External Location [address] [place] [address] Provider, Zaria [place] Social History Tobacco Use Types Packs/Day Years Used Date Smoking Tobacco: Never Smokeless Tobacco: Never Alcohol Use Standard Drinks/Week Comments No 0 (1 standard drink = 0.6 oz pur e alcohol) PHQ-2 Answer Date Recorded PHQ-2 Score 4 03/27/2021 Comments No Sex and Gender Information Value [...] suspected to have Coronavirus/COVID-19? No / Unsure 09/28/2021 10:38 AM EDT documented as of this encounter Plan of Treatment Upcoming Encounters Date Type Department Care Team (Late Contact Info) Description 05/03/2025 11:40 AM EST Office Visit [facility] [address], [address] [place] [address] Skyler Mckeon MD [address] [facility] [address] [place] [address] documented as of this encounter Procedures Procedure Name Priority Date/Time Associated Diagnosis Comments US BREAST LIMITED LEFT 10/23/2021 1:07 PM EDT documented in this encounter Results * US Breast Limited Left (10/23/2021 1:07 PM EDT) Anatomical Region Laterality Modality Breast Left Ultrasound 10/23/2021 1:07 PM EDT Narrative 10/24/2021 9:47 AM EDT [address] [place] [address] Name: MAX MORRISSEY Exam Date: 10/23/2021 : 1965 Age 56 Gender: F Physician: CHAZ SAUNDERS Facility: [facility] Facility HSV: Outpatient Exam: US BREAST LTD LT MAMMOGRAM DIAGNOSTIC LEFT AND TARGETED LEFT BREAST ULTRASOUND TECHNIQUE: Spot digital 2-D views with 3-D tomosynthesis HISTORY: Abnormal screening exam COMPARISON: October 06, 2021 DENSITY: There are scattered areas of fibroglandular density FINDINGS: Patient was called back for a inner left breast asymmetry, for which additional spot compression views were performed. Asymmetry was persistent. Further evaluation with targeted ultrasound was recommended. ULTRASOUND FINDINGS: Multiple grayscale and color Doppler ultrasound imaging of the left breast performed. A 5 x 2 x 7 mm oval hypoechoic nodule is visualized at the 9:00 axis of the left breast. IMPRESSION: 7 mm oval hypoechoic nodule at the 9:00 axis of the left breast visualized on ultrasound, corresponds to abnormality visualized on the mammogram. BI-RADS 3: Probably benign finding RECOMMENDATION: Follow-up left breast ultrasound only in 6 months. CAD was utilized during interpretation. The patient will be sent a letter from the mammography department with their mammography results. Dictated By: Giovanna Lindsay Transcribed By: Giovanna Santos Transcribed On: 10/24/2021 9:35 AM Electronically signed by: Giovanna Lindsay 10/24/2021 Thank you for referring MAX MORRISSEY to [facility]. Legally authenticated by NAYELI WALTERS 2021-10-24 09:35:51 Procedure Note Provider, Zaria Zelaya - 10/24/2021 [address] [place] [address] Name: MAX MORRISSEY Exam Date: 10/23/2021 : 1965 Age 56 Gender: F Physician: CHAZ SAUNDERS Facility: [facility] Facility HSV: Outpatient Exam: US BREAST LTD MAMMOGRAM DIAGNOSTIC LEFT AND TARGETED LEFT BREAST ULTRASOUND TECHNIQUE: Spot digital 2-D views with 3-D tomosynthesis HISTORY: Abnormal screening exam COMPARISON: October 06, 2021 DENSITY: There are scattered areas of fibroglandular density FINDINGS: Patient was called back for a inner left breast asymmetry, forwhich additional spot compression views were performed. Asymmetry waspersistent. Further evaluation with targeted ultrasound was recommended. ULTRASOUND FINDINGS: Multiple grayscale and color Doppler ultrasound imaging of the leftbreast performed. A 5 x 2 x 7 mm oval hypoechoic nodule is visualized at the 9:00 axis ofthe left breast. IMPRESSION: 7 mm oval hypoechoic nodule at the 9:00 axis of the leftbreast visualized on ultrasound, corresponds to abnormality visualized on the mammogram. BI-RADS 3: Probably benign finding RECOMMENDATION: Follow-up left breast ultrasound only in 6 months. CAD was utilized during interpretation. The patient will be sent a letter from the mammography department withtheir mammography results. Dictated By: Giovanna Lindsay Transcribed By: Giovanna Santos Transcribed On: 10/24/2021 9:35 AM Electronically signed by: Giovanna Lindsay 10/24/2021 Thank you for referring MAX MORRISSEY to [facility]. Legally authenticated by NAYELI WALTERS 2021-10-24 09:35:51 [facility] Provider IMG BI PROCEDURES Fi nal Result documented in this encounter Visit Diagnoses Not on filedocumented in this encounter Additional Health Concerns Assessment Noted Time PHQ-9 Depression Total Score: 13 021 3:25 PM EDT A fall risk assessment has been complete d for the patient 09/13/2021 11:00 AM EDT documented as of this encounter Care Teams Radio Board Operator Announcer Relationship Specialty Start Date End Date Mily Alamo APRN [address] [place] [address] PCP - General Family Medicine 09/25/21 documented as of this encounter
--- OUTSIDE RECORDS SUMMARY | 2025-02-27 18:18 | XMS_ITS | Encounter Summary ---
[facility] Organization [facility] Address [address] [place] [address] Care Team Providers Care Water Filterer Helper Name Role Phone Mily Alamo APRN Primary Care Provider [phone] Encounter Details Date Type Department Care Team (Late st Contact Info) Description 02/04/2025 Telephone [facility] CARDIOLOGY [address] [place] [address] Yvonne Bal APRN [address] [place], [place] [id number] Social History Tobacco Use Types Packs/Day Years [...] encounter Miscellaneous Notes * Telephone Encounter - Gerda Velazquez RegSched Rep - 02/04/2025 9:10 AM EDT EKG AND OV FROM 01/2325 FAXED TO [facility] PRE-ADMISSION SURGICAL DEPT. FAX#[phone] documented in this encounter Plan of Treatment Upcoming Encounters Date Type Department Care Team (Late st Contact Info) Description 06/02/2025 11:45 AM EST Office Visit [facility] NEUROLOGY [address] [place] [address] Steven Marshall MD [address] [place] [address] 07/29/2025 11:30 AM EDT Office Visit [facility] CARDIOLOGY [address] [place] [address] Yvonne Bal APRN [address] [place] [address] [place] [address] documented as of this encounter Goals Goal Patient Goal Type Associated Problems Recent Progress Patient-Stated? Author Specialty Pharmacy General Goal General On track( 025 11:39 AM EDT) No Simon Ray, PharmD Note: Reduce the number of relapses, delay progression of disability, and limit new disease activity (as seen on MRI). Specialty Pharmacy General Goal General No Blas, Karen L, PharmD Note: Dalfampridine - improved gait stability and walking speed documented as of this encounter Visit Diagnoses Not on filedocumented in this encounter Care Teams Water Filterer Helper Relationship Specialty Start Date End Date Mily Alamo APRN [address] [place] [address] PCP - General Nurse Practitioner 06/02/24 documented as of this encounter
--- OUTSIDE RECORDS SUMMARY | 2025-02-27 18:18 | XMS_ITS | Encounter Summary ---
Author Organization Healthcare Address [address] [place] [address] Care Team Providers Care Ticketing Agent Name Role Phone Tima Bueno MD Primary Care Provider [phone] Silvia Neal LPN Unavailable Unavailab Silvia Kay BULLET SLUGS INSPECTOR Unavailable Unavailab Mily Langford APRN Primary Care Provider [phone] Encounter Details Date Type Department Care Team (Late Contact Info) Description 05/02/2021 Outside Procedure External Location [address] [place] [address] Provider, Zaria Zelaya Social History Tobacco Use Types Packs/Day Years [...] Care Clinic [address], [address] [place] [address] [place] [address] [place] [address] [address] [place] [address] documented as of this encounter Procedures Procedure Name Priority Date/Time Associated Diagnosis Comments MR HEAD W AND WO IV CONTRAST 05/02/2021 1:31 PM EST documented in this encounter Results * MR Head w and wo IV Contrast (05/02/2021 1:31 PM EST) Anatomical Region Laterality Modality Head Magnetic Resonan ce 05/02/2021 1:31 PM EST Narrative 05/02/2021 4:36 PM EST [facility] [address] [place] [address] Name: MAX MORRISSEY Exam Date: 05/02/2021 : 1965 Age 55 Gender: F Physician: AURELIA KANG Facility: [facility] Facility HSV: Outpatient Exam: MRI BRAIN W/W/O FINAL REPORT CLINICAL HISTORY: Annual follow-up for MS Patient denies any problems at this time No surgical history 20 ml Multihance given through IV COMPARISON: June 09, 2020 FINDINGS: Multiplanar MR imaging of the brain was performed without and with contrast. there is abnormal signal throughout the deep white matter, left greater than right, stable from the prior exam. Findings are nonspecific but markedly abnormal for patient age.There is no evidence of intracranial hemorrhage or mass. No abnormal extra-axial fluid collection is seen. The ventricular size is within normal limits. There is no evidence of shift of the midline structures. The posterior fossa and brainstem have an unremarkable appearance. No area of abnormal restricted diffusion is identified. No abnormal contrast enhancement is seen. Normal major vessel vascular flow voids are noted. IMPRESSION: Stable deep white matter signal abnormalities greater than expected for patient age. 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 Reviewed, Interpreted and Dictated by Deepak Chi MD Transcribed by Ward Pratt Authenticated by Deepak Chi MD on 05/02/2021 04:25:23 PMEASTERN Dictated By: DEEPAK CHI Transcribed By: Transcribed On: 05/02/2021 4:25 PM Electronically signed by: DEEPAK CHI 05/02/2021 Thank you for referring MAX MORRISSEY to [facility]. Legally authenticated by DANIELA Hudson 2021-05-02 16:25:23 Procedure Note Provider, Generic [employer] - 05/02/2021 [address] [place] [address] Name: MAX MORRISSEY Exam Date: 05/02/2021 : 1965 Age 55 Gender: F Physician: AURELIA KANG Facility: [facility] Facility HSV: Outpatient Exam: MRI BRAIN W/W/O FINAL REPORT CLINICAL HISTORY: Annual follow-up for MS Patient denies any problems at this time No surgical history 20 ml Multihance given through IV COMPARISON: June 09, 2020 FINDINGS: Multiplanar MR imaging of the brain was performed without and with contrast. there is abnormal signal throughout the deep white matter, left greater than right, stable from the prior exam. Findings are nonspecific but markedly abnormal for patient age.There is no evidence of intracranial hemorrhage or mass. No abnormal extra-axial fluid collection is seen. The ventricular size is within normal limits. There is no evidence of shift of the midline structures. The posterior fossa and brainstem have an unremarkable appearance. No area of abnormal restricted diffusion is identified. No abnormal contrast enhancement is seen. Normal major vessel vascular flow voids are noted. IMPRESSION: Stable deep white matter signal abnormalities greater than expected for patient age. 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 Reviewed, Interpreted and Dictated by Deepak Chi MD Transcribed by Ward Pratt Authenticated by Deepak Chi MD on 05/02/2021 04:25:23 PMEASTERN Dictated By: DEEPAK CHI Transcribed By: Transcribed On: 05/02/2021 4:25 PM Electronically signed by: DEEPAK CHI 05/02/2021 Thank you for referring MAX MORRISSEY to [facility]. Legally authenticated by DANIELA Hudson 2021-05-02 16:25:23 us Generic [employer] Provider IMG MRI PROCEDURES F inal Result documented in this encounter Visit Diagnoses Not on filedocumented in this encounter Additional Health Concerns Assessment Noted Time PHQ-9 Depression Total Score: 13 021 3:25 PM EDT A fall risk assessment has been complete d for the patient 12/27/2020 10:17 AM EDT documented as of this encounter Care Teams Ticketing Agent Relationship Specialty Start Date End Date Tima Bueno MD [address] [place] [address] PCP - General 08/19/20 09/24/21 Mily Alamo APRN [address] [place] [address] PCP - General Family Medicine 09/25/21 Silvia Neal LPN [employer] [place] [address] None Registered Nurse Family Medicine 08/08/21 08/08/21 Silvia Neal LPN [employer] [place] [address] None TCM Nurse Family Medicine 08/09/21 09/06/21 documented as of this encounter
--- OUTSIDE RECORDS SUMMARY | 2025-02-27 18:18 | XMS_ITS | Encounter Summary ---
Author Organization Healthcare Address [address] [place] [address] Care Team Providers Care Vacuum Conditioner Operator Name Role Phone JasmeetMily Jia HASTINGS Primary Care Provider [phone] Encounter Details Date Type Department Care Team (Late Contact Info) Description 04/01/2023 Outside Procedure External Location [address] [place] [address] Provider, Zaria [place] Social History Tobacco Use Types Packs/Day Years [...] Care Clinic [address], [address] [place] [address] Skyler Mckeon MD [address] [facility] [address] [place] [address] documented as of this encounter Procedures Procedure Name Priority Date/Time Associated Diagnosis Comments XR CHEST 1 VIEW 04/01/2023 11:47 PM EST documented in this encounter Results * XR Chest 1 View (04/01/2023 11:47 PM EST) Anatomical Region Laterality Modality Chest Digital Radiogra phy 04/01/2023 11:4 7 PM EST Narrative 04/02/2023 8:02 [place] [address] Name: HAYLIE MORRISSEY Exam Date: 04/01/2023 : 1965 Age 57 Gender: F Physician: ISABELA KANG Facility: [facility] Facility HSV: Outpatient Exam: CHEST PORTABLE CHEST, 1 view HISTORY: Shortness of breath. COMPARISON: March 08, 2023. FINDINGS: The lungs are clear. There is no evidence of effusion or other pleural disease. The mediastinum has a normal appearance. Cervical fusion hardware noted. The cardiac silhouette is stable in size. No acute osseous changes. IMPRESSION: No acute cardiopulmonary process. Dictated By: CHAZ SAUNDERS Transcribed By: Chaz Saunders Transcribed On: 04/02/2023 7:46 AM Electronically signed by: CHAZ SAUNDERS 04/02/2023 Thank you for referring HAYLIE MORRISSEY to [facility]. Legally authenticated by POPE CHAZ Ro 2023-04-02 07:46:45 Procedure Note Provider, Generic [place] - 04/02/2023 [place] [address] Name: HAYLIE MORRISSEY Exam Date: 04/01/2023 : 1965 Age 57 Gender: F Physician: ISABELA KANG Facility: [facility] Facility HSV: Outpatient Exam: CHEST PORTABLE CHEST, 1 view HISTORY: Shortness of breath. COMPARISON: March 08, 2023. FINDINGS: The lungs are clear. There is no evidence of effusion or other pleural disease. The mediastinumhas a normal appearance. Cervical fusion hardware noted. The cardiac silhouette is stable in size. No acute osseous changes. IMPRESSION: No acute cardiopulmonary process. Dictated By: CHAZ SAUNDERS Transcribed By: Chaz Saunders Transcribed On: 04/02/2023 7:46 AM Electronically signed by: CHAZ SAUNDERS 04/02/2023 Thank you for referring HAYLIE MORRISSEY to [facility]. Legally authenticated by POPE CHAZ Ro 2023-04-02 07:46:45 us Generic [place] Provider IMG XR PROCEDURES Fi nal Result documented in this [...] documented as of this encounter Care Teams Vacuum Conditioner Operator Relationship Specialty Start Date End Date Mily Alamo APRN [address] [place] [address] PCP - General Family Medicine 09/25/21 documented as of this encounter
--- OUTSIDE RECORDS SUMMARY | 2025-02-27 18:18 | XMS_ITS | Encounter Summary ---
Author Organization [facility] Address [address] [place] [address] Care Team Providers Care Tele Tech Name Role Phone [place] Mily Jia HASTINGS Primary Care Provider [phone] Reason for Visit * Reason Onset Date Comments Med Refill 10/02/2021 Encounter Details Date Type Department Care Team (Late st Contact Info) Description 10/02/2021 Refill Family and Community Medicine [address] [place] [address] Tima Bueno MD [address] [place] [address] Social History Tobacco Use Types [...] AM EDT documented as of this encounter Miscellaneous Notes * Telephone Encounter - Zulema Real - 10/03/2021 4:14 PM EDT Refill request does not meet protocol. Sending to clinic for review. Additional info: Prescribed 05/25/2021 for 90 day supply with 1 refill (picked up on 08/23/2021) byformer provider no longer with clinic. No appt scheduled with new PCP. documented in this encounter Plan of Treatment Upcoming Encounters Date Type Department Care Team (Late st Contact Info) Description 05/03/2025 11:40 AM EST Office Visit [facility] [address], [address] [place] [address] [place] [address] [place] [address] [address] [place] [address] documented as of this encounter Visit Diagnoses Not on filedocumented in this encounter Additional Health Concerns Assessment Noted Time PHQ-9 Depression Total Score: 13 021 3:25 PM EDT A fall risk assessment has been complete d for the patient 09/13/2021 11:00 AM EDT documented as of this encounter Care Teams Tele Tech Relationship Specialty Start Date End Date Mily Alamo APRN [address] [place] [address] PCP - General Family Medicine 09/25/21 documented as of this encounter
--- OUTSIDE RECORDS SUMMARY | 2025-02-27 18:18 | XMS_ITS | Encounter Summary ---
Author Organization [facility] Address [address] [place] [address] Care Team Providers Care Fishing Reel Assembler Name Role Phone VashonMily maloney APRN Primary Care Provider [phone] Encounter Details Date Type Department Care Team (Late st Contact Info) Description 06/29/2024 Results Follow-Up [facility] MRI [place] [address] [place] [address] Steven Marshall MD [address] [place] [address] Social History Tobacco Use Types Packs/Day Years [...] AM EST documented as of this encounter Progress Notes * Steven Marshall MD - 06/29/2024 7:45 AM EDT Notify pt MRI has no active lesions documented in this encounter Plan of Treatment Upcoming Encounters Date Type Department Care Team (Late st Contact Info) Description 06/02/2025 11:45 AM EST Office Visit [facility] NEUROLOGY [address] [place] [address] Steven Marshall MD [address] [place] [address] 07/29/2025 11:30 AM EDT Office Visit [facility] CARDIOLOGY [address] [place] [address] Yvonne Bal APRN [address] [place] [address] [place] [address] documented as of this encounter Goals Goal Patient Goal Type Associated Problems Recent Progress Patient-Stated? Author Specialty Pharmacy General Goal General On track( 025 11:39 AM EDT) No Simon Ray, PharmD Note: Reduce the number of relapses, delay progression of disability, and limit new disease activity (as seen on MRI). documented as of this encounter Visit Diagnoses Not on filedocumented in this encounter Care Teams Fishing Reel Assembler Relationship Specialty Start Date End Date Mily Alamo APRN [address] [place] [address] PCP - General Nurse Practitioner 06/02/24 documented as of this encounter
--- OUTSIDE RECORDS SUMMARY | 2025-02-27 18:18 | XMS_ITS | Encounter Summary ---
Author Organization Healthcare Address [address] [place] [address] Care Team Providers Care Hull Outfit Supervisor Name Role Phone Jasmeet Mily Jia HASTINGS Primary Care Provider [phone] Encounter Details Date Type Department Care Team (Late Contact Info) Description 04/11/2023 Outside Procedure External Location [address] [place] [address] Provider, Zaria [place] Social History Tobacco Use Types Packs/Day Years [...] Care Clinic [address], [address] [place] [address] Skyler Mckeon MD [address] [facility] [address] [place] [address] documented as of this encounter Procedures Procedure Name Priority Date/Time Associated Diagnosis Comments CT ANGIO CHEST 04/11/2023 9:12 PM EST documented in this encounter Results * CT Angio Chest (04/11/2023 9:12 PM EST) Anatomical Region Laterality Modality Chest Computed Tomogra phy 04/11/2023 9:12 PM EST [facility] Provider IMG CT PROCEDURES Fi nal Result [...] documented as of this encounter Care Teams Hull Outfit Supervisor Relationship Specialty Start Date End Date Mily Alamo APRN [address] [place] [address] PCP - General Family Medicine 09/25/21 documented as of this encounter
--- OUTSIDE RECORDS SUMMARY | 2025-02-27 18:18 | XMS_ITS | Encounter Summary ---
Author Organization Healthcare Address [address] [place] [address] Care Team Providers Care Real Estate Attorney Name Role Phone Jasmeet Mily Jia HASTINGS Primary Care Provider [phone] Encounter Details Date Type Department Care Team (Late Contact Info) Description 10/17/2021 Outside Procedure External Location [address] [place] [address] Luther Godfrey MD [address] [place] [address] Social History Tobacco Use Types Packs/Day [...] Care Clinic [address], [address] [place] [address] Sykler Mckeon MD [address] [facility] [address] [place] [address] documented as of this encounter Procedures Procedure Name Priority Date/Time Associated Diagnosis Comments MAMMOGRAPHY BREAST POST BIOPSY CLIP LEFT 10/17/2021 3:02 PM EDT documented in this encounter Results * Mammography Breast Post Biopsy Clip Left (10/17/2021 3:02 PM EDT) Anatomical Region Laterality Modality Breast Left Mammography 10/17/2021 3:02 PM EDT Narrative 10/24/2021 9:47 AM EDT [address] [address] Name: MAX MORRISSEY Exam Date: 10/17/2021 : 1965 Age 56 Gender: F Physician: LUTHER GODFREY Facility: [facility] Facility HSV: Outpatient Exam: KEISHA DIAG MAMMO W/CAD LT MAMMOGRAM DIAGNOSTIC LEFT AND TARGETED LEFT [...] Thank you for referring MAX MORRISSEY to [facility]. Legally authenticated by NAYELI WALTERS 2021-10-24 09:35:38 Procedure Note Provider, Generic [place] - 10/24/2021 [place] [address] Name: MAX MORIRSSEY Exam Date: 10/17/2021 : 1965 Age 56 Gender: F Physician: LUTHER GODFREY Facility: [facility] Facility HSV: Outpatient Exam: KEISHA DIAG MAMMO W/CAD LT MAMMOGRAM DIAGNOSTIC LEFT AND TARGETED LEFT [...] Thank you for referring MAX MORRISSEY to [facility]. Legally authenticated by NAYELI WALTERS 2021-10-24 09:35:38 us Luther Godfrey MD IMG BI PROCEDURES Final Result documented in this encounter Visit Diagnoses Not on filedocumented in this encounter Additional Health Concerns Assessment Noted Time PHQ-9 Depression Total Score: 13 021 3:25 PM EDT A fall risk assessment has been complete d for the patient 09/13/2021 11:00 AM EDT documented as of this encounter Care Teams Real Estate Attorney Relationship Specialty Start Date End Date Mily Alamo, V[place] [address] [place] [address] PCP - General Family Medicine 09/25/21 documented as of this encounter
--- OUTSIDE RECORDS SUMMARY | 2025-02-27 18:18 | XMS_ITS | Encounter Summary ---
Author Organization [facility] Address [address] [place] [address] Care Team Providers Care Laboratory Secretary Name Role Phone Mily Aalmo APRN Primary Care Provider [phone] Encounter Details Date Type Department Care Team ([facility] st Contact Info) Description 08/28/2024 Outside Procedure External Location [address] [place] [address] Magi Whitlock PA [id number] Social History Tobacco Use Types Packs/Day Years [...] place to sleep or slept in a long term (including now)? No 07/24/2023 PHQ-9 Answer Date [...] any time in the past 12 m [facility], were you homeless or living in a long term (including now)? No 07/20/2024 Utilities Answer Date Recorded In the past 12 months has th e [employer], gas, oil, or water [employer] threatened to shut off services in your [...] 05/03/2025 11:40 AM EST Office Visit [facility] [address], [address] [place] [address] Skyler Mckeon MD [address] [facility] [address] [place] [address] documented as of this encounter Procedures Procedure Name Priority Date/Time Associated Diagnosis Comments XR SHOULDER RIGHT 2+ VIEWS 08/28/2024 11:11 AM EDT documented in this encounter Results * XR Shoulder Right 2+ Views (08/28/2024 11:11 AM EDT) Anatomical Region Laterality Modality Upper Extremities, Shoulder Right Digi [facility]lyse Radiography 08/28/2024 11:1 1 AM EDT Narrative 09/01/2024 4:23 PM EDT [place] [id number] Name: HAYLIE MORRISSEY Exam Date: 08/28/2024 : 1965 Age 58 years Gender: F Physician: MAGI WHITLOCK Facility: [facility] Facility HSV: Outpatient Exam: SHOULDER COMP MIN 2 VWS RT Right shoulder 2 views HISTORY: Osteoarthritis TECHNIQUE: 3 views FINDINGS: Mild degenerative changes in the AC joint and glenohumeral joints. Spurring of the AC joint margins. No fracture or dislocation. Calcific bursitis/tendinitis around the greater tuberosity. Small calcification anterior lip of the glenoid also noted. IMPRESSION: Mild DJD. Calcific bursitis/tendinitis. Electronically signed by: Danilo Sanchez MD 09/01/2024 04:20 PM EDT Dictated By: Danilo Sanchez Transcribed By: Transcribed On: 09/01/2024 4:20 PM Electronically signed by: Danilo Sanchez 09/01/2024 Thank you for referring HAYLIE MORRISSEY to [facility]. Legally authenticated by DARY WARE 2024-09-01 16:20:01 Procedure Note Provider, Generic [place] - 09/01/2024 [facility] [address] [place] [address] Name: HAYLIE MORRISSEY Exam Date: 08/28/2024 : 1965 Age 58 years Gender: F Physician: MAGI WHITLOCK Facility: [facility] Facility HSV: Outpatient Exam: SHOULDER COMP MIN 2 VWS RT Right shoulder 2 views HISTORY: Osteoarthritis TECHNIQUE: 3 views FINDINGS: Mild degenerative changes in the AC joint and glenohumeral joints.Spurring of the AC joint margins. No fracture or dislocation. Calcificbursitis/tendinitis around the greater tuberosity. Small calcification anterior lip of theglenoid also noted. IMPRESSION: Mild DJD. Calcific bursitis/tendinitis. Electronically signed by: Danilo Sanchez MD 09/01/2024 04:20 PM EDT RP Dictated By: Danilo Sanchez Transcribed By: Transcribed On: 09/01/2024 4:20 PM Electronically signed by: Danilo Sanchez 09/01/2024 Thank you for referring HAYLIE MORRISSEY to [facility]. Legally authenticated by DARY WARE 2024-09-01 16:20:01 Magi CARPIO IMG XR PROCEDURES Final Result documented in this encounter Visit Diagnoses Not on filedocumented in this encounter Additional Health Concerns Assessment Noted Time PHQ-9 Depression Total Score: 9 07/21/19 25 10:05 AM EDT A fall risk assessment has been complete d for the patient 04/22/2024 1:07 PM EST A Body Mass Index follow-up plan has been documented for the patient 07/20/2024 10:47 AM EDT documented as of this encounter Care Teams Laboratory Secretary Relationship Specialty Start Date End Date Mily Alamo APRN [address] [place] [address] PCP - General Family Medicine 09/25/21 documented as of this encounter
--- OUTSIDE RECORDS SUMMARY | 2025-02-27 18:18 | XMS_ITS | Encounter Summary ---
Author Organization Healthcare Address [address] [place] [address] Care Team Providers Care Chopping Machine Operator Name Role Phone Jasmeet Mily Jia HASTINGS Primary Care Provider [phone] Encounter Details Date Type Department Care Team (Late Contact Info) Description 10/06/2021 Outside Procedure External Location [address] [place] [address] Luther Godfrey MD [address] [place] [address] Social History Tobacco Use Types Packs/Day [...] Clinic [address], [address] [place] [address] Skyler Mckeon MD [address] [facility] [address] [place] [address] documented as of this encounter Procedures Procedure Name Priority Date/Time Associated Diagnosis Comments MAMMOGRAPHY BREAST SCREENING TOMOSYNTHESIS BILATERAL 10/06/2021 11:15 AM EDT documented in this encounter Results * Mammography Breast Screening Tomosynthesis Bilateral (10/06/2021 11:15 AM EDT) Anatomical Region Laterality Modality Breast Bilateral Mammography 10/06/2021 11:1 5 AM EDT Narrative 10/06/2021 4:37 PM EDT [address] [place] [address] Name: Haylie Parker Exam Date: 10/06/2021 : 1965 Age 55 Gender: F Physician: LUTHER GODFREY Facility: [facility] Facility HSV: Outpatient Exam: KEISHA SCRN MAMMO W/CAD BILAT MAMMOGRAM SCREENING BILATERAL HISTORY: Routine screening exam COMPARISON: None, Baseline exam TECHNIQUE: Standard digital 2-D views with 3-D tomosynthesis DENSITY: There are scattered areas of fibroglandular density FINDINGS: A 4 mm focal nodular asymmetry seen in the medial left breast new from prior exam. No mass is seen within the right breast. No suspicious calcifications or architectural distortion is present. IMPRESSION: 1. Interval development of focal asymmetry medial left breast 2. No mammographic evidence of malignancy right breast BI-RAD 0: INCOMPLETE: NEED ADDITIONAL IMAGING EVALUATION RECOMMENDATION: 1. Spot compression views left breast nodule with ultrasound pending additional views 2. Annual screening mammography right breast CAD was utilized during interpretation. The patient will be sent a letter from the mammography department with their mammography results. Dictated By: NYLA CHILDRESS Transcribed By: Sanjay Childress Transcribed On: 10/06/2021 4:26 PM Electronically signed by: NYLA CHILDRESS 10/06/2021 Thank you for referring Haylie Parker to [facility]. Legally authenticated by MONROE SEAY 2021-10-06 16:26:48 Procedure Note Provider, Zaria [place] - 10/06/2021 [address] [place] [address] Name: Haylie Parker Exam Date: 10/06/2021 : 1965 Age 55 Gender: F Physician: LUTHER GODFREY Facility: [facility] Facility HSV: Outpatient Exam: KEISHA SCRN MAMMO W/CAD BILAT MAMMOGRAM SCREENING BILATERAL HISTORY: Routine screening exam COMPARISON: None, Baseline exam TECHNIQUE: Standard digital 2-D views with 3-D tomosynthesis DENSITY: There are scattered areas of fibroglandular density FINDINGS: A 4 mm focal nodular asymmetry seen in the medial left breastnew from prior exam. No mass is seen within the right breast. No suspicious calcifications or architectural distortion is present. IMPRESSION: 1. Interval development of focal asymmetry medial left breast 2. No mammographic evidence of malignancy right breast BI-RAD 0: INCOMPLETE: NEED ADDITIONAL IMAGING EVALUATION RECOMMENDATION: 1. Spot compression views left breast nodule with ultrasound pending additional views 2. Annual screening mammography right breast CAD was utilized during interpretation. The patient will be sent a letter from the mammography department withtheir mammography results. Dictated By: NYLA CHILDRESS Transcribed By: Sanjay Childress Transcribed On: 10/06/2021 4:26 PM Electronically signed by: NYLA CHILDRESS 10/06/2021 Thank you for referring Haylie Parker to [facility]. Legally authenticated by MONROE SEAY 2021-10-06 16:26:48 us Luther Godfrey MD IMG BI PROCEDURES Final Result documented in this encounter Visit Diagnoses Not on filedocumented in this encounter Additional Health Concerns Assessment Noted Time PHQ-9 Depression Total Score: 13 10/24/ 021 3:25 PM EDT A fall risk assessment has been complete d for the patient 09/13/2021 11:00 AM EDT documented as of this encounter Care Teams Chopping Machine Operator Relationship Specialty Start Date End Date Mily Alamo APRN [address] [place] [address] PCP - General Family Medicine 09/25/21 documented as of this encounter
--- OUTSIDE RECORDS SUMMARY | 2025-02-27 18:18 | XMS_ITS | Encounter Summary ---
Author Organization [facility] Address [address] [place] [address] Care Team Providers Care Wind Turbine Performance Engineer Name Role Phone Mily Alamo APRN Primary Care Provider [phone] Encounter Details Date Type Department Care Team (Late st Contact Info) Description 01/28/2025 Patient rounding ([facility]) [facility] CARDIOLOGY [address] [place] [address] Yvonne Bal APRN [address] [place], [place] [id number] Social History Tobacco Use Types Packs/Day Years [...] as of this encounter Progress Notes * Sandra Cruz RegSched Rep - 01/28/2025 12:47 PM EDT ..My name is Aby Garcia and I am the Goring Cutter for [facility]. I would like to thank you for being a loyal patient. If you do not mind I would like to ask you a few questions about your recent visit with us. Please feel free to reply if you wish to provide us with feedback on your first visit with our practice. First, could you tell me what went well with your recent visit? Secondly, we are always looking for ways to make our patients' experiences even better. Do you haveany recommendations on ways we may improve? Finally, overall were you satisfied with your first visit to us as a [facility] facility? In the next few days, you will be receiving a Patient Experience Survey. Thank you for taking the time to answer a few questions today. I hope you have a good day. documented in this encounter Plan of Treatment Upcoming Encounters Date Type Department Care Team (Late st Contact Info) Description 06/02/2025 11:45 AM EST Office Visit [facility] NEUROLOGY [address] [facility] [address] [place] [address] Steven Marshall MD [address] [facility] [address] [place] [address] 07/29/2025 11:30 AM EDT Office Visit [facility] CARDIOLOGY [address] [address] Yvonne Bal APRN [address] [place], [place] [id number] documented as of this encounter Goals Goal [...] on filedocumented in this encounter Care Teams Wind Turbine Performance Engineer Relationship Specialty Start Date End Date Mily Alamo APRN [facility] [address] PCP - General Nurse Practitioner 06/02/24 documented as of this encounter
--- OUTSIDE RECORDS SUMMARY | 2025-02-27 18:18 | XMS_ITS | Encounter Summary ---
Author Organization Healthcare Address [address] [place] [address] Care Team Providers Care Tutoring Clinician Name Role Phone Jasmeet Mily Jia HASTINGS Primary Care Provider [phone] Encounter Details Date Type Department Care Team (Late Contact Info) Description 04/02/2023 Outside Procedure External Location [address] [place] [address] Provider, Zaria [place] Social History Tobacco Use Types Packs/Day Years [...] Care Clinic [address], [address] [place] [address] Skyler Mckeon MD 219 [facility] 125 [place] [address] documented as of this encounter Procedures Procedure Name Priority Date/Time Associated Diagnosis Comments CT ANGIO CHEST 04/02/2023 2:21 AM EST documented in this encounter Results * CT Angio Chest (04/02/2023 2:21 AM EST) Anatomical Region Laterality Modality Chest Computed Tomogra phy 04/02/2023 2:21 AM EST Generic [place] Provider IMG CT PROCEDURES Fi nal Result [...] documented as of this encounter Care Teams Tutoring Clinician Relationship Specialty Start Date End Date Mily Alamo APRN [address] [place] [address] PCP - General Family Medicine 09/25/21 documented as of this encounter
--- OUTSIDE RECORDS SUMMARY | 2025-02-27 18:18 | XMS_ITS | Encounter Summary ---
Author Organization [facility] Address [address] [place] [address] Care Team Providers Care Inspector Aide Name Role Phone Mily Alamo APRN Primary Care Provider [phone] Encounter Details Date Type Department Care Team (Late st Contact Info) Description 08/08/2023 Outside Procedure External Location [address] [place] [address] Kati Nuñez P, DO [address] [place] [address] Social History Tobacco Use Types Packs/Day Years [...] Care Clinic [address], [address] [place] [address] Skyler Mckeon MD 2[address] [facility] 125 [place] [address] documented as of this encounter Procedures Procedure Name Priority Date/Time Associated Diagnosis Comments MR HEAD W AND WO IV CONTRAST 08/08/2023 2:13 PM EDT documented in this encounter Results * MR Head w and wo IV Contrast (08/08/2023 2:13 PM EDT) Anatomical Region Laterality Modality Head Magnetic Resonan ce 08/08/2023 2:13 PM EDT Narrative 08/09/2023 8:40 [place] [address] Name: HAYLIE MORRISSEY Exam Date: 08/08/2023 : 1965 Age 57 years Gender: F Physician: KATI NUÑEZ Facility: [facility] Facility HSV: Outpatient Exam: MRI BRAIN W/W/O FINAL REPORT TECHNIQUE: Multiplanar MR, without and with contrast administration CLINICAL HISTORY: F/U MULTIPLE SCLEROSIS AND ANGIOMA FRONTAL REGION.PRIORS SENT GFR GREATER THAN 6020ML MULTIHANCE COMPARISON: 06/20/2022 FINDINGS: Diffusion sequences show no signal abnormalities to indicate acute infarct.There are extensive, small to moderate foci of white matter signal changes in the bilateral hemispheres, greatest in the frontal lobes.There is no brainstem or cerebellar involvement.Distribution is stable from prior exam. There is no abnormal enhancement to indicate active demyelination.The brain parenchyma is homogeneous with normal signal pattern.Ventricles are normal.No edema or hemorrhage is seen.Major vessel flow-voids are intact. IMPRESSION: Stable, numerous right mental signal changes suggestive of moderate changes of multiple sclerosis without evidence of active demyelination. Reviewed, Interpreted and Dictated by An Heart MD Transcribed by Emerald [place] Authenticated and EASTERN Dictated By: Sanjay Heart Transcribed By: Transcribed On: 08/09/2023 8:29 AM Electronically signed by: Sanjay Heart 08/09/2023 Thank you for referring HAYLIE MORRISSEY to [facility]. 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 There is no abnormal enhancement to indicate active demyelination.The brain parenchyma is homogeneous with normal signal pattern.Ventricles are normal.No edema or hemorrhage is seen.Major vessel flow-voids are intact. IMPRESSION: Stable, numerous right mental signal changes suggestive of moderate changes of multiple sclerosis without evidence of active demyelination. Reviewed, Interpreted and Dictated by An Heart MD Transcribed by Emerald Ash[place] Authenticated and EASTERN Dictated By: Sanjay Heart Transcribed By: Transcribed On: 08/09/2023 8:29 AM Electronically signed by: Sanjay Heart 08/09/2023 Thank you for referring HAYLIE MORRISSEY to [facility]. Legally authenticated by MONROE SEAY 2023-08-09 08:29:47 us Kati Nuñez DO IMG MRI PROCEDURES Final Resu lt documented in this encounter Visit Diagnoses Not [...] documented as of this encounter Care Teams Inspector Aide Relationship Specialty Start Date End Date Mily Alamo APRN [address] [place] [address] PCP - General Family Medicine 09/25/21 documented as of this encounter
--- OUTSIDE RECORDS SUMMARY | 2025-02-27 18:18 | XMS_ITS | Encounter Summary ---
Author Organization [facility] Address [address] [place] [address] Care Team Providers Care Business Systems Administrator Name Role Phone Jasmeet Mily VENKATA Primary Care Provider Encounter Details Date Type [...] Description 06/02/2025 11:45 AM EST Office Visit [facility] NEUROLOGY [address] [place] [address] Steven Marshall MD [address] [place] [address] 07/29/2025 11:30 AM EDT Office Visit [facility] CARDIOLOGY [address] [place] [address] Yvonne Bal APRN [address] [place] [address] documented as of this encounter [...] on filedocumented in this encounter Care Teams Business Systems Administrator Relationship Specialty Start Date End Date Mily Alamo APRN [address] [place] [address] PCP - General Nurse Practitioner 06/02/24 documented as of this encounter
--- OUTSIDE RECORDS SUMMARY | 2025-02-27 18:19 | XMS_ITS | Encounter Summary ---
Author Organization [facility] Address [address] [place] [address] Care Team Providers Care Clinical Ob Name Role Phone Jenna Alamo APRN Primary Care Provider [phone] Encounter Details Date Type Department Care Team ([facility] st Contact Info) Description 11/01/2022 Outside Procedure External Location [address] [place] [address] Jenna Alamo APRN [address] [place] [address] Social History Tobacco Use Types Packs/Day Years Used Date Smoking Tobacco: Never Smokeless Tobacco: Never Alcohol Use Standard Drinks/Week Comments No 0 (1 standard drink = 0.6 oz pur e alcohol) PHQ-2 Answer Date Recorded Patient Health Questionnaire-2 Score 0 11/01/2022 PHQ-9 Answer Date Recorded Patient Health Questionnaire-9 Score 18 07/24/2022 Comments No Sex and Gender Information Value Date Recorded Sex Assigned at Female 03/27/2021 2:29 AM EST Legal Sex Female 7:47 PM EDT Gender Identity Female 03/27/2021 2:29 AM EST Sexual Orientation Straight 03/27/2021 2: 29 AM EST documented as of this encounter Functional Status * Over the past 2 weeks, how often have you been bothered by any of the following problems? Question Answer Date of Assessment Author Little interest or pleasure in doing things Not at all 11/01/2022 11:11 AM EDT Lisa Wilhelm LPN Feeling down, depressed, or hopeless Not at all 11/01/2022 11:11 AM EDT Lisa Wilhelm LPN Patient Health Questionnaire-2 Score 0 11/01/2022 11:11 AM EDT Linnette Wilhelm LPN documented as of this encounter Plan of Treatment Upcoming Encounters Date Type Department Care Team (Late st Contact Info) Description 05/03/2025 11:40 AM EST Office Visit [facility] [address], [address] [place] [address] Skyler Mckeon MD 2[address] [facility] [address] [place] [address] documented as of this encounter Procedures Procedure Name Priority Date/Time Associated Diagnosis Comments XR ABDOMEN 1 VIEW 11/01/2022 11: 54 AM EDT documented in this encounter Results * XR Abdomen 1 View (11/01/2022 11:54 AM EDT) Anatomical Region Laterality Modality Body Digital Radiogra phy 11/01/2022 11:5 4 AM EDT Narrative 11/01/2022 12:33 [place] [address] Name: MAX MORRISSEY Exam Date: 11/01/2022 : 1965 Age 57 Gender: F Physician: JENNA ALAMO Facility: [facility] Facility HSV: Outpatient Exam: ABD KUB 1V SINGLE VIEW ABDOMEN: HISTORY: Pain FINDINGS: The visualized intestinal gas pattern appears unremarkable without evidence to suggest obstruction. Large amount of colonic stool is present. No abnormal radiopacities are seen in the abdomen. IMPRESSION: Large amount of colonic stool. No bowel obstruction. Dictated By: Giovanna Lindsay Transcribed By: Giovanna Santos Transcribed On: 11/01/2022 12:21 PM Electronically signed by: Giovanna Lindsay 11/01/2022 Thank you for referring MAX MORRISSEY to [facility]. Legally authenticated by NAYELI WALTERS 2022-11-01 12:21:06 Procedure Note Provider, Zaria [place] - 11/01/2022 [address] [place] [address] Name: MAX MORRISSEY Exam Date: 11/01/2022 : 1965 Age 57 Gender: F Physician: JENNA ALAMO Facility: [facility] Facility HSV: Outpatient Exam: ABD KUB 1V SINGLE VIEW ABDOMEN: HISTORY: Pain FINDINGS: The visualized intestinal gas pattern appears unremarkablewithout evidence to suggest obstruction. Large amount of colonic stool is present.No abnormal radiopacities are seen in the abdomen. IMPRESSION: Large amount of colonic stool. No bowel obstruction. Dictated By: Giovanna Lindsay Transcribed By: Giovanna Santos Transcribed On: 11/01/2022 12:21 PM Electronically signed by: Giovanna Lindsay 11/01/2022 Thank you for referring MAX MORRISSEY to [facility]. Legally authenticated by NAYELI WALTERS 2022-11-01 12:21:06 Jenna Alamo APRN IMG XR PROCEDURES Final Result documented in this encounter Visit Diagnoses Not on filedocumented in this encounter Additional Health Concerns Assessment Noted Time PHQ-9 Depression Total Score: 18 023 1:15 PM EDT A fall risk assessment has been complete d for the patient 10/23/2022 11:45 AM EDT A Body Mass Index follow-up plan has been documented for the patient 11/01/2022 11:42 AM EDT documented as of this encounter Care Teams Clinical Ob Relationship Specialty Start Date End Date Jenna Alamo APRN [address] [place] [address] PCP - General Family Medicine 09/25/21 documented as of this encounter
--- OUTSIDE RECORDS SUMMARY | 2025-02-27 18:19 | XMS_ITS ---
Author Organization [facility] Address [address] [place] [address] Care Team Providers Care Roller Coaster Operator Name Role Phone Mily Alamo APRN Primary Care Provider [phone] Multiple Sclerosis Status:Enrolled (Active) Start date:06/03/2024 Enrollment date:06/18/2024 Enrollment reason:New start at Current support & services provided:Clinical Assessment, Refill Coordination , Benefits Investigation, Prior Authorization, [facility] Dispensing , In- person/Telemed Visit Required Linked medications:Dalfampridine (Active), Ofatumumab (Active) Linked problems:Multiple sclerosis (Active) Case Team Name Relationship Phone Steven Marshall MD Consulting Physician Continued Care and Services Coordination
--- OUTSIDE RECORDS SUMMARY | 2025-02-27 18:19 | XMS_ITS | Encounter Summary ---
Author Organization Healthcare Address [address] [place] [address] Care Team Providers Care Shactor Helper Name Role Phone Jasmeet Mily Jia HASTINGS Primary Care Provider [phone] Encounter Details Date Type Department Care Team (Late st Contact Info) Description 09/18/2022 Outside Procedure External Location [address] [place] [address] Provider, Zaria [place] Social History Tobacco Use Types Packs/Day Years Used Date Smoking Tobacco: Never Smokeless Tobacco: Never Alcohol Use Standard Drinks/Week Comments No 0 (1 standard drink = 0.6 oz pur e alcohol) PHQ-2 Answer Date Recorded Patient Health Questionnaire-2 Score 0 09/04/2022 PHQ-9 Answer Date Recorded Patient Health Questionnaire-9 [...] Care Clinic [address] [place] [address] Skyler Mckeon MD 2[address] [facility] [address] [place] [address] documented as of this encounter Procedures Procedure Name Priority Date/Time Associated Diagnosis Comments US BREAST LIMITED LEFT 09/18/2022 12:41 PM EDT documented in this encounter Results * US Breast Limited Left (09/18/2022 12:41 PM EDT) Anatomical Region Laterality Modality Breast Left Ultrasound 09/18/2022 12:4 1 PM EDT Narrative 09/18/2022 1:52 [place] [address] Name: HAYLIE MORRISSEY Exam Date: 09/18/2022 : 1965 Age 56 Gender: F Physician: CHAZ SAUNDERS Facility: [facility] Facility HSV: Outpatient Exam: US BREAST LTD LT LEFT BREAST ULTRASOUND HISTORY: Six-month follow-up FINDINGS: Small hypoechoic structure in the 9 o'clock position of left breast is slightly morphologically different compared to the prior study. Today there is more the appearance of 2 adjacent small 2-3 mm structures. Six-month follow-up ultrasound and mammogram again recommended to assess for stability. IMPRESSION: BI-RADS 3: Probably benign. RECOMMENDATION: 6 month follow-up recommended. Dictated By: CHAZ SAUNDERS Transcribed By: Chaz Saunders Transcribed On: 09/18/2022 1:40 PM Electronically signed by: CHAZ SAUNDERS 09/18/2022 Thank you for referring HAYLIE MORRISSEY to [facility]. Legally authenticated by POPE CHAZ Ro 2022-09-18 13:40:08 Procedure Note Provider, Generic [place] - 09/18/2022 [place] [address] Name: HAYLIE MORRISSEY Exam Date: 09/18/2022 : 1965 Age 56 Gender: F Physician: CHAZ SAUNDERS Facility: [facility] Facility HSV: Outpatient Exam: US BREAST LTD LT LEFT BREAST ULTRASOUND HISTORY: Six-month follow-up FINDINGS: Small hypoechoic structure in the 9 o'clock position of leftbreast is slightly morphologically different compared to the prior study. Todaythere is more the appearance of 2 adjacent small 2-3 mm structures. Six-month follow-up ultrasound and mammogram again recommended to assess forstability. IMPRESSION: BI-RADS 3: Probably benign. RECOMMENDATION: 6 month follow-up recommended. Dictated By: CHAZ SAUNDERS Transcribed By: Chaz Saunders Transcribed On: 09/18/2022 1:40 PM Electronically signed by: CHAZ SAUNDERS 09/18/2022 Thank you for referring HAYLIE MORRISSEY to [facility]. Legally authenticated by POPE CHAZ Ro 2022-09-18 13:40:08 Generic [place] Provider IMG BI PROCEDURES Fi nal Result documented in this encounter Visit Diagnoses Not on filedocumented in this encounter Additional Health Concerns Assessment Noted Time PHQ-9 Depression Total Score: 18 023 1:15 PM EDT A fall risk assessment has been complete d for the patient 09/13/2021 11:00 AM EDT A Body Mass Index follow-up plan has been documented for the patient 09/04/2022 2:17 PM EDT documented as of this encounter Care Teams Shactor Helper Relationship Specialty Start Date End Date Mily Alamo, PANEL MACHINE SETTER [address] [place] [address] PCP - General Family Medicine 09/25/21 documented as of this encounter
--- OUTSIDE RECORDS SUMMARY | 2025-02-27 18:19 | XMS_ITS | Clinical Summary ---
Author Organization [facility] Address [address] [place] [address] Care Team Providers Care Coffee Maker Name Role Phone [place] Mily Jia HASTINGS Primary Care Provider [phone] Allergies Active Allergy Reactions Criticality Noted Date Comments Atorvastatin Dizziness Low 01/04/2025 Reported dizziness and chest pain when she took the medication. Resolved when medication was stopped. Codeine Hives,Rash Medium 12/03/2014 Modafinil Hives,Rash Medium 07/04/2017 Nsaids Other - please document in the comment field Low 11/14/2023 Not supposed to have due to hx of gastric bypass Other Other - please document in the comment field Low 11/14/2023 Not supposed to take CAPSULE medications due to hx of gastric bypass Oxycodone-Acetaminophe n Hives,Rash Medium 12/03/2014 Rosuvastatin Dizziness Low 12/24/2024 Noted in chart allergic reaction as well as chest pain and dizziness. Resolved when medication was stopped. Medications oxybutynin (Ditropan) 5 MG tablet Take 1 tablet (5 mg) by mouth 2 (two) times a day. 2 Active Melatonin 5 MG tablet tablet Take 2 tablets (10 mg) by mouth at night if needed for sleep. Active meclizine (Antivert) 12.5 MG tabletIndications :Vertigo Take 1 tablet (12.5 mg) by mouth 3 (three) times a day if needed for dizziness. 30 tablet 1 3 Active metoprolol succinate XL (Toprol-XL) 50 MG 24 hr tablet Take 1 tablet (50 mg) by mouth 1 (one) time each day. Do not crush or chew. Active Kesimpta 20 MG/0.4ML solution auto-injector Inject 20 mg as directed every 30 (thirty) days. 4 Active Cholecalciferol 125 MCG (5000 UT) tablet dispersible Take 5,000 Units by mouth 1 (one) time each day. Active cyanocobalamin 2000 MCG tablet Take 1 tablet (2,000 mcg) by mouth 1 (one) time each day. Active Multiple Vitamins-Minerals (DAILY MULTIVITAMIN PO) Take by mouth. Active CRANBERRY-VITAMIN C PO Take 1 tablet by mouth 2 (two) times a day. Active methocarbamol (Robaxin) 500 MG tablet Take 1 tablet (500 mg) by mouth 1 (one) time each day if needed for muscle spasms. Active fluticasone (Flonase) 50 MCG/ACT nasal sprayIndications: Seasonal allergies Administer 2 sprays into each nostril 1 (one) time each day. 48 g 3 4 Active levocetirizine (Xyzal) 5 MG tabletIndications :Seasonal allergies Take 1 tablet by mouth daily. 90 tablet 2 5 Active desvenlafaxine (Pristiq) 50 MG 24 hr tabletIndications :Moderate episode of recurrent major depressive disorder (CMS/HCC) Take 1 tablet by mouth daily. Do not crush, chew, or split. 90 tablet 2 5 Active Cranberry-Vitamin C-Probiotic (AZO Cranberry) 250-30 MG tablet 1 capsule twice a day by oral route. Active buPROPion XL (Wellbutrin XL) 300 MG 24 hr tabletIndications :Moderate episode of recurrent major depressive disorder (CMS/HCC) Take 1 tablet by mouth every morning. Do not crush, chew, or split. 90 tablet 2 5 Active hydrOXYzine HCl (Atarax) 25 MG tabletIndications :Insomnia, unspecified type Take 2 tablets by mouth at night as needed for itching (insomnia). 180 tablet 2 5 Active estrogen, conjugated,-medro xyPROGESTERone (Prempro) 0.45-1.5 MG tablet Take 1 tablet by mouth daily. 84 tablet 5 Active pravastatin (Pravachol) 40 MG tabletIndications :Dyslipidemia,Typ e 2 diabetes mellitus without complication, without long-term current use of insulin Take 1 tablet by mouth daily. 30 tablet 5 Active Active Problems Problem Noted Date Diagnosed Date Diverticulosis of large inte hever without perforation or abscess without bleeding 01/30/2024 Umbilical hernia without obstruction or gangrene 01/30/2024 Hyperthyroidism 08/13/2023 Dyslipidemia 06/13/2023 Type 2 diabetes mellitus without complications 0 06/01/2023 Hyperlipidemia, unspecified 09/13/2021 Morbid obesity with body mass index (BMI) of 40. 0 or higher 05/23/2021 Hormone replacement therapy (HRT) 02/26/2019 HTN (hypertension), benign 09/24/2018 Chronic fatigue syndrome 06/06/2018 Chronic back pain 07/04/2017 Depression 07/04/2017 Seasonal allergies 07/04/2017 Fibromyalgia 12/03/2014 Multiple sclerosis 12/03/2014 Resolved Problems Problem Noted Date Diagnosed Date Resolved Date Type 2 diabetes mellitus with hyperglycemia 09/13/2021 11/01/2022 Lower abdominal pain 05/23/2021 022 Acute non-recurrent frontal sinusitis 10/24/2020 05/23/2021 Hyperglycemia 06/20/2020 05/23/2021 DJD (degenerative joint disease) of knee 06/06/2018 09/13/2021 GERD (gastroesophageal reflux disease) 07/04/2017 11/18/2023 Insomnia 07/04/2017 12/27/2024 Recurrent kidney stones 07/04/201705/09 Encounters Date Type Department Care Team Description 02/03/2025 Orders Only External Location [address] [place] [address] Raji Crump MD 01/28/2025 Travel 12/24/2024 Telephone [facility] [address] [place] [phone] Sobeida Barnes, PharmD Medication Therapy Management 12/21/2024 Orders Only [facility] [address] [place] [address] Juliana Valentin Morbid obesity with body mass index (BMI) of 40.0 or higher ([facility]) (Primary Dx) 12/21/2024 Orders Only [facility] [address] [place] [address] Lisa Wilhelm LPN 12/10/2024 Refill Obstetrics & Gynecology [address] [place] [address] Luther Godfrey MD 11/27/2024 Outside Procedure External Location [address] [place] [address] Syed Whitlock PA from Last 3 Months Immunizations Immunization Administration Dates Next Due Hep A, Adult 09/18/2018 HepB-CpG 01/01/2023 Influenza, Unspecified 01/14/2024,01/03/2021 Influenza, injectable, MDCK, preservative free, quadrivalent 01/01/2023,01/12/2020 Influenza, injectable, quadrivalent 12/26/2020 Influenza, injectable, quadr ivalent, preservative free 02/23/2022,11/09/2016,11/30/2015 Influenza, seasonal, injectable 01/24/2023,12/26 Influenza, seasonal, injecta ble, preservative free 01/14/2024 Moderna Covid-19 Vaccine 12y +, Mookie Protein, Preservative free 01/23/2023 Pfizer Covid-19 Vaccine 12y+ , Mookie Protein, PF, Petar-Sucrose 01/14/2024 Pfizer-BioNTech COVID-19 Biv alent (Jay Cap) 12+ years (petar-sucrose) 01/14/2024 Pfizer-BioNTech COVID-19 Vac cine (Purple Cap) 12+ 07/05/2020,06/11/2020 Pneumococcal 20-fiorella Conj Vaccine 11/01/2022 Pneumococcal Conjugate PCV 13 11/09/2016 SARS-CoV-2, Unspecified 01/22/2024,01/24/2023 Tdap 06/06/2018 Zoster, Recombinant 09/05/2018,06/24/2018 Family History Medical History Relation Name Comments Drug abuse Brother Sixto Arthritis Father Kraig COPD Father Kraig Heart disease Father Kraig Arthritis Mother Courtney Conversions - Other Mother Courtney Pulmonar y hypertension, primary Diabetes Mother Courtney Diabetes type II Mother Courtney Heart disease Mother Courtney Diabetes Mother's Brother Toney Diabetes Mother's Sister Tracy Arthritis Paternal Grandmother Deborah Rheumatologic disease Paternal Grandmother Deborah Relation Name Status Comments Brother Sixto Father Kraig Mother Courtney Mother's Brother Toney Mother's Sister Tracy Paternal Grandmother Deborah Social History Tobacco Use Types Packs/Day Years Used Date Smoking Tobacco: Never Passive Smoke Exposure: Never Smokeless Tobacco: Never Tobacco Cessation:Counseling Given: Not Answered Alcohol Use Standard Drinks/Week Comments No 0 [...] any time in the past 12 m [facility], were you homeless or living in a group home (including now)? No 07/20/2024 Utilities Answer Date [...] Orientation Straight 03/27/2021 2: 29 AM EST Last Filed Vital Signs Vital Sign Reading Time Taken Comments Blood Pressure 153/99 10/26/2024 1:20 PM EDT Pulse 68 10/26/2024 1:20 PM EDT Temperature 36.5 C (97.7 F) 10/26/2024 1:20 PM EDT Respiratory Rate 18 07/20/2024 10:00 AM EDT Oxygen Saturation 96% 10/26/2024 1:20 PM EDT Inhaled Oxygen Concentration - - Weight 109 kg (239 lb 3.2 oz) 10/26/2024 1:20 PM EDT Height 167.6 cm (5' 6 ) 10/26/2024 1:20 PM EDT Body Mass Index 38.61 10/26/2024 1:20 PM EDT Plan of Treatment Upcoming Encounters Date Type Department Care Team (Late st Contact Info) Description 05/03/2025 11:40 AM EST Office Visit [facility] [address], [address] [place] [address] Skyler Mckeon MD [address] [facility] [address] [place] [address] Health Maintenance Due Date Last Done Comments [facility]-HIV Screening 1965 [facility]-Infant/Child/Adol SDOH Screenings 1965 Diabetes: Dental Exam 10/14/1977 CT Colonography 10/14/2012 FIT 10/14/2012 FOBT 10/14/2012 Sigmoidoscopy 10/14/2012 FIT-DNA 07/05/2022 07/06/2019, 07/01/2019 [facility]-Hepatitis B Vaccines (2 of 2 - CpG 2-dose series) 01/29/2023 01/01/2023 [facility]-Pap Smear 09/28/2024 09/28/2021, 09/07, 05/13/1995 [id number] Vaccine ( season) 2024 01/22/2024, 01/14/2024, 01/14/2024, Additional history exists [facility]-Diabetes: Hemoglobin A1C 01/17/2025, 03/08/2023, 02/22/2023, Additional history exists [facility]- SDOH Screenings 01/19/2025 [facility]-Adult SDOH Screenings 01/19/2025 07/20/2024 [facility]-Breast Cancer Screening 02/16/202502/06, 10/30/2022, 10/30/2022, Additional history exists [facility]-Depression Screening 07/20/2025 07/20/2024, 07/07 [facility]-Cervical Cancer Screening 09/28/2026 [facility]-HPV/Cotest 09/28/2026 09/28/2021, 09/07, 09/27/1998, Additional history exists [facility]-DTaP,Tdap,and Td Vaccines (2 - Td or Tdap) 06/06/2028 06/06/2018 Colonoscopy 01/07/2033 01/07/2023 [facility]-Colorectal Cancer Screening 01/07/2033 [facility]-Zoster Vaccines Completed 09/05/2018, 9 [facility]-Hepatitis A Vaccines Aged Out 09/18/2018 No longer eligible based on patient's age to complete this topic [facility]-Hepatitis C Screening Completed 08/09/2019 [facility]-Pneumococcal Vaccine: 50+ Years Completed 11/01/2022, 11/09/2016 [facility]-Obesity Intervention Completed 025, 07/20/2024, 07/20/2024, Additional history exists [facility]-Influenza Vaccine Completed 12/19/2024 , 01/14/2024, 01/14/2024, Additional history exists HPV Vaccines Aged Out No longer eligi ble based on patient's age to complete this topic [facility]-HIB Vaccines Aged Out No longer e ligible based on patient's age to complete this topic [facility]-IPV Vaccines Aged Out No longer e ligible based on patient's age to complete this topic [facility]-Rotavirus Vaccines Aged Out No lo nger eligible based on patient's age to complete this topic Procedures Procedure Name Priority Date/Time Associated Diagnosis Comments COMPREHENSIVE METABOLIC PANEL, PLASMA Routine 02/03/2025 12:04 PM EDT CBC W/O DIFFERENTIAL Routine 02/03/2025 12:04 PM EDT MR SHOULDER RIGHT WO IV CONTRAST 11/27/2024 2:02 PM EDT T3 Routine 11/27/2024 1:55 PM EDT Multiple sclerosis (CMS/HCC) FREE T4, PLASMA Routine 11/27/2024 1:55 PM EDT Multiple sclerosis (CMS/HCC) TSH Routine 11/27/2024 1:55 PM EDT Multiple sclerosis (CMS/HCC) HEMOGLOBIN A1C Routine 07/20/2024 10:45 AM EDT Routine general medical examination at a [facility] facility BMI 37.0-37.9, adult Prediabetes MAMMOGRAPHY BREAST SCREENING TOMOSYNTHESIS BILATERAL 02/17/2024 10:57 AM EST COLONOSCOPY EXTERNAL RESULT 01/07/2023 PAP TEST - CYTOLOGY Routine 09/28/2021 1 0:59 AM EDT Encounter for annual routine gynecological examination HEPATITIS C ANTIBODY - ED W/REFLEX TO HCV QUANT PCR Routine 08/09/2019 5:19 AM EDT LAB COLOGUARD COLON CANCER SCREEN Routine 07/06/2019 11:29 AM EDT from Last 3 Months or Most Recently Relevant to Health Maintenance Results * (ABNORMAL) CBC W/O Differential (02/03/2025 12:04 PM EDT) External WBC 5.5 4.0 - 10.5 K/ul [facility] External Red Blood Cell (RBC) 4.6 4.2 - 6.4 M/mm3 [facility] External Hemoglobin 13.3 12.5 - 16.0 gm/dl [facility] External Hematocrit 41.2 37.0 - 47.0 % [facility] External MCV 89.0 78 - 100 fl [facility] External MCH 28.7 27 - 31 pg [facility]ATRIC External MCHC 32.3 32 - 36 g/dl [facility] External RDW 13.1 11.5 - 14.0 % [facility] External Platelets 313 150 - 450 K/ul [facility] External MPV 9.9(H) 6 - 9.5 fl [facility]IC External Manual Differential NO [facility] 02/03/2025 12:0 4 PM EDT 02/03/2025 12:44 PM EDT us Raji Crump MD LAB BLOOD ORDERABLES Final Result [facility] * (ABNORMAL) Comprehensive Metabolic Panel, Plasma (02/03/2025 12:04 PM EDT) External Sodium 140 136 - 145 mmol/L [facility] External Potassium 4.0 3.6 - 5.0 mmol/L [facility] External Chloride 105 98 - 107 mmol/L [facility] External Carbon Dioxide 25.3 21.0 - 32.0 mmol/L [facility] External Anion Gap (AG) 13.7 [facility] External Glucose 89 70 - 120 mg/dl [facility] External BUN 14 7 - 18 mg/dL [facility] External Creatinine Blood 0.8 0.6 - 1.3 mg/dL [facility] External Estimated GFR 86 60- mlpermin [facility] Comment: GFR LIMITATION: The eGFR equation CKD-EPI 2020 is not applicable for pediatric patients or greater than 90 years of age. The following conditions may alter the GFR result: extremes in body size, malnutrition or obesity, skeletal muscle disease, paraplegia or quadriplegia, vegetarian diet or rapidly changing kiney function. External Osmolality (Calculated) 291 275 - 301 mosm/kg [facility] Comment: OSMOLALITY IS A CALCULATION UTILIZING THE SERUM/PLASMA SODIUM, GLUCOSE AND UREA NITROGEN (BUN) LEVELS. FOR THE MOST ACCURATE RESULT A MEASURED SERUM OSMOLALITY IS SUGGESTED. External Total Protein 7.0 6.4 - 8.2 g/dl [facility] External Albumin 3.1(L) 3.4 - 5.0 g/dl [facility] External Globulin 3.9 [facility] External Albumin/Globuli n Ratio 0.8 0.7 - 2 [facility] External Calcium 9.1 8.5 - 10.5 mg/dl [facility] External Bilirubin Total 0.20 0.10 - 1.00 mg/dL [facility] External AST (SGOT) 26 0 - 37 U/L [facility] External ALT (SGPT) 30 0 - 65 U/L [facility] External Alkaline Phosphatase 116 46 - 116 U/L [facility] 02/03/2025 12:0 4 PM EDT 02/03/2025 12:44 PM EDT us Raji Crump MD LAB BLOOD ORDERABLES Final Result [facility] * MR Shoulder Right wo IV Contrast (11/27/2024 2:02 PM EDT) Anatomical Region Laterality Modality Upper Extremities Right Magnetic Reson ance 11/27/2024 2:02 PM EDT Narrative 11/27/2024 3:59 PM EDT [id number] [place] [address] Name: MAX MORRISSEY Exam Date: 11/27/2024 : 1965 Age 59 years Gender: F Physician: SYED WHITLOCK Facility: [facility] Facility HSV: Outpatient Exam: MRI SHOULDER W/O [...] also be obtained. Electronically signed by: Jaziel Kirkpatrick MD 11/27/2024 03:56 PM EDT RP Dictated By: JAZIEL KIRKPATRICK Transcribed By: Transcribed On: 11/27/2024 3:56 PM Electronically signed by: JAZIEL KIRKPATRICK 11/27/2024 Thank you for referring MAX MORRISSEY to [facility]. Legally authenticated by CARROL Clayton 2024-11-27 15:56:09 Procedure Note Provider, [facility] - 11/27/2024 [place] [address] Name: MAX MORRISSEY Exam Date: 11/27/2024 : 1965 Age 59 years Gender: F Physician: SYED WHITLOCK Facility: [facility] Facility HSV: Outpatient Exam: MRI SHOULDER W/O [...] also be obtained. Electronically signed by: Jaziel Kirkpatrick MD 11/27/2024 03:56 PM EDT RP Dictated By: JAZIEL KIRKPATRICK Transcribed By: Transcribed On: 11/27/2024 3:56 PM Electronically signed by: JAZIEL KIRKPATRICK 11/27/2024 Thank you for referring MAX MORRISSEY to [facility]. Legally authenticated by CARROL Clayton 2024-11-27 15:56:09 us Syed Counts BALAJI IMG MRI PROCEDURES Final Resul t * T3 (11/27/2024 1:55 PM EDT) External T3 95 71 - 180 ng/dL [facility] Comment: Performed at: - [facility] [id number] [place] General Manager: Dima Jones PhD, Phone: [phone] 11/27/2024 1:55 PM EDT 11/27/2024 1:55 PM EDT us Generic Daggett Provider LAB BLOOD ORDERABLES Final Result [facility] * Thyroid Stimulating Hormone, Plasma (11/27/2024 1:55 PM EDT) External TSH 1.50 0.36 - 3.74 mIU/L [facility] 11/27/2024 1:55 PM EDT 11/27/2024 1:55 PM EDT us Generic Daggett Provider LAB BLOOD ORDERABLES Final Result [facility] * Free T4, Plasma (11/27/2024 1:55 PM EDT) External Free T4 0.80 0.76 - 1.46 ng/dl [facility] 11/27/2024 1:55 PM EDT 11/27/2024 1:55 PM EDT us [facility] Provider LAB BLOOD ORDERABLES Final Result Performing Organization Address City/[facility]/ZIP Co de Phone Number [facility] * Hemoglobin A1c (07/20/2024 10:45 AM EDT) Hemoglobin A1c 5.3 <5.7 % 07/20/2024 2:25 PM EDT [facility] Blood Venous blood specimen / Unknown Venipuncture / Unknown 07/20/2024 10:45 AM EDT 07/20/2024 10:45 AM EDT Narrative [facility] - 07/20/2024 2:25 PM EDT HA1C Interpretive Data: Diagnosis of Diabetes: Diabetic > or = 6.5% Pre-diabetic 5.7 to 6.4% Non-diabetic < or = 5.6% Glycemic Targets for Type I and Type II Diabetics: Non- Adults <7.0% Adults <6.0% Children and Adolescents <7.5% Source: [place] [employer]. Standards of medical care in diabetes,2017. Diabetes Care.2017:40 (suppl 1):S1-S135. us Mily Alamo APRN LAB BLOOD ORDERABLES Final Resu lt [facility] [address] [place] [address] * Mammography Breast Screening Tomosynthesis Bilateral (02/17/2024 10:57 AM EST) Anatomical Region Laterality Modality Breast Bilateral Mammography 02/17/2024 10:5 7 AM EST Narrative 02/17/2024 3:59 PM EST [address] [address] Name: MAX MORRISSEY Exam Date: 02/17/2024 : 1965 Age 58 years Gender: F Physician: LUTHER GODFREY Facility: [facility] Facility HSV: Outpatient Exam: KEISHA SCRN [...] Electronically signed by:Tello Zavala MD02/17/2024 03:56 PM [facility] Dictated By: Tello Zavala Transcribed By: Transcribed On: 02/17/2024 12:58 PM Electronically signed by: Tello Zavala 02/17/2024 Thank you for referring MAX MORRISSEY to [facility]. Legally authenticated by PRACHI BUCHANAN 2024-02-17 12:58:01 Procedure Note Provider, Zaria Daggett - 02/17/2024 [facility] [address] [place] [address] Name: MAX MORRISSEY Exam Date: 02/17/2024 : 1965 Age 58 years Gender: F Physician: LUTHER GODFREY Facility: [facility] Facility HSV: Outpatient Exam: KEISHA SCRN [...] Electronically signed by:Tello Zavala MD02/17/2024 03:56 PM [facility] Dictated By: Tello Zavala Transcribed By: Transcribed On: 02/17/2024 12:58 PM Electronically signed by: Tello Zavala 02/17/2024 Thank you for referring MAX MORRISSEY to [facility]. Legally authenticated by PRACHI BUCHANAN 2024-02-17 12:58:01 Luther Godfrey MD IMG BI PROCEDURES Final Result * COLONOSCOPY EXTERNAL RESULT (01/07/2023) Anatomical Region Laterality Modality Endoscopy Narrative 01/07/2023 Ordered by an unspecified provider. us External Provider GI PROCEDURE ORDERABLES Final Result * Pap Smear (09/28/2021 10:59 AM EDT) Case Report Cytology Case: [id number] Authorizing Provider: Luther Godfrey MD Collected: 09/28/2021 1059 Ordering Location: Obstetrics & Gynecology Received: 09/29/2021 0903 First Screen: Rg Patino Specimen: ThinPrep Pap Test, Liquid-Based Cervical/Vaginal, CERVICAL/VAGINAL 10/02/2021 7:33 AM EDT [facility] Interpretation NEGATIVE FOR INTRAEPITHELIAL LESION OR MALIGNANCY 10/02/2021 7:33 AM EDT [facility] at 0733 EDT Specimen Adequacy Satisfactory for evaluation; endocervical/anna sformation zone component present. Slide scanned and imaged by ThinPrep Imaging System with manual review of all selected dumont. 10/02/2021 7:33 AM EDT [facility] Cervical cytology is a screening test primarily for squamous cancers and precursors and has associated false negative and positive results. New technologies such as liquid based sampling may decrease but will not eliminate all false negative results. Regular screening and follow-up of unexplained clinical signs and symptoms are recommended to minimize false negative results. Please see the ASCCP website (www.asccp.org)fo r followup recommendations. If HPV testing was requested, correlation with the results is suggested (please call Microbiology at [phone] for results). 10/02/2021 7:33 AM EDT [facility] Menstrual Status Post-Menopausal 7:33 AM EDT [facility] History of Hysterectomy Not Applicable 10/02/2021 7:33 AM EDT [facility] Contraceptive History Not Applicable 10/02/2021 7:33 AM EDT [facility] Screening Type Routine Screen 2021 7:33 AM EDT [facility] High Risk? No 10/02/2021 7:33 AM EDT [facility] HPV Testing Requested? Request HPV Testing Regardless of Pap Test Findings 10/02/2021 7:33 AM EDT [facility] Previous Cancer History No 10/02/2021 7:33 AM EDT [facility] Clinical Information Z01.419 - Encounter for annual routine gynecological examination [ICD-10-CM] 10/02/2021 7:33 AM EDT [facility] Last Menstrual Period unknown 10/02/2021 7:33 AM EDT [facility] Swab Vaginal and cervical cytologic material / Unknown Non-blood Collection / Unknown 09/28/2021 10:59 AM EDT 09/29/2021 9:25 AM EDT Luther Godfrey MD LAB CYTOLOGY ORDERABLES Final R esult Performing Organization Address City/[facility] Co de Phone Number [facility] [address] [place] [address] * Nahma Hepatitis C Antibody (08/09/2019 5:19 AM EDT) Nahma Hepatitis C Ab NEGATIVE Reference Range: Negative [facility] 08/09/2019 5:19 AM EDT 08/09/2019 6:14 AM EDT Ravinder Gomes MD LAB BLOOD ORDERABLES Final Re sult Performing Organization Address [facility] Co de Phone Number [facility] * Cologuard (07/06/2019 11:29 AM EDT) Cologuard Negative [employer] 07/06/2019 11:2 9 AM EDT Historical Provider LAB MOLECULAR DIAGNOSTICS OR DERABLES Final Result Performing Organization Address City/[facility] Co de Phone Number [employer] from Last 3 Months or Most Recently Relevant to Health Maintenance Insurance MEDICAID Care Teams Coffee Maker Relationship Specialty Start Date End Date Mily Alamo APRN [address] [place] [address] PCP - General Family Medicine 09/25/21
--- OUTSIDE RECORDS SUMMARY | 2025-02-27 18:19 | XMS_ITS | Encounter Summary ---
Author Organization Healthcare Address [address] [place] [address] Care Team Providers Care Fruit Peeler Name Role Phone Jasmeet Mily Jia HASTINGS Primary Care Provider [phone] Encounter Details Date Type Department Care Team (Late Contact Info) Description 06/20/2022 Outside Procedure External Location [address] [phone] Aurelia Nuñez P, DO [address] [place] [address] Social History Tobacco Use Types Packs/Day Years Used Date Smoking Tobacco: Never Smokeless Tobacco: Never Alcohol Use Standard Drinks/Week Comments No 0 (1 standard drink = 0.6 oz pur e alcohol) PHQ-2 Answer Date Recorded Patient Health Questionnaire-2 Score 6 05/29/2022 Comments No Sex and Gender Information Value [...] suspected to have Coronavirus/COVID-19? No / Unsure 05/29/2022 12:56 PM EST documented as of this encounter Plan of Treatment Upcoming Encounters Date Type Department Care Team (Late Contact Info) Description 05/03/2025 11:40 AM EST Office Visit Professional [facility] [address], [address] [place] [address] Skyler Mckeon MD [address] [facility] [address] [place] [address] documented as of this encounter Procedures Procedure Name Priority Date/Time Associated Diagnosis Comments MR HEAD W AND WO IV CONTRAST 06/20/2022 1:56 PM EDT documented in this encounter Results * MR Head w and wo IV Contrast (06/20/2022 1:56 PM EDT) Anatomical Region Laterality Modality Head Magnetic Resonan ce 06/20/2022 1:56 PM EDT Narrative 07/02/2022 12:44 PM EDT [address] [address] Name: MAX MORRISSEY Exam Date: 06/20/2022 : 1965 Age 56 Gender: F Physician: AURELIA NUÑEZ Facility: [facility] Facility HSV: Outpatient Exam: MRI BRAIN W/W/O FINAL REPORT CLINICAL HISTORY: Annual f/u for MS (dx 8 years ago). C/o flare up with vision changes and bilateral hand numbness x1 month. Also c/o constant vertigo. No other complaints. COMPARISON: 05/02/2021 FINDINGS: Multiplanar MR imaging of the brain was performed without and with contrast. Again noted are multiple foci of increased T2 signal in the cerebral white matter consistent with patient's history of MS. These are overall stable in size and appearance. There is no evidence of intracranial hemorrhage or mass. No abnormal extra-axial fluid collection is seen. The ventricular size is within normal limits. There is no evidence of shift of the midline structures. The posterior fossa and brainstem have an unremarkable appearance. There is a focus of abnormal signal posterior right frontal cortex which shows heterogeneous contrast enhancement. This is stable since the prior exam and favored to represent cavernous angioma. There are no other areas of abnormal contrast enhancement. Normal major vessel vascular flow voids are noted. IMPRESSION: Stable areas of presumed demyelination consistent with patient's history of multiple sclerosis. Stable focus of contrast enhancement posterior right frontal lobe may represent cavernous angioma. No new abnormal contrast enhancement. Reviewed, Interpreted and Dictated by Sixto Saunders III, MD Transcribed by Mayra Lange Authenticated and EASTERN Dictated By: SIXTO SAUNDERS Transcribed By: Transcribed On: 06/21/2022 6:37 AM Electronically signed by: SIXTO SAUNDERS 06/21/2022 Thank you for referring MAX MORRISSEY to [facility]. Legally authenticated by SUSHILA Perez III 2022-06-21 06:37:11 Procedure Note Provider, [facility] - 07/02/2022 [place] [address] Name: MAX MORRISSEY Exam Date: 06/20/2022 : 1965 Age 56 Gender: F Physician: AURELIA NUÑEZ Facility: [facility] Facility HSV: Outpatient Exam: MRI BRAIN W/W/O FINAL REPORT CLINICAL HISTORY: Annual f/u for MS (dx 8 years ago). C/o flare up with vision changes and bilateral hand numbness x1 month. Also c/o constant vertigo. No other complaints. COMPARISON: 05/02/2021 FINDINGS: Multiplanar MR imaging of the brain was performed without and with contrast. Again noted are multiple foci of increased T2 signal in the cerebral white matter consistent with patient's history of MS. These are overall stable in size and appearance. There is no evidence of intracranial hemorrhage or mass. No abnormal extra-axial fluid collection is seen. The ventricular size is within normal limits. There is no evidence of shift of the midline structures. The posterior fossa and brainstem have an unremarkable appearance. There is a focus of abnormal signal posterior right frontal cortex which shows heterogeneous contrast enhancement. This is stable since the prior exam and favored to represent cavernous angioma. There are no other areas of abnormal contrast enhancement. Normal major vessel vascular flow voids are noted. IMPRESSION: Stable areas of presumed demyelination consistent with patient's history of multiple sclerosis. Stable focus of contrast enhancement posterior right frontal lobe may represent cavernous angioma. No new abnormal contrast enhancement. Reviewed, Interpreted and Dictated by Sixto Saunders III, MD Transcribed by Mayra Lange Authenticated and EASTERN Dictated By: SIXTO SAUNDERS Transcribed By: Transcribed On: 06/21/2022 6:37 AM Electronically signed by: SIXTO SAUNDERS 06/21/2022 Thank you for referring MAX MORRISSEY to [facility]. Legally authenticated by SUSHILA Perez III 2022-06-21 06:37:11 us Aurelia Nuñez DO IMG MRI PROCEDURES Final Resu lt documented in this encounter Visit Diagnoses Not on filedocumented in this encounter Additional Health Concerns Assessment Noted Time PHQ-9 Depression Total Score: 19 023 1:09 PM EST A fall risk assessment has been complete d for the patient 09/13/2021 11:00 AM EDT A Body Mass Index follow-up plan has been documented for the patient 05/29/2022 1:34 PM EST documented as of this encounter Care Teams Fruit Peeler Relationship Specialty Start Date End Date Mily Alamo APRN [address] [place] [address] PCP - General Family Medicine 09/25/21 documented as of this encounter
--- OUTSIDE RECORDS SUMMARY | 2025-02-27 18:19 | XMS_ITS | Encounter Summary ---
Author Organization [facility] Address [address] [place] [address] Care Team Providers Care Healthcare Sales Representative Name Role Phone Mily Alamo APRN Primary Care Provider [phone] Encounter Details Date Type Department Care Team ([facility] st Contact Info) Description 10/30/2022 Outside Procedure External Location [address] [place] [address] Luther Godfrey MD [address] [place] [address] Social History Tobacco Use Types Packs/Day [...] Description 05/03/2025 11:40 AM EST Office Visit [facility] [address], [address] [place] [address] Skyler Mckeon MD [address] [facility] [address] [place] [address] documented as of this encounter Procedures Procedure Name Priority Date/Time Associated Diagnosis Comments MAMMOGRAPHY BREAST SCREENING TOMOSYNTHESIS BILATERAL 10/30/2022 3:16 PM EDT documented in this encounter Results * Mammography Breast Screening Tomosynthesis Bilateral (10/30/2022 3:16 PM EDT) Anatomical Region Laterality Modality Breast Bilateral Mammography 10/30/2022 3:16 PM EDT Narrative 11/02/2022 9:20 [place] [address] Name: HAYLIE MORRISSEY Exam Date: 10/30/2022 : 1965 Age 57 Gender: F Physician: LUTHER GODFREY Facility: [facility] Facility HSV: Outpatient Exam: KEISHA SCRN MAMMO W/CAD BILAT MAMMOGRAM SCREENING BILATERAL HISTORY: Routine screening exam COMPARISON: October 06, 2021 TECHNIQUE: Standard digital 2-D views with 3-D tomosynthesis DENSITY: There are scattered areas of fibroglandular density FINDINGS: Benign calcifications. Scattered areas of focal asymmetry are noted. No new suspicious mass, suspicious calcifications or architectural distortion is present. IMPRESSION: No mammographic evidence of malignancy BI-RADS 2: Benign finding RECOMMENDATION: Annual mammography CAD was utilized during interpretation. The patient will be sent a letter from the mammography department with their mammography results. Dictated By: Giovanna Lindsay Transcribed By: Giovanna Santos Transcribed On: 11/02/2022 9:07 AM Electronically signed by: Giovanna Lindsay 11/02/2022 Thank you for referring HAYLIE MORRISSEY to [facility]. Legally authenticated by NAYELI WALTERS 2022-11-02 09:07:09 Procedure Note Provider, [facility] 11/02/2022 [place] [address] Name: HAYLIE MORRISSEY Exam Date: 10/30/2022 : 1965 Age 57 Gender: F Physician: LUTHER GODFREY Facility: [facility] Facility HSV: Outpatient Exam: KEISHA SCRN MAMMO W/CAD BILAT MAMMOGRAM SCREENING BILATERAL HISTORY: Routine screening exam COMPARISON: October 06, 2021 TECHNIQUE: Standard digital 2-D views with 3-D tomosynthesis DENSITY: There are scattered areas of fibroglandular density FINDINGS: Benign calcifications. Scattered areas of focal asymmetry arenoted. No new suspicious mass, suspicious calcifications or architecturaldistortion is present. IMPRESSION: No mammographic evidence of malignancy BI-RADS 2: Benign finding RECOMMENDATION: Annual mammography CAD was utilized during interpretation. The patient will be sent a letter from the mammography department withtheir mammography results. Dictated By: Giovanna Lindsay Transcribed By: Giovanna Santos Transcribed On: 11/02/2022 9:07 AM Electronically signed by: Giovanna Lindsay 11/02/2022 Thank you for referring HAYLIE MORRISSEY to [facility]. Legally authenticated by NAYELI WALTERS 2022-11-02 09:07:09 us Luther Godfrey MD IMG BI PROCEDURES Final Result documented in this encounter Visit Diagnoses Not on filedocumented in this encounter Additional Health Concerns Assessment Noted Time PHQ-9 Depression Total Score: 18 04/18/2 023 1:15 PM EDT A fall risk assessment has been complete d for the patient 10/23/2022 11:45 AM EDT A Body Mass Index follow-up plan has been documented for the patient 10/23/2022 12:16 PM EDT documented as of this encounter Care Teams Healthcare Sales Representative Relationship Specialty Start Date End Date Mily Alamo APRN [address] [place] [address] PCP - General Family Medicine 09/25/21 documented as of this encounter
--- OUTSIDE RECORDS SUMMARY | 2025-02-27 18:19 | XMS_ITS | Encounter Summary ---
Author Organization [facility] Address [address] [place] [address] Care Team Providers Care Manufacturing Weaver Name Role Phone Jasmeet Milyartie Ro APRN Primary Care Provider [phone] Encounter Details Date Type Department Care Team ([facility] st Contact Info) Description 02/03/2025 Orders Only External Location [address] [place] [address] Raji Crump MD [address] [phone] Social History Tobacco Use Types Packs/Day Years [...] place to sleep or slept in a nursing home (including now)? No 07/24/2023 PHQ-9 Answer [...] any time in the past 12 m [facility], were you homeless or living in a nursing home (including now)? No 07/20/2024 Utilities Answer Date Recorded In the past 12 months has th e [employer], gas, oil, or water [employer] threatened to shut off services in your [...] 05/03/2025 11:40 AM EST Office Visit Professional [facility] [place] [facility] [address], [address] [place] [address] Skyler Mckeon MD [address] [facility] [address] [place] [address] documented as of this encounter Procedures Procedure Name Priority Date/Time Associated Diagnosis Comments CBC W/O DIFFERENTIAL Routine 02/03/2025 12:04 PM EDT COMPREHENSIVE METABOLIC PANEL, PLASMA Routine 02/03/2025 12:04 PM EDT documented in this encounter Results * (ABNORMAL) Comprehensive Metabolic Panel, Plasma (02/03/2025 12:04 PM EDT) External Sodium 140 136 - 145 mmol/L [facility] External Potassium 4.0 3.6 - 5.0 mmol/L [facility] External Chloride 105 98 - 107 mmol/L [facility] External Carbon Dioxide 25.3 21.0 - 32.0 mmol/L [facility] External Anion Gap (AG) 13.7 [facility] External Glucose 89 70 - 120 mg/dl [facility] External BUN 14 7 - 18 mg/dL [facility] External Creatinine Blood 0.8 0.6 - 1.3 mg/dL [facility] External Estimated GFR 86 60- mlpermin [facility] Comment: GFR LIMITATION: The eGFR equation CKD-EPI 2020 is not applicable for pediatric patients or greater than 90 years of age. The following conditions may alter the GFR result: extremes in body size, malnutrition or obesity, skeletal muscle disease, paraplegia or quadriplegia, vegetarian diet or rapidly changing kiney function. External Osmolality (Calculated) 291 275 - 301 mosm/kg [facility] Comment: OSMOLALITY IS A CALCULATION UTILIZING THE SERUM/PLASMA SODIUM, GLUCOSE AND UREA NITROGEN (BUN) LEVELS. FOR THE MOST ACCURATE RESULT A MEASURED SERUM OSMOLALITY IS SUGGESTED. External Total Protein 7.0 6.4 - 8.2 g/dl [facility] External Albumin 3.1(L) 3.4 - 5.0 g/dl [facility] External Globulin 3.9 [facility] External Albumin/Globuli n Ratio 0.8 0.7 - 2 [facility] External Calcium 9.1 8.5 - 10.5 mg/dl [facility] External Bilirubin Total 0.20 0.10 - 1.00 mg/dL [facility] External AST (SGOT) 26 0 - 37 U/L [facility] External ALT (SGPT) 30 0 - 65 U/L [facility] External Alkaline Phosphatase 116 46 - 116 U/L [facility] 02/03/2025 12:0 4 PM EDT 02/03/2025 12:44 PM EDT us Raji Crump MD LAB BLOOD ORDERABLES Final Result [facility] * (ABNORMAL) CBC W/O Differential (02/03/2025 12:04 PM EDT) External WBC 5.5 4.0 - 10.5 K/ul [facility] External Red Blood Cell (RBC) 4.6 4.2 - 6.4 M/mm3 [facility] External Hemoglobin 13.3 12.5 - 16.0 gm/dl [facility] External Hematocrit 41.2 37.0 - 47.0 % [facility] External MCV 89.0 78 - 100 fl [facility] External MCH 28.7 27 - 31 pg [facility] External MCHC 32.3 32 - 36 g/dl [facility] External RDW 13.1 11.5 - 14.0 % [facility] External Platelets 313 150 - 450 K/ul [facility] External MPV 9.9(H) 6 - 9.5 fl [facility] External Manual Differential NO [facility] 02/03/2025 12:0 4 PM EDT 02/03/2025 12:44 PM EDT us Raji Crump MD LAB BLOOD ORDERABLES Final Result [facility] documented in this encounter Visit Diagnoses Not [...] documented as of this encounter Care Teams Manufacturing Weaver Relationship Specialty Start Date End Date Mily Alamo APRN [address] [place] [id number] PCP - General Family Medicine 09/25/21 documented as of this encounter
--- NOTE | 2025-02-27 18:23 | ED_ITS ---
<Statement entered by Jamie Lewis DO - 02/27/25 21:56> I was consulted by the MERRICK, and we discussed the complexity of problems being addressed. I approved the treatment and management plan for this patient's care in the emergency department, thus performing a substantive portion of the medical decision making. Jamie Lewis DO Discharge Plan Disposition Patient Disposition: Home, Self-Care Referrals Follow up/Referrals: Matthias Han DO [Staff Physician, Orthopedics] - See instructions Mily Alamo APRN [Primary Care Provider, Medical] - See instructions Activity Restrictions/Add. Instructions Additional Instructions/Restrictions: Today you were evaluated in the emergency department for left foot and ankle pain. Although there is no acute fracture on the x-ray, I feel that you may have injured your tendon. Please follow-up with Dr. Han if no improvement in 1 week. Please wear the walking boot for 1 night. You may take acetaminophen for pain. Please return to the ED for worsening of condition. Clinical Impressions Clinical Impression: Acute pain of left foot Instructions Patient Instructions: DI for Foot Pain Print Language Print Language: Cape Verdean Discharge ED Provider: Jamie Lewis General Adult HPI General Chief complaint: Extremity Injury, Lower Stated complaint: AO 02-27 hurt left foot Time Seen by Provider: 02/27/25 17:55 Mode of Arrival: Ambulatory Source of Information: Patient Description of Symptoms (Recalled from ER Triage Doc. by RN): patient states she was getting off the couch and her left foot was asleep and she felt a pop in her left foot. she reports there is a knot on the outer aspect of her left foot. 510 pain History of Present Illness HPI narrative: patient is a 59-year-old female PMHx fibromyalgia, MS, chronic pain who presents to the ED for left ankle and left foot pain. Patient states she was standing up from the couch earlier today when she outwardly twisted her left ankle, causing most of her pain to be in the left foot. She is ambulatory with pain. Related Data Allergies Allergy/AdvReac Type Severity Reaction Status Date / Time acetaminophen (From Percocet) AdvReac Hives Verified 02/27/25 18:04 codeine AdvReac Hives Verified 02/27/25 18:03 modafinil AdvReac Difficulty Verified 02/27/25 18:05 Breathing oxycodone (From Percocet) AdvReac Hives Verified 02/27/25 18:04 [facility] Disclaimer: The information contained in this section may have been updated after the patient was seen, as this information can be updated by other users. Social History Smoking Status: Current every day smoker alcohol intake: never current occupational status: unemployed Travel in the last 8 weeks?: None ROS Obtained: Yes Systems reviewed as appropriate & no additional complaints except as documented Physical Exam General General appearance: alert Eye Eye exam: Present PERRL Neck Neck exam: Present full ROM Respiratory Respiratory exam: Present normal lung sounds bilaterally Cardiovascular Cardiovascular exam: Present regular rate Abdominal Exam Abdominal exam: Present soft Extremities Exam Extremities exam: Present tenderness (left lateral foot, small area of edema over peroneal tendon) Neurological Exam Neurological exam: Present alert and oriented X3; Absent motor sensory deficit Skin Skin exam: Present dry Medical Decision Making Medical Records Screening: Per USPSTF and CDC recommendations, given the prevalence of disease in our region, it is our hospital?s policy to screen for HIV and viral Hepatitis for all patients aged 18 and over and those with ongoing risk factors. Umer Inquiry Pt receiving controlled substance: No Vital Signs: 02/27/25 17:55 02/27/25 17:56 02/27/25 18:30 Temperature 98.1 F Temperature Source Oral Pulse Rate 71 63 Pulse Rate [Right Radial] 86 Respiratory Rate 15 Blood Pressure 139/75 Blood Pressure [Right Arm] 139/75 Blood Pressure Mean [Right Arm] 96 Blood Pressure Source [Right Arm] Automatic Cuff Blood Pressure Position [Right Arm] Supine 02 Sat by Pulse Oximetry 97 96 95 Oxygen Delivery Method Room Air Room Air Room Air 02/27/25 19:37 Temperature 98.2 F Temperature Source Pulse Rate 74 Pulse Rate [Right Radial] Respiratory Rate 18 Blood Pressure 129/88 Blood Pressure [Right Arm] Blood Pressure Mean [Right Arm] Blood Pressure Source [Right Arm] Blood Pressure Position [Right Arm] 02 Sat by Pulse Oximetry Oxygen Delivery Method Room Air Orders (Tests/Meds): ORDERS Category Date Time Status Ankle XR - Left 2 Views [XR ankle LT 2V] Stat Exams 02/27/25 18:18 Completed Foot XR left minimum 3 views [XR foot LT min 3V] Stat Exams 02/27/25 18:18 Completed Medical Decision Narrative: In summary, patient is a 59-year-old female PMHx fibromyalgia, MS, chronic pain who presents to the ED for left ankle and left foot pain. Patient states she was standing up from the couch earlier today when she outwardly twisted her left ankle, causing most of her pain to be in the left foot. She is ambulatory with pain. Has not had any injury or surgery to this foot or ankle in the past. Has not taken any Tylenol or Motrin prior to arrival. Denies fall or other injuries. Upon initial evaluation she is alert, oriented and cooperative. Her physical exam is remarkable for an intact neurovascular status, mild left ankle tenderness, left lateral foot tenderness, mild area of swelling over the peroneal tendon. Differential diagnosis include peroneal tendon injury, fracture, chip fracture, among others. I discussed with patient that we will symptomatically manage with Tylenol and obtain imaging. She is agreeable to plan of care at this time. X-rays were unremarkable for any fracture. Patient placed in walking boot, advised to follow-up with Dr. Han within 1 week. We discussed taking acetaminophen for pain. Advised to return to the ED for any worsening of condition. Patient was given instructions on how to use a walking boot. Critical Care Critical Care Time Critical Care Time: No
[2025-02-27 18:30] VITALS: PULSE 63; O2SAT 95
[2025-02-27 19:37] VITALS: BP 129/88; PULSE 74; RESP 18; TEMP 36.8; O2SAT 97
== END 2025-02-27 19:38 | disposition home or self-care (01) ==
PROVIDERS: Emergency Provider Student in an Organized Health Care Education/Training Program; PCP Nurse Practitioner Family
DX: M79.672 Pain in left foot (principal); X50.1XXA Overexertion from prolonged static or awkward postures, initial encounter
CPT/HCPCS: 73600; 73630; 99283